=== PATIENT | male | born 1945 | race Caucasian/White ===

== ENCOUNTER 2019-09-15 19:54 | Inpatient (IN) ==
[2019-09-15] MEDS ORDERED: IOPAMIDOL 100 ML BOTTLE IV ONE (19:55)
[2019-09-15] MEDS ORDERED: ONDANSETRON 4 MG/2 ML VIAL IV ONE (20:19)
[2019-09-15] MEDS ORDERED: HYDROmorphone 2 MG/ML VIAL IV PRN (20:19)
[2019-09-15] MEDS ORDERED: 0.9 % SODIUM CHLORIDE 1,000 ML IV ONE (20:19)
[2019-09-15 20:36] LABS: POC Blood Urea Nitrogen 17 mg/dl (8-23); POC CO2 27 mmol/L (22-30); POC Calcium, Ionized 1.17 mmol/L (1.16-1.32); POC Chloride 103 mmol/L (96-108); POC Creatinine 0.9 mg/dl (0.7-1.2); POC Glucose, Random 122 mg/dL (70-105); POC Potassium 3.9 mmol/L (3.3-5.1); POC Sodium 140 mmol/L (133-145)
--- NOTE | 2019-09-15 20:39 | Emergency Department Note ---
Abdominal Pain HPI - General Chief Complaint: Abdominal Pain Stated Complaint: abdominal pain, bowel obstruction Time Seen by Provider: 09/15/19 19:57 Source: patient Mode of arrival: ambulatory Limitations: no limitations - History of Present Illness HPI Narrative: Reason for visit: Patient reports 9 out of 10 abdominal pain he describes as a sharp pressure. Ports the pain is a band across his upper 2 quadrants. Reports this pain began at 2:00 this afternoon and increases with activity. He reports extensive abdominal history involves partial colectomy and a history of colostomy. Reports a history of cholecystectomy having his appendix removed as well. He states that he has a history of bowel obstructions and that this current presentation and pain is much like previous experiences. He has chronic loose stools due to his history. He informed me that he has had 3 bowel movements today that were watery and smaller than usual. He denies passing flatulence since this pain began this afternoon. He denies specific chest pain or significant weakness. Denies palpations or shortness of breath. Patient reports that he ate a small amount of chicken for dinner today and had a propel to drink. Was at 1730 this evening. - Related Data Home Medications Medication Instructions Recorded Confirmed prednisolone acetate 1 % eye 1 drp OS DAILY 07/25/15 09/15/19 drops,suspension Brimonidine Ophth Drops [Alphagan 1 gtt OS BID 11/14/15 09/15/19 P Ophth Drops] brinzolamide 1 % eye 2 drp OS BID ml 12/24/17 09/15/19 drops,suspension Cetirizine HCl/Pseudoephedrine 1 tab PO ACB 09/15/19 09/15/19 [All Day Allergy-D Tablet] Clobetasol Propionate [Temovate] 1 applic TOPICAL DAILY 09/15/19 09/15/19 Omeprazole [Prilosec] 20 mg PO ACB 09/15/19 09/15/19 Tamsulosin HCl [Flomax] 0.4 mg PO QHS 09/15/19 09/15/19 metFORMIN HCL [Fortamet] 500 mg PO QHS 09/15/19 09/15/19 Previous Rx's Medication Instructions Recorded desonide 0.05 % topical ointment 1 applic TOPICAL QDAY #60 g 07/09/17 escitalopram oxalate 20 mg tablet 20 mg PO QDAY #90 tab 03/03/19 fluticasone propionate 50 1 spray INTRANASAL QDAY #9.9 g 04/08/19 mcg/actuation nasal spray,suspension Meclizine [Antivert] 25 mg PO TIDP PRN #20 tab 08/23/19 Allergies Allergy/AdvReac Type Severity Reaction Status Date / Time [id number]-Mfe Reductase AdvReac Intermediate Myalgia Verified 07/14/19 14:18 Inhibitor meperidine [From Demerol] AdvReac Mild Hypotension Verified 09/16/19 07:03 morphine AdvReac Mild Hallucinati Verified 09/16/19 07:03 ons Review of Systems Constitutional: Denies: fever, chills, weakness Eyes: Denies: vision change ENT ED: Denies: ear pain, throat pain, congestion Cardiovascular: Denies: chest pain, palpitations Respiratory: Denies: shortness of breath, cough, wheezes Gastrointestinal: Reports: abdominal pain, nausea, diarrhea (Reports watery smaller than usual stools see HPI.), constipation. Denies: vomiting Genitourinary: Denies: dysuria, frequency Musculoskeletal: Denies: back pain, joint swelling, joint pain Integumentary: Denies: rash, lesions Neurological: Denies: headache, weakness, numbness Endocrine: Denies: fatigue Hematological/Lymphatic: Denies: easy bleeding, easy bruising, lymphadenopathy Allergic/Immunologic: Denies: urticaria Abdominal Pain PMH - Past Medical History Medical history: Reports: DM, hypertension, other. Denies: chronic anticoagulation, chronic narcotics, CVA, myocardial infarction Psychiatric history: Reports: no psych history - Social History Smoking status: Former smoker Drug use: Reports: none Physical Exam Limitations: no limitations General appearance: alert Head: atraumatic, normocephalic, normal inspection Eye: Present: normal appearance, PERRL. Absent: scleral icterus ENT: Present: normal exam, normal oropharynx, mucous membranes moist. Absent: nasal congestion Neck: Present: normal inspection, full ROM, trachea midline. Absent: tenderness, lymphadenopathy Respiratory: Present: normal lung sounds bilaterally. Absent: respiratory distress Cardiovascular: Present: regular rate, normal rhythm Abdominal: Present: distention, tenderness, guarding, hyperactive bowel sounds, hypoactive bowel sounds, mass (Noticed the mass left upper quadrant, patient reports this is unusual), scar (Old well-healed scars and prior procedures. See HPI.). Absent: rigidity, normal bowel sounds (Noticed hyperactive bowel tones upper 2 quadrants. Hypoactive lower 2 quadrants.), organomegaly, Faye's sign, Rovsing's sign, tenderness at [place]'s Point Abdominal tenderness: Present: RUQ, LUQ (Ports pressure in both upper quadrants. Tolerates light palpation.). Absent: karthik umbilical Extremities: Present: normal inspection, full ROM. Absent: tenderness Back: Present: normal inspection, full ROM. Absent: tenderness, CVA tenderness (R), CVA tenderness (L) Neurological: Present: alert, oriented X3, CN II-XII intact, normal gait Psychiatric: Present: normal affect, normal mood (Patient is pleasant good historian.) Skin: Present: warm, dry, intact, normal color. Absent: diaphoretic Course Course Narrative: Current plan is to the patient's abdominal pain and nausea. Patient's history presentation will order a CT abdomen with contrast to search for bowel obstruction or other abdominal disease that may be causing presentation. After reviewing CT results I discussed this with Dr. galan. He directed me to call the surgeon for possible admit. I talked to Dr. Melgoza. He has agreed to admit this patient tonight. Discussed this with Dr. galan and turned over care to him. Vital Signs Temperature 96.7 F L 09/15/19 19:57 Pulse Rate 62 09/15/19 19:57 Respiratory Rate 16 09/15/19 19:57 Blood Pressure 155/94 09/15/19 19:57 Pulse Oximetry (%) 97 09/15/19 19:57 Temperature 98.0 F 09/17/19 13:30 Pulse Rate 58 L 09/17/19 13:30 Respiratory Rate 16 09/17/19 13:30 Blood Pressure 138/81 09/17/19 13:30 Pulse Oximetry (%) 98 09/17/19 13:30 Abdominal Pain - Differential Diagnosis Differential Diagnosis: Likely: abdominal pain, constipation, diverticulitis, gastroenteritis, pancreatitis, small bowel obstruction - Lab Data Result diagrams: 09/15/19 20:26 09/15/19 20:26 Lab Results 09/15/19 09/15/19 09/15/19 Range/Units 20:09 20:26 20:26 WBC 7.7 (4.50-11.00) K/mcL RBC 5.17 (4.63-6.08) M/mcL Hgb 17.2 (13.7-17.5) g/dL Hct 47.6 (40.1-51.0) % POC Hct 50.0 (41.0-55.0) % MCV 92.1 (80.0-100.0) fL MCH 33.3 (26.0-34.0) pg MCHC 36.1 H (31.0-36.0) g/dL RDW 12.3 (11.5-14.5) % Plt Count 204 (140-440) K/mcL MPV 9.2 (7.4-10.4) fL Gran % 67.6 (38.0-78.0) % Lymph % (Auto) 22.1 (15.5-49.0) % [place] % (Auto) 7.4 (1.0-12.0) % Eos % (Auto) 2.5 (0.0-7.0) % Baso % (Auto) 0.4 (0.0-2.0) % Gran # 5.20 (1.80-8.00) K/mcL Lymph # (Auto) 1.70 (1.50-4.80) K/mcL [place] # (Auto) 0.57 (0.10-0.90) K/mcL Eos # (Auto) 0.19 (0.00-0.70) K/mcL Baso # (Auto) 0.03 (0.00-0.30) K/mcL POC Sodium 140 (133-145) mmol/L Sodium 139 (133-145) mmol/L POC Potassium 3.9 (3.3-5.1) mmol/L Potassium 3.9 (3.3-5.1) mmol/L POC Chloride 103 (96-108) mmol/L Chloride 100 (96-108) mmol/L Carbon Dioxide 25 (22-30) mmol/L POC Total CO2 27 (22-30) mmol/L Anion Gap 14.0 (8-16) POC BUN 17 (8-23) mg/dl BUN 16 (8-23) mg/dl Creatinine 0.9 (0.7-1.2) mg/dl POC Creatinine 0.9 (0.7-1.2) mg/dl GFR Calculation 84 Glucose 123 H (70-105) mg/dL POC Glucose 122 H (70-105) mg/dL Calcium 9.7 (8.6-10.4) mg/dl POC WB Ioniz Calcium 1.17 (1.16-1.32) mmol/L Total Bilirubin 1.0 (0.0-1.0) mg/dL AST 21 (0-37) U/l ALT 28 (0-40) U/l Alkaline Phosphatase 92 (39-117) U/L Total Protein 7.3 (5.9-8.4) gm/dL Albumin 4.4 (3.2-5.2) gm/dL Globulin 2.9 (2.2-3.7) gm/dL Albumin/Globulin Ratio 1.5 (1.0-2.3) Lipase 31 (7-60) U/L Urine Color Yellow Urine Appearance Clear Urine pH 7.0 (5.0-9.0) Ur Specific [place] 1.015 (1.000-1.035) Urine Protein Neg (NEG) mg/dL Urine Glucose (UA) Negative (NEG) mg/dL Urine Ketones Neg (NEG) mg/dL Urine Occult Blood Neg (<0.03) mg/dL Urine Nitrate Neg (NEG) Urine Bilirubin Neg (NEG) mg/dL Urine Urobilinogen Neg (NEG) mg/dL Ur Leukocyte Esterase Neg (NEG) /uL Urine RBC 0 (0-1) /hpf Urine WBC 2 (0-4) /hpf Ur Squamous Epith Cells 0 (0-4) /hpf Urine Bacteria 0 (0) /hpf Ur Culture Indicated? No Disposition Pt seen by PAYROLL AND BENEFITS ANALYST/PA only: No Clinical Impression: Small bowel obstruction Disposition: Xfer As Inpt ([facility]) Condition: Good
[2019-09-15 21:00] LABS: Basophils # (Auto) 0.03 K/mcL (0.00-0.30); Basophils % (Auto) 0.4 % (0.0-2.0); Eosinophils # (Auto) 0.19 K/mcL (0.00-0.70); Eosinophils % (Auto) 2.5 % (0.0-7.0); Granulocytes % (Auto) 67.6 % (38.0-78.0); Hematocrit 47.6 % (40.1-51.0); Hemoglobin 17.2 g/dL (13.7-17.5); Lymphocytes % (Auto) 22.1 % (15.5-49.0); Mean Cell Volume 92.1 fL (80.0-100.0); Mean Corpuscular HGB Conc 36.1 g/dL (31.0-36.0); Mean Platelet Volume 9.2 fL (7.4-10.4); Monocytes # (Auto) 0.57 K/mcL (0.10-0.90); Monocytes % (Auto) 7.4 % (1.0-12.0); Platelet Count 204 K/mcL (140-440); RBC 5.17 M/mcL (4.63-6.08); Red Cell Distribution Width 12.3 % (11.5-14.5); WBC 7.7 K/mcL (4.50-11.00)
[2019-09-15 21:10] LABS: Appearance,Urine CLEAR; Bacteria,Urine 0 /hpf (0); Bilirubin,Urine NEG (NEG); Color,Urine YELLOW; Culture Indicated,Urine NO; Glucose,Urine (UA) NEGATIVE (NEG); Ketones,Urine NEG (NEG); Leukocyte Esterase,Urine NEG /uL (NEG); Nitrate,Urine NEG (NEG); Protein,Urine NEG (NEG); Specific Gravity,Urine 1.015 (1.000-1.035); Urine Blood NEG mg/dL (<0.03); Urine RBC 0 /hpf (0-1); Urine Squamous Epithelial Cell 0 /hpf (0-4); Urine WBC 2 /hpf (0-4); Urobilinogen,Urine NEG (NEG)
[2019-09-15 21:16] LABS: ALT/SGPT 28 U/l (0-40); AST/SGOT 21 U/l (0-37); Albumin 4.4 gm/dL (3.2-5.2); Albumin/Globulin Ratio 1.5 (1.0-2.3); Alkaline Phosphatase 92 U/L (39-117); Blood Urea Nitrogen 16 mg/dl (8-23); Calcium 9.7 mg/dl (8.6-10.4); Carbon Dioxide 25 mmol/L (22-30); Chloride 100 mmol/L (96-108); Globulin 2.9 gm/dL (2.2-3.7); Glomerular Filtration Rate 84; Glucose 123 mg/dL (70-105)
[2019-09-16] MEDS ORDERED: HYDROmorphone 2 MG/ML VIAL IV PRN (00:20)
[2019-09-16] MEDS ORDERED: DEXTROSE 31 GM ORAL.SUSP PO PRN (00:21)
[2019-09-16] MEDS ORDERED: ONDANSETRON 4 MG/2 ML VIAL IV PRN (00:21)
[2019-09-16] MEDS ORDERED: DEXTROSE 50% 50 ML VIAL IV PRN (00:21)
[2019-09-16] MEDS: 0.9 % SODIUM CHLORIDE 1,000 ML IV SCH ×4 (00:33→18:55)
[2019-09-16] MEDS: INSULIN LISPRO 1 UNIT/0.01 ML UNIT SQ SCH ×4 (06:35→21:56)
--- NOTE | 2019-09-16 07:05 | Cat Scan Report ---
CLINICAL INFORMATION: Abdominal pain. History of small bowel obstruction and prior bowel resection COMPARISON: Abdomen and pelvic CT 07/03/[address] 08/19/2013 TECHNIQUE: Following enteric contrast, 80 cc of Isovue-370 were injected intravenously, and 60 seconds later, 0.625 mm helical slices were obtained from the mid heart through the subtrochanteric regions. Following reconstruction, 2.5 mm sagittal, coronal and axial reformatted images were processed and reviewed at bone, lung and soft tissue windows. Five minutes later, 0.625 mm helical slices were obtained from the mid heart through the kidneys and viewed at soft tissue windows.The exam was performed using radiation dose optimization techniques including, but not limited to, automated exposure control, adjustment of the mA and/or kV according to patient size and use of iterative reconstruction technique. FINDINGS: The lung bases show minimal scattered scarring and/or atelectasis with a few bullae. There are no effusions. 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 This is unchanged. Calcific plaque is scattered throughout visualized coronary arteries. Abdominal images show minimal fatty change in the liver which is stable - no focal hepatic lesion. The gallbladder is surgically absent. Common bile duct is mildly dilated, 8 mm, compatible with post cholecystectomy state. No change. 3-4 small calcifications within the pancreatic body seen as before. The pancreas is, otherwise, normal. A 14 mm simple cyst and adjacent scarring in the anterior cortex mid right kidney is again seen. No significant renal abnormality. Both adrenal glands and spleen are normal. The aorta is normal diameter with moderate scattered fibrofatty calcific plaque. There is a mild (50% stenosis) of the left renal artery origin. The remaining aortic branches contain scattered atherosclerotic plaque, but no stenoses. Pelvic images show the prostate, seminal vesicles and urinary bladder to be normal. There is no adenopathy. Subtotal colectomy changes noted: The ascending, transverse and descending colon are absent. The small bowel appears to be anastomosed to the proximal sigmoid colon (please correlate with surgical anatomy). The stomach, duodenum and jejunum are moderately dilated to a transition point in the anterior right false pelvis (axial image 116, coronal image 29 and sagittal image 71). There appears to be adhesions or stricture at the transition point. The small bowel distal to the transition is markedly decompressed although there is moderate amount of stool present within the rectosigmoid residual colon. There is no free air or free fluid. Bone windows show degenerative changes in lumbar spine, but no focal osseous lesions IMPRESSION: 1. Partial small bowel obstruction of the distal jejunum due to adhesions or stricture in the anterior right false pelvis. No evidence of free air suggests perforation or free fluid to suggest third spacing. 2. Partial small bowel resection and subtotal colectomy noted. There is likely an anastomosis between the distal small bowel and proximal sigmoid colon - please correlate with known postsurgical anatomy. 3. Apical thinning with left cardiac ventricle with subendocardial fat suggesting remote subendocardial infarct please correlate with clinical history. Atherosclerotic plaque scattered within the visualized coronary arteries. 4. 50% stenosis left renal artery origin. Scattered atherosclerotic plaque in the abdominal aorta Interpreted and Authenticated by: Steve Elias 09/16/19
[2019-09-16] MEDS ORDERED: INSULIN LISPRO 1 UNIT/0.01 ML UNIT SQ SCH (07:30)
--- NOTE | 2019-09-16 08:30 | General Surg History&Physical ---
History of Present Illness Patient information: Note initiated : 09/16/19 at 8:28 am Service Date, if different from initiated Date: [] Patient: Steve Cavazos 74 y/o M admitted on 09/15/19 for Constipation. Chief Complaint: Abdominal pain HPI: Mr. Cavazos is a 74 year old M With history of 4 separate hospitalizations for small bowel obstruction who yesterday mid-day developed crampy abdominal pain leading him to come to the emergency room. He underwent a CT scan in the emergency room that showed evidence of partial small bowel obstruction and dilated stomach. He was admitted overnight with IV fluids, bowel rest, and symptomatic medication as needed. Overnight he states that his pain has resolved and his belly feels normal, less distended. He denies nausea or vomiting during the past 24 hours. He denies bowel movement in the last 24 hours but admits to passing quite a bit of flatus this morning. His surgical history includes partial colectomy and colostomy for diverticular disease followed by colostomy closure and at another time hernia repair at the colostomy site. Review of Systems - Gastrointestinal abdominal pain, bloating, cramping, nausea, no vomiting Past History Past medical history: All Active Problems (Last Reviewed 07/14/19 @ 13:51 by Steve Pendleton DO) Acute vestibular neuronitis (Acute) Small bowel obstruction (Acute) Myalgia due to HMG CoA reductase inhibitor (Acute) Tension headache (Chronic) Abdominal pain (Acute) Small bowel obstruction, partial (Acute) Allergic rhinitis (Acute) DM type 2 (diabetes mellitus, type 2) (Chronic) Dysmetabolic syndrome X (Chronic) Obstructive sleep apnea (Chronic) Hyperlipidemia (Chronic) Patellofemoral syndrome (Chronic) Diverticula, colon (Chronic) penitentiary (current) use of oral hypoglycemic drugs (Chronic) penitentiary (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) Metabolic Syndrome X (Chronic) Neck pain on left side (Chronic) Greater trochanteric bursitis (Chronic) Environmental allergies (Chronic) Right knee pain (Chronic) History of continuous positive airway pressure (CPAP) dependence (Chronic) Osteoarthrosis multiple sites, 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) Glaucoma (Chronic) Enlarged prostate (Chronic) Elevated LFTs (Chronic) Dizziness (Acute) Depression (Chronic) Degenerative disc disease (Chronic) Bradycardia (Chronic) Allergy (Chronic) Past Surgical History (Last Reviewed 07/14/19 @ 13:51 by Steve Pendleton DO) Colostomy status (Resolved) History of cataract surgery (Resolved) History of cholecystectomy (Resolved) History of colectomy (Resolved) History of colonoscopy (Resolved) History of colostomy (Resolved) History of esophagogastroduodenoscopy (EGD) (Resolved) History of eye surgery (Resolved) History of hernia surgery (Resolved) History of surgery (Resolved) History of surgery (Resolved) History of tonsillectomy (Resolved) History of vasectomy (Resolved) History of surgery (Inactive) Family History (Last Reviewed 07/14/19 @ 13:51 by Steve Pendleton DO) Grandfather Malignant neoplasm of urinary bladder Father of unknown cause Mother of unknown cause Unknown Acute myocardial infarction Medications and Allergies Home Medications Medication Instructions Recorded Confirmed Type prednisolone acetate 1 % eye 1 drp OS DAILY 07/25/15 09/15/19 History drops,suspension Brimonidine Ophth Drops [Alphagan 1 gtt OS BID 11/14/15 09/15/19 History P Ophth Drops] blood-glucose meter See Dose Instructions .ROUTE 11/24/15 07/14/19 Rx .MEDSUPPLY #200 each blood glucose strip-disp meter See Dose Instructions .ROUTE 12/06/15 07/14/19 Rx .MEDSUPPLY #100 each lancets See Dose Instructions .ROUTE 12/06/15 07/14/19 Rx .MEDSUPPLY #100 each desonide 0.05 % topical ointment 1 applic TOPICAL QDAY #60 g 07/09/17 09/15/19 R x brinzolamide 1 % eye 2 drp OS BID ml 12/24/17 09/15/19 History drops,suspension escitalopram oxalate 20 mg tablet 20 mg PO QDAY #90 tab 03/03/19 09/15/19 Rx fluticasone propionate 50 1 spray INTRANASAL QDAY #9.9 g 04/08/19 09/15/19 Rx mcg/actuation nasal spray,suspension RX: Meclizine [Antivert] 25 mg PO TIDP PRN #20 tab 08/23/19 09/15/19 Rx RX: Cetirizine HCl/Pseudoephedrine 1 tab PO ACB 09/15/19 09/15/19 History [All Day Allergy-D Tablet] RX: Clobetasol Propionate 1 applic TOPICAL DAILY 09/15/19 09/15/19 History [Temovate] RX: Omeprazole [Prilosec] 20 mg PO ACB 09/15/19 09/15/19 History RX: Tamsulosin HCl [Flomax] 0.4 mg PO QHS 09/15/19 09/15/19 History RX: metFORMIN HCL [Fortamet] 500 mg PO QHS 09/15/19 09/15/19 History Allergies Allergy/AdvReac Type Severity Reaction Status Date / Time [id number]-Mgr Reductase AdvReac Intermediate Myalgia Verified 07/14/19 14:18 Inhibitor meperidine [From Demerol] AdvReac Mild Hypotension Verified 09/16/19 07:03 morphine AdvReac Mild Hallucinati Verified 09/16/19 07:03 ons Exam Temp Pulse Resp BP Pulse Ox 97.4 F 58 L 16 107/66 95 09/16/19 03:20 09/16/19 07:04 09/16/19 07:04 09/16/19 03:20 09/16/19 07:04 - General physical appearance well developed, well nourished, no distress - Eyes PERRL - Respiratory normal respiratory effort - Abdomen Abdomen: Present: soft, non tender, surgical scars. Absent: masses, guarding, rigid, rebound - Integumentary Present: no rash - Neurologic Present: normal coordination, normal sensation - Psychiatric Present: oriented to time, oriented to person, oriented to place, speech is normal, memory intact Results - Results Labs: Laboratory Results - last 72 hr 09/15/19 09/15/19 09/15/19 20:09 20:26 20:26 WBC 7.7 RBC 5.17 Hgb 17.2 Hct 47.6 POC Hct 50.0 MCV 92.1 MCH 33.3 MCHC 36.1 H RDW 12.3 Plt Count 204 MPV 9.2 Gran % 67.6 Lymph % (Auto) 22.1 [place] % (Auto) 7.4 Eos % (Auto) 2.5 Baso % (Auto) 0.4 Gran # 5.20 Lymph # (Auto) 1.70 [place] # (Auto) 0.57 Eos # (Auto) 0.19 Baso # (Auto) 0.03 POC Sodium 140 Sodium 139 POC Potassium 3.9 Potassium 3.9 POC Chloride 103 Chloride 100 Carbon Dioxide 25 POC Total CO2 27 Anion Gap 14.0 POC BUN 17 BUN 16 Creatinine 0.9 POC Creatinine 0.9 GFR Calculation 84 Glucose 123 H POC Glucose 122 H Calcium 9.7 POC WB Ioniz Calcium 1.17 Total Bilirubin 1.0 AST 21 ALT 28 Alkaline Phosphatase 92 Total Protein 7.3 Albumin 4.4 Globulin 2.9 Albumin/Globulin Ratio 1.5 Lipase 31 Urine Color Yellow Urine Appearance Clear Urine pH 7.0 Ur Specific [place] 1.015 Urine Protein Neg Urine Glucose (UA) Negative Urine Ketones Neg Urine Occult Blood Neg Urine Nitrate Neg Urine Bilirubin Neg Urine Urobilinogen Neg Ur Leukocyte Esterase Neg Urine RBC 0 Urine WBC 2 Ur Squamous Epith Cells 0 Urine Bacteria 0 Ur Culture Indicated? No CT scan - abdomen: report reviewed, image reviewed Assessment and Plan (1) Small bowel obstruction, partial Overnight his abdominal distention and crampy pain has resolved. He reports passing a large amount of flatus. We discussed a trial of clear liquids versus a Gastrografin challenge study. We agreed on the former. I wrote for clear liquid diet and MiraLAX 17 g twice daily. His IV fluids were decreased to 50 cc/h. We'll observe today with the above and if he progresses well without recurrent symptoms we will then advance diet as tolerated accordingly. I anticipate that he will need to stay over 1 more night to be reassured that his partial obstruction has adequately resolved. Status: Acute
[2019-09-16] MEDS ORDERED: POLYETHYLENE GLYCOL 3350 17 GM PACKET PO SCH (09:00)
--- NOTE | 2019-09-16 11:22 | Brief Operative Note ---
Date of procedure: 09/16/19 Pre-op diagnosis: appendicitis Post-op diagnosis: same Procedure: Laparoscopic appendectomy Grafts/Implants: No Anesthesia: GETA, local Complications: none Surgeon: Huang Melgoza Brush Clearing Laborer: PCP No Specimens Removed/Pathology: other (appendix) Condition: stable Disposition: PACU
--- NOTE | 2019-09-16 16:26 | General Surgery Progress Note ---
Subjective Patient reports: feels better Narrative: Note initiated : 09/16/19 at 4:24 pm Service Date, if different from initiated Date: [] Patient: Steve Cavazos 74 y/o M admitted on 09/15/19 for Constipation. Chief Complaint: [pSBO] Denies pain. Pertinent ROS: Multiple BMs Objective Temp Pulse Resp BP Pulse Ox 97.4 F 59 L 16 129/75 98 09/16/19 12:00 09/16/19 12:00 09/16/19 12:00 09/16/19 12:00 09/16/19 14:00 - Additional Data Intake & Output - Last 24 hours: Intake & Output 09/14/19 09/15/19 09/16/19 09/17/19 05:59 05:59 05:59 05:59 Intake Total 1000 2240 Output Total 2200 Balance 1000 40 Weight 187 lb 6.4 oz - Abdomen non tender - Labs 09/15/19 20:26 09/15/19 20:26 Diabetes panel 09/15/19 Range/Units 20:26 Sodium 139 (133-145) mmol/L Potassium 3.9 (3.3-5.1) mmol/L Chloride 100 (96-108) mmol/L Carbon Dioxide 25 (22-30) mmol/L BUN 16 (8-23) mg/dl Creatinine 0.9 (0.7-1.2) mg/dl Glucose 123 H (70-105) mg/dL Calcium 9.7 (8.6-10.4) mg/dl AST 21 (0-37) U/l ALT 28 (0-40) U/l Alkaline Phosphatase 92 (39-117) U/L Total Protein 7.3 (5.9-8.4) gm/dL Albumin 4.4 (3.2-5.2) gm/dL Calcium panel 09/15/19 Range/Units 20:26 Calcium 9.7 (8.6-10.4) mg/dl Albumin 4.4 (3.2-5.2) gm/dL Pituitary panel 09/15/19 Range/Units 20:26 Sodium 139 (133-145) mmol/L Potassium 3.9 (3.3-5.1) mmol/L Chloride 100 (96-108) mmol/L Carbon Dioxide 25 (22-30) mmol/L BUN 16 (8-23) mg/dl Creatinine 0.9 (0.7-1.2) mg/dl Glucose 123 H (70-105) mg/dL Calcium 9.7 (8.6-10.4) mg/dl Adrenal panel 09/15/19 Range/Units 20:26 Sodium 139 (133-145) mmol/L Potassium 3.9 (3.3-5.1) mmol/L Chloride 100 (96-108) mmol/L Carbon Dioxide 25 (22-30) mmol/L BUN 16 (8-23) mg/dl Creatinine 0.9 (0.7-1.2) mg/dl Glucose 123 H (70-105) mg/dL Calcium 9.7 (8.6-10.4) mg/dl Total Bilirubin 1.0 (0.0-1.0) mg/dL AST 21 (0-37) U/l ALT 28 (0-40) U/l Alkaline Phosphatase 92 (39-117) U/L Total Protein 7.3 (5.9-8.4) gm/dL Albumin 4.4 (3.2-5.2) gm/dL Assessment and Plan (1) Small bowel obstruction, partial Status: Acute Assessment and plan: Doing well with clears. Advance to fulls, decrease IVF, stop miralax If doing well will advance to soft diet in am and dc home Current Visit: Yes - Time Spent With Patient Total time spent is greater than 50% in coordination of care (as documented) at patient's floor/unit and/or counseling patient:
[2019-09-17] MEDS: 0.9 % SODIUM CHLORIDE 1,000 ML IV SCH (06:45)
[2019-09-17] MEDS: INSULIN LISPRO 1 UNIT/0.01 ML UNIT SQ SCH ×2 (06:45→11:49)
--- NOTE | 2019-09-17 08:01 | Discharge Summary ---
Providers - Providers Patient information: Note initiated : 09/17/19 at 7:59 am Service Date, if different from initiated Date: [] Patient: Steve Cavazos 74 y/o M admitted on 09/15/19 for Constipation. Chief Complaint: pain due to partial small bowel obstruction Date of admission: 09/15/19 Discharge date: 09/17/19 Attending physician: Huang Melgoza Hospitalization Hospital Course: Mister Elizondo was admitted to [facility] on 09/15/19 through the emergency room with a diagnosis of partial small bowel obstruction. He had multiple admissions in the past 15 years for the same complaint. He was placed on bowel rest and IV fluids. Overnight he had evidence of return of bowel function and was started on clear liquid diet. He denied pain continuously, tolerated clear liquid diet, and was advanced to full liquid diet. Once again overnight at the next hospital day he tolerated full liquid diet and was advanced to soft diet. On hospital day #3 that is September 17, 2019 he was discharged to home in stable and good condition with instructions to follow-up as an outpatient. See hospital records for further details Discharge diagnosis: partial small bowel obstruction Reason for admission: partial small bowel obstruction Procedures: None Pertinent studies/significant findings: CT scan in the emergency room at the time of admission showed evidence of partial small bowel obstruction Complications: None Exam Temp Pulse Resp BP Pulse Ox 97.6 F 55 L 14 112/68 95 09/17/19 04:42 09/17/19 06:48 09/17/19 06:48 09/17/19 04:42 09/17/19 06:48 - General physical appearance no distress - Cardiovascular Cardiovascular exam IM: Present: normal rate and rhythm - Respiratory normal respiratory effort - Abdomen Abdomen: Present: soft, non tender. Absent: distended - Neurologic Present: normal coordination - Musculoskeletal Present: normal gait, normal posture - Psychiatric Present: oriented to time, oriented to person, oriented to place, speech is normal, memory intact Discharge Plan - Patient/Caregiver Discharge Instructions Activity: other (as tolerated) Diet: Regular Diet (advised to remain on a soft diet for a day or 2 before advancing to regular diet. Advised to consider possibly avoiding foods that may aggravate symptoms such as raw [place] fruits or vegetables and possibly raw walnuts. Advised to stick to clear liquids when symptoms began to develop) - Follow up Plan Follow up with: Steve Pendleton DO [Primary Care Provider] - Disposition: Home, Self-Care Care Plan Goals: Follow-up as needed Prognosis: Good Rehab Potential: Good I certify that the patient requires SNF services.: No Overall status at discharge: patient is back to baseline Pending Studies Resuscitation Status Do Not Resuscitate Diet Full Liquid Diet Start SatSep 16 1608 Diagnostic Test (Pha) (Accu-Chek) 1 each FS ACHS [facility] Last Admin: 09/17/19 06:45 Dose: 1 each Documented by: Admin: 09/16/19 21:56 Dose: 1 each Documented by: JANINE Sodium Chloride (Sodium Chloride 0.9%) 1,000 mls @ 75 mls/hr IV .[id number] [facility] Last Admin: 09/17/19 06:45 Dose: Not Given Documented by: Admin: 09/16/19 18:55 Dose: 75 mls/hr Documented by: Admin: 09/16/19 09:35 Dose: Not Given Documented by: ERICA Insulin Human Lispro (Humalog) 0 unit SQ [facility]; Protocol Last Admin: 09/17/19 06:45 Dose: Not Given Documented by: Admin: 09/16/19 21:56 Dose: Not Given Documented by: JANINE Shift Summary 09/17/19 03:12 Shift Summary by Rosalba Egan Pt slept all night. Stands at bedside to void. Has had no pain meds tonight. Tolerating full diet w/o nausea. Had several BM yesterday, loose, but normal for pt. Plan is to d/c home today. Initialized on 09/17/19 03:12 - END OF NOTE
--- NOTE | 2019-10-05 10:52 | Emergency Department Note ---
Abdominal Pain HPI - General Chief Complaint: Abdominal Pain Stated Complaint: abdominal pain, bowel obstruction Time Seen by Provider: 09/15/19 19:57 Source: patient Mode of arrival: ambulatory Limitations: no limitations - History of Present Illness HPI Narrative: I consulted with the midlevel regarding this patient. - Related Data Home Medications Medication Instructions Recorded Confirmed prednisolone acetate 1 % eye 1 drp OS DAILY 07/25/15 10/05/19 drops,suspension Brimonidine Ophth Drops [Alphagan 1 gtt OS BID 11/14/15 10/05/19 P Ophth Drops] brinzolamide 1 % eye 2 drp OS BID ml 12/24/17 10/05/19 drops,suspension Cetirizine HCl/Pseudoephedrine 1 tab PO ACB 09/15/19 10/05/19 [All Day Allergy-D Tablet] Clobetasol Propionate [Temovate] 1 applic TOPICAL DAILY 09/15/19 10/05/19 Omeprazole [Prilosec] 20 mg PO ACB 09/15/19 10/05/19 Previous Rx's Medication Instructions Recorded desonide 0.05 % topical ointment 1 applic TOPICAL QDAY #60 g 07/09/17 fluticasone propionate 50 1 spray INTRANASAL QDAY #9.9 g 04/08/19 mcg/actuation nasal spray,suspension Meclizine [Antivert] 25 mg PO TIDP PRN #20 tab 08/23/19 metformin 500 mg tablet,extended 500 mg PO QHS #90 tab 09/23/19 release 24hr tamsulosin 0.4 mg capsule 0.4 mg PO QHS #90 cap 09/23/19 escitalopram oxalate 20 mg tablet 20 mg PO QDAY #90 tab 09/28/19 Allergies Allergy/AdvReac Type Severity Reaction Status Date / Time Nvslvwy-[id number]-[id number] Reductase AdvReac Intermediate Myalgia Verified 10/05/19 10:47 Inhibitor meperidine [From Demerol] AdvReac Mild Hypotension Verified 10/05/19 10:47 morphine AdvReac Mild Hallucinati Verified 10/05/19 10:47 ons Review of Systems Constitutional: Denies: fever, chills, weakness Eyes: Denies: vision change ENT ED: Denies: ear pain, throat pain, congestion Cardiovascular: Denies: chest pain, palpitations Respiratory: Denies: shortness of breath, cough, wheezes Gastrointestinal: Reports: abdominal pain, nausea, diarrhea (Reports watery smaller than usual stools see HPI.), constipation. Denies: vomiting Genitourinary: Denies: dysuria, frequency Musculoskeletal: Denies: back pain, joint swelling, joint pain Integumentary: Denies: rash, lesions Neurological: Denies: headache, weakness, numbness Endocrine: Denies: fatigue Hematological/Lymphatic: Denies: easy bleeding, easy bruising, lymphadenopathy Allergic/Immunologic: Denies: urticaria Abdominal Pain PMH - Past Medical History Medical history: Reports: DM, hypertension, other. Denies: chronic anticoagulation, chronic narcotics, CVA, myocardial infarction Psychiatric history: Reports: no psych history - Social History Smoking status: Never smoker Drug use: Reports: none Physical Exam Limitations: no limitations General appearance: alert Course Vital Signs Temperature 96.7 F L 09/15/19 19:57 Pulse Rate 62 09/15/19 19:57 Respiratory Rate 16 09/15/19 19:57 Blood Pressure 155/94 09/15/19 19:57 Pulse Oximetry (%) 97 09/15/19 19:57 Temperature 98.0 F 09/17/19 13:30 Pulse Rate 58 L 09/17/19 13:30 Respiratory Rate 16 09/17/19 13:30 Blood Pressure 138/81 09/17/19 13:30 Pulse Oximetry (%) 98 09/17/19 13:30 Abdominal Pain - MDM Narrative Medical decision making narrative: I agree with the need for surgical consult and the patient called the surgeon who consulted on the patient and felt he could be discharged with follow-up with his primary doctor. - Lab Data Lab results reviewed: Yes I reviewed the patient's lab results. Result diagrams: 09/15/19 20:26 09/15/19 20:26 Lab Results 09/15/19 09/15/19 09/15/19 Range/Units 20:09 20:26 20:26 WBC 7.7 (4.50-11.00) K/mcL RBC 5.17 (4.63-6.08) M/mcL Hgb 17.2 (13.7-17.5) g/dL Hct 47.6 (40.1-51.0) % POC Hct 50.0 (41.0-55.0) % MCV 92.1 (80.0-100.0) fL MCH 33.3 (26.0-34.0) pg MCHC 36.1 H (31.0-36.0) g/dL RDW 12.3 (11.5-14.5) % Plt Count 204 (140-440) K/mcL MPV 9.2 (7.4-10.4) fL Gran % 67.6 (38.0-78.0) % Lymph % (Auto) 22.1 (15.5-49.0) % [place] % (Auto) 7.4 (1.0-12.0) % Eos % (Auto) 2.5 (0.0-7.0) % Baso % (Auto) 0.4 (0.0-2.0) % Gran # 5.20 (1.80-8.00) K/mcL Lymph # (Auto) 1.70 (1.50-4.80) K/mcL [place] # (Auto) 0.57 (0.10-0.90) K/mcL Eos # (Auto) 0.19 (0.00-0.70) K/mcL Baso # (Auto) 0.03 (0.00-0.30) K/mcL POC Sodium 140 (133-145) mmol/L Sodium 139 (133-145) mmol/L POC Potassium 3.9 (3.3-5.1) mmol/L Potassium 3.9 (3.3-5.1) mmol/L POC Chloride 103 (96-108) mmol/L Chloride 100 (96-108) mmol/L Carbon Dioxide 25 (22-30) mmol/L POC Total CO2 27 (22-30) mmol/L Anion Gap 14.0 (8-16) POC BUN 17 (8-23) mg/dl BUN 16 (8-23) mg/dl Creatinine 0.9 (0.7-1.2) mg/dl POC Creatinine 0.9 (0.7-1.2) mg/dl GFR Calculation 84 Glucose 123 H (70-105) mg/dL POC Glucose 122 H (70-105) mg/dL Calcium 9.7 (8.6-10.4) mg/dl POC WB Ioniz Calcium 1.17 (1.16-1.32) mmol/L Total Bilirubin 1.0 (0.0-1.0) mg/dL AST 21 (0-37) U/l ALT 28 (0-40) U/l Alkaline Phosphatase 92 (39-117) U/L Total Protein 7.3 (5.9-8.4) gm/dL Albumin 4.4 (3.2-5.2) gm/dL Globulin 2.9 (2.2-3.7) gm/dL Albumin/Globulin Ratio 1.5 (1.0-2.3) Lipase 31 (7-60) U/L Urine Color Yellow Urine Appearance Clear Urine pH 7.0 (5.0-9.0) Ur Specific [place] 1.015 (1.000-1.035) Urine Protein Neg (NEG) mg/dL Urine Glucose (UA) Negative (NEG) mg/dL Urine Ketones Neg (NEG) mg/dL Urine Occult Blood Neg (<0.03) mg/dL Urine Nitrate Neg (NEG) Urine Bilirubin Neg (NEG) mg/dL Urine Urobilinogen Neg (NEG) mg/dL Ur Leukocyte Esterase Neg (NEG) /uL Urine RBC 0 (0-1) /hpf Urine WBC 2 (0-4) /hpf Ur Squamous Epith Cells 0 (0-4) /hpf Urine Bacteria 0 (0) /hpf Ur Culture Indicated? No - Radiology Data Radiology results reviewed: Yes I reviewed the patient's radiology results. Disposition Pt seen by OVEN TECHNICIAN/PA only: No Clinical Impression: Small bowel obstruction Disposition: Home, Self-Care Condition: Good
== END 2019-09-17 15:55 | disposition home or self-care (01) ==
LOC: ED 19:54 → MEDSUR 23:30
PROVIDERS: ADMIT Surgery; ATTEND Surgery

== ENCOUNTER 2020-01-09 03:01 | Inpatient (IN) ==
[2020-01-09] MEDS ORDERED: IOPAMIDOL 100 ML BOTTLE IV ONE (03:02)
[2020-01-09] MEDS ORDERED: LACTATED RINGERS 1,000 ML IV ONE (03:23)
[2020-01-09] MEDS ORDERED: ONDANSETRON 4 MG/2 ML VIAL IV ONE (03:23)
[2020-01-09] MEDS: HYDROmorphone* 2 MG/ML VIAL IV SCH ×2 (03:51→08:30)
[2020-01-09 03:57] LABS: POC Blood Urea Nitrogen 20 mg/dl (8-23); POC CO2 24 mmol/L (22-30); POC Calcium, Ionized 1.23 mmol/L (1.16-1.32); POC Chloride 103 mmol/L (96-108); POC Creatinine 0.8 mg/dl (0.7-1.2); POC Glucose, Random 186 mg/dL (70-105); POC Potassium 3.6 mmol/L (3.3-5.1); POC Sodium 140 mmol/L (133-145)
[2020-01-09 04:20] LABS: Basophils # (Auto) 0.03 K/mcL (0.00-0.30); Basophils % (Auto) 0.4 % (0.0-2.0); Eosinophils # (Auto) 0.12 K/mcL (0.00-0.70); Eosinophils % (Auto) 1.6 % (0.0-7.0); Hematocrit 49.1 % (40.1-51.0); Hemoglobin 17.4 g/dL (13.7-17.5); Lymphocytes % (Auto) 20.2 % (15.5-49.0); Mean Corpuscular HGB Conc 35.4 g/dL (31.0-36.0); Monocytes # (Auto) 0.43 K/mcL (0.10-0.90); Monocytes % (Auto) 5.8 % (1.0-12.0); Platelet Count 185 K/mcL (140-440); RBC 5.28 M/mcL (4.63-6.08); Red Cell Distribution Width 12.2 % (11.5-14.5); WBC 7.4 K/mcL (4.50-11.00)
[2020-01-09 04:48] LABS: ALT/SGPT 23 U/l (0-40); AST/SGOT 21 U/l (0-37); Albumin 4.2 gm/dL (3.2-5.2); Albumin/Globulin Ratio 1.4 (1.0-2.3); Alkaline Phosphatase 88 U/L (39-117); Bilirubin,Total 1.4 mg/dL (0.0-1.0); Blood Urea Nitrogen 19 mg/dl (8-23); Calcium 9.3 mg/dl (8.6-10.4); Carbon Dioxide 25 mmol/L (22-30); Chloride 101 mmol/L (96-108); Globulin 2.9 gm/dL (2.2-3.7); Glomerular Filtration Rate 89; Glucose 185 mg/dL (70-105)
[2020-01-09] MEDS ORDERED: PROMETHAZINE 25 MG/ML VIAL IM PRN (05:25)
--- NOTE | 2020-01-09 06:07 | XRay Report ---
INDICATION: NG tube placement TECHNIQUE: Supine abdomen. COMPARISON: Abdominal and pelvic CT scan dated 01/09/2020 FINDINGS:Esophagogastric tube with its tip in the stomach. Abdomen is relatively gasless. Dilated small bowel is not appreciated. There is contrast material within the renal collecting systems. IMPRESSION: Esophagogastric tube in the stomach Interpreted and Authenticated by: Steve Watkins 01/09/20
--- NOTE | 2020-01-09 06:07 | Cat Scan Report ---
INDICATION: abd pain. History of previous surgery. History of small bowel obstruction COMPARISON: Previous CT scan dated 09/15/2019 TECHNIQUE: Axial images were obtained through the abdomen and pelvis. Sagittally and coronally reformatted images. 80 mL Isovue 370 injected intravenously. Oral contrast material was not administered FINDINGS: Lung bases:Negative. No pulmonary parenchymal nodule. No pleural fluid or pericardial fluid. There is marked left ventricular apical wall thinning. No well-defined apical aneurysm Liver:Negative. No focal intrahepatic mass. No focal abnormality. Liver contour is smooth. No evidence for cirrhosis Gallbladder, billary:Previous cholecystectomy. No dilated bile ducts Spleen:No splenomegaly. Normal enhancement of splenic and portal veins. Pancreas:No pancreatic mass. No peripancreatic abnormality Adrenal glands:Negative Kidneys, ureters, bladder:No solid renal mass. There is a benign right renal cyst. No hydronephrosis. No obstructing calculi. There is no hydroureter. No ureteral stone No bladder calculi or detectable mass Gastrointestinal:Previous subtotal colectomy and enterocolonic anastomosis in the pelvis. There is an anterior abdominal wall surgical patch to the right of the umbilicus. Stomach is distended and fluid-filled. Jejunum and portions of the ileum are approximately 3.5 cm in cross-sectional diameter. There is abnormal perienteric soft tissue density deep to the surgical patch and just to the right of the umbilicus. There is a transition point consistent with mechanical small bowel obstruction due to adhesions. No evidence for volvulus or closed loop obstruction. There is minimal mesenteric fluid. No bowel wall thickening or nonenhancing mural segments. Also distended and fluid filled. Jejunum is dilated to Vascular:Calcified abdominal aorta. Celiac trunk and superior mesenteric artery are normal. There is normal enhancement of the inferior mesenteric artery. There is calcification at the origin of the renal arteries without evidence for stenosis. No abdominal aortic aneurysm. No portal venous gas Lymphatic:No retroperitoneal or mesenteric adenopathy Mesentery, peritoneum: No free intraperitoneal fluid. No mesenteric or retroperitoneal mass. No pneumoperitoneum. Reproductive:Prostate is mildly prominent. Musculoskeletal:No lumbar compression fractures. No lytic or sclerotic lesions. Sacrum and pelvis are negative. Hips are negative. Examination was initially interpreted by [facility] IMPRESSION: 1. Previous subtotal colectomy and enterocolonic anastomosis 2. Recurrent mechanical small bowel obstruction 3. Transition point is just deep to a surgical patch in the anterior abdominal wall. Appearance is consistent with small bowel obstruction due to adhesions. No evidence for closed loop obstruction The exam was performed using radiation dose optimization techniques including, but not limited to, automated exposure control, adjustment of the mA and/or kV according to patient size and use of iterative reconstruction technique. Interpreted and Authenticated by: Steve Watkins 01/09/20
--- NOTE | 2020-01-09 07:27 | Emergency Department Note ---
Abdominal Pain HPI - General Chief Complaint: Abdominal Pain Stated Complaint: abdominal pain Time Seen by Provider: 01/09/20 03:19 Source: patient Mode of arrival: ambulatory Limitations: no limitations - History of Present Illness HPI Narrative: This patient started having some abdominal pain with nausea this morning. He has a long history of recurrent small bowel obstruction and is required 4 surgeries for this in the past. No diarrhea constipation not passing much stool or gas. Abdominal pain is somewhat crampy. Diffuse in nature. - Related Data Home Medications Medication Instructions Recorded Confirmed prednisolone acetate 1 % eye 1 drp OS DAILY 07/25/15 01/09/20 drops,suspension Brimonidine Ophth Drops [Alphagan 1 gtt OS BID 11/14/15 01/09/20 P Ophth Drops] brinzolamide 1 % eye 2 drp OS BID ml 12/24/17 01/09/20 drops,suspension Cetirizine HCl/Pseudoephedrine 1 tab PO ACB 09/15/19 01/09/20 [All Day Allergy-D Tablet] Clobetasol Propionate [Temovate] 1 applic TOPICAL DAILY 09/15/19 01/09/20 Previous Rx's Medication Instructions Recorded desonide 0.05 % topical ointment 1 applic TOPICAL QDAY #60 g 07/09/17 Meclizine [Antivert] 25 mg PO TIDP PRN #20 tab 08/23/19 metformin 500 mg tablet,extended 500 mg PO QHS #90 tab 09/23/19 release 24hr tamsulosin 0.4 mg capsule 0.4 mg PO QHS #90 cap 09/23/19 escitalopram oxalate 20 mg tablet 20 mg PO QDAY #90 tab 09/28/19 fluticasone propionate 50 1 spray INTRANASAL QDAY #9.9 g 10/16/19 mcg/actuation nasal spray,suspension omeprazole 20 mg capsule,delayed 20 mg PO QDAY #90 cap 11/25/19 release fluoride (sodium) 1.1 % dental 1 applic DENTAL BID #113 g 12/08/19 paste buspirone 7.5 mg tablet 7.5 mg PO BID #180 tab 01/04/20 Allergies Allergy/AdvReac Type Severity Reaction Status Date / Time Ezrwffe-Dov-Htj Reductase AdvReac Intermediate Myalgia Verified 12/08/19 08:23 Inhibitor meperidine [From Demerol] AdvReac Mild Hypotension Verified 12/08/19 08:23 morphine AdvReac Mild Hallucinati Verified 12/08/19 08:23 ons Review of Systems All systems ED: reviewed and negative except as stated. 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) Metabolic Syndrome X (Chronic) Neck pain on left side (Chronic) Greater trochanteric bursitis (Chronic) Environmental allergies (Chronic) Right knee pain (Chronic) History of continuous positive airway pressure (CPAP) dependence (Chronic) History of tobacco use (Resolved) Psoriasis (Resolved) Osteoarthrosis multiple sites, 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) Glaucoma (Chronic) Enlarged prostate (Chronic) Elevated LFTs (Chronic) Dizziness (Acute) Diverticulitis of colon (Resolved) Depression (Chronic) Degenerative disc disease (Chronic) Bradycardia (Chronic) Allergy (Chronic) Abdominal pain (Resolved) Abdominal pain (Resolved) Acquired absence of other specified parts of digestive tract (Resolved) Bowel obstruction (Resolved) Dizziness (Resolved) Dysfunction of eustachian tube (Resolved) Episode of confusion (Resolved) Episode of dizziness (Resolved) Incisional hernia (Resolved) Intestinal adhesions [bands] with obstruction (postprocedural) (postinfection) (Resolved) Nasal lesion (Resolved) Obstipation (Resolved) Olecranon bursitis (Resolved) Prostatitis (Resolved) Pruritus (Resolved) Small bowel obstruction due to adhesions (Resolved) Tennis elbow (Resolved) Thoracic back pain (Resolved) Past Surgical History (Last Reviewed 10/28/19 @ 08:18 by Steve Pendleton DO) Colostomy status (Resolved) History of cataract surgery (Resolved) History of cholecystectomy (Resolved) History of colectomy (Resolved) History of colonoscopy (Resolved) History of colostomy (Resolved) History of esophagogastroduodenoscopy (EGD) (Resolved) History of eye surgery (Resolved) History of hernia surgery (Resolved) History of surgery (Resolved) History of surgery (Resolved) History of tonsillectomy (Resolved) History of vasectomy (Resolved) History of surgery (Inactive) Family History (Last Reviewed 10/28/19 @ 08:18 by Steve Pendleton DO) Grandfather Malignant neoplasm of urinary bladder Father of unknown cause Mother of unknown cause Unknown Acute myocardial infarction Medical history: Reports: DM, hypertension, other. Denies: chronic anticoagulation, chronic narcotics, CVA, myocardial infarction Psychiatric history: Reports: no psych history - Social History Smoking status: Never smoker Drug use: Reports: none Physical Exam Limitations: no limitations General appearance: alert Head: atraumatic Eye: Present: normal appearance ENT: Present: normal exam Neck: Present: normal inspection Chest: Present: normal inspection Respiratory: Present: normal lung sounds bilaterally Cardiovascular: Present: regular rate, normal rhythm, normal heart sounds Abdominal: Present: soft, distention, tenderness, hyperactive bowel sounds. Absent: guarding, rebound, rigidity Abdominal tenderness: Present: diffuse, moderate Neurological: Present: alert Psychiatric: Present: normal affect Skin: Present: warm, dry Course Vital Signs Temperature 97.0 F 01/09/20 03:02 Pulse Rate 58 L 01/09/20 03:02 Respiratory Rate 17 01/09/20 03:02 Blood Pressure 156/82 01/09/20 03:02 Pulse Oximetry (%) 98 01/09/20 03:02 Temperature 97.0 F 01/09/20 03:02 Pulse Rate 54 L 01/09/20 06:01 Respiratory Rate 17 01/09/20 03:02 Blood Pressure 128/88 01/09/20 06:01 Pulse Oximetry (%) 95 01/09/20 06:01 Abdominal Pain - MDM Narrative Medical decision making narrative: Patient CT scan was consistent with a partial small bowel obstruction. I discussed this case with Dr. Echeverria the surgeon and he will be admitted to the hospital. - Lab Data Lab results reviewed: Yes I reviewed the patient's lab results. Result diagrams: 01/09/20 03:24 01/09/20 03:26 Lab Results 01/09/20 01/09/20 Range/Units 03:24 03:26 WBC 7.4 (4.50-11.00) K/mcL RBC 5.28 (4.63-6.08) M/mcL Hgb 17.4 (13.7-17.5) g/dL Hct 49.1 (40.1-51.0) % POC Hct 48.0 (41.0-55.0) % MCV 93.0 (80.0-100.0) fL MCH 33.0 (26.0-34.0) pg MCHC 35.4 (31.0-36.0) g/dL RDW 12.2 (11.5-14.5) % Plt Count 185 (140-440) K/mcL MPV 10.0 (7.4-10.4) fL Gran % 72.0 (38.0-78.0) % Lymph % (Auto) 20.2 (15.5-49.0) % [place] % (Auto) 5.8 (1.0-12.0) % Eos % (Auto) 1.6 (0.0-7.0) % Baso % (Auto) 0.4 (0.0-2.0) % Gran # 5.33 (1.80-8.00) K/mcL Lymph # (Auto) 1.50 (1.50-4.80) K/mcL [place] # (Auto) 0.43 (0.10-0.90) K/mcL Eos # (Auto) 0.12 (0.00-0.70) K/mcL Baso # (Auto) 0.03 (0.00-0.30) K/mcL POC Sodium 140 (133-145) mmol/L Sodium 140 (133-145) mmol/L POC Potassium 3.6 (3.3-5.1) mmol/L Potassium 3.7 (3.3-5.1) mmol/L POC Chloride 103 (96-108) mmol/L Chloride 101 (96-108) mmol/L Carbon Dioxide 25 (22-30) mmol/L POC Total CO2 24 (22-30) mmol/L Anion Gap 14.0 (8-16) POC BUN 20 (8-23) mg/dl BUN 19 (8-23) mg/dl Creatinine 0.8 (0.7-1.2) mg/dl POC Creatinine 0.8 (0.7-1.2) mg/dl GFR Calculation 89 Glucose 185 H (70-105) mg/dL POC Glucose 186 H (70-105) mg/dL Calcium 9.3 (8.6-10.4) mg/dl POC WB Ioniz Calcium 1.23 (1.16-1.32) mmol/L Total Bilirubin 1.4 H (0.0-1.0) mg/dL AST 21 (0-37) U/l ALT 23 (0-40) U/l Alkaline Phosphatase 88 (39-117) U/L Total Protein 7.1 (5.9-8.4) gm/dL Albumin 4.2 (3.2-5.2) gm/dL Globulin 2.9 (2.2-3.7) gm/dL Albumin/Globulin Ratio 1.4 (1.0-2.3) - Radiology Data Radiology results reviewed: Yes I reviewed the patient's radiology results. Disposition Pt seen by ERP PM/PA only: No Clinical Impression: Small bowel obstruction, partial Disposition: Xfer As Inpt ([facility]) Condition: Good Referrals: Steve Pendleton DO [Primary Care Provider] - Time of Disposition: 07:26
[2020-01-09] MEDS ORDERED: BENZOCAINE 1 SPRAY BOTTLE TOPICAL ONE (08:27)
[2020-01-09] MEDS ORDERED: PROMETHAZINE 25 MG/ML VIAL IV PRN (09:11)
[2020-01-09] MEDS: BENZOCAINE 1 SPRAY BOTTLE TOPICAL SCH ×4 (10:02→21:15)
[2020-01-09] MEDS: METOCLOPRAMIDE 10 MG/2 ML VIAL IV SCH ×3 (15:19→23:47)
--- NOTE | 2020-01-09 15:44 | General Surg History&Physical ---
History of Present Illness Patient information: Note initiated : 01/09/20 at 3:43 pm Service Date, if different from initiated Date: [] Patient: Steve Cavazos 74 y/o M admitted on 01/09/20 for abdominal pain. Chief Complaint: [] HPI: Mr. Cavazos is a 74 year old M admitted with partial small bowel obstruction. The patient had onset of acute abdominal pain with nausea on the morning of admission. The pain was crampy in nature. He has gone prolonged period of time without flatus or bowel movements and had abdominal distention. He has a history of prior partial small bowel obstructions. He was last admitted here on 15 [address] of the abdomen suggests mid ileal obstruction. He is admitted and will be treated nonoperatively. Review of Systems All systems PM: reviewed and no additional remarkable complaints except as stated (negative except as noted below, and in HPI) - Constitutional headache(s) (muscle contraction headaches) - Musculoskeletal back pain, joint swelling, neck pain - Neurological dizziness, other (prior history of TIAs) Past History Past medical history: Diabetes mellitus type 2. Degenerative disc disease. Hypertension. Chronic obstructive sleep apnea. History of incisional hernia. Depression with anxiety Past surgical history: Cholecystectomy. Sigmoid colectomy with colostomy. Colostomy takedown Past family history: Bladder cancer. Coronary artery disease Past social history: Former smoker. Drinks occasional alcohol Denies drug use Medications and Allergies Home Medications Medication Instructions Recorded Confirmed Type prednisolone acetate 1 % eye 1 drp OS DAILY 07/25/15 01/09/20 History drops,suspension Brimonidine Ophth Drops [Alphagan 1 gtt OS BID 11/14/15 01/09/20 History P Ophth Drops] desonide 0.05 % topical ointment 1 applic TOPICAL QDAY #60 g 07/09/17 01/09/20 Rx brinzolamide 1 % eye 2 drp OS BID ml 12/24/17 01/09/20 History drops,suspension Meclizine [Antivert] 25 mg PO TIDP PRN #20 tab 08/23/19 01/09/20 Rx Cetirizine HCl/Pseudoephedrine 1 tab PO ACB 09/15/19 01/09/20 History [All Day Allergy-D Tablet] Clobetasol Propionate [Temovate] 1 applic TOPICAL DAILY 09/15/19 01/09/20 History metformin 500 mg tablet,extended 500 mg PO QHS #90 tab 09/23/19 01/09/20 Rx release 24hr tamsulosin 0.4 mg capsule 0.4 mg PO QHS #90 cap 09/23/19 01/09/20 Rx escitalopram oxalate 20 mg tablet 20 mg PO QDAY #90 tab 09/28/19 01/09/20 Rx fluticasone propionate 50 1 spray INTRANASAL QDAY #9.9 g 10/16/19 01/09/20 Rx mcg/actuation nasal spray,suspension omeprazole 20 mg capsule,delayed 20 mg PO QDAY #90 cap 11/25/19 01/09/20 Rx release fluoride (sodium) 1.1 % dental 1 applic DENTAL BID #113 g 12/08/19 01/09/20 Rx paste buspirone 7.5 mg tablet 7.5 mg PO BID #180 tab 01/04/20 01/09/20 Rx Allergies Allergy/AdvReac Type Severity Reaction Status Date / Time Dusdaad-[id number] Reductase AdvReac Intermediate Myalgia Verified 12/08/19 08:23 Inhibitor meperidine [From Demerol] AdvReac Mild Hypotension Verified 12/08/19 08:23 morphine AdvReac Mild Hallucinati Verified 12/08/19 08:23 ons Exam Temp Pulse Resp BP Pulse Ox 99.1 F H 62 20 112/66 96 01/09/20 12:00 01/09/20 06:31 01/09/20 12:00 01/09/20 12:00 01/09/20 12:00 - General physical appearance well developed, well nourished, no distress - Eyes PERRL, normal ocular movement - ENT normal pinna, normal nares, normal mucosa, no hearing loss, no congestion - Head Head exam IM: Present: atraumatic, normal inspection, normocephalic - Neck no masses, no bruits, trachea midline, no lymphadenopathy, no venous distension - Cardiovascular Cardiovascular exam IM: Present: normal rate and rhythm - Respiratory normal expansion, normal respiratory effort, clear to auscultation - Abdomen Abdomen: Present: soft, non tender, bowel sounds Hernia: Present: none - Genitourinary Present: normal penis with no external lesions - Integumentary Present: no rash, no growths, no abnormal pigmentation - Neurologic Present: normal coordination, normal sensation - Musculoskeletal Present: normal gait, normal posture - Psychiatric Present: oriented to time, oriented to person, oriented to place, speech is normal, memory intact Assessment and Plan (1) Small bowel obstruction Nasogastric suction. IV hydration. Started on metoclopramide every 6 hours Follow-up abdominal x-rays in the morning. We'll probably do small bowel follow-through in the morning Status: Acute (2) Generalized anxiety disorder with panic attacks We'll use supplemental benzodiazepines as needed Status: Chronic Comment: Much improved with buspirone 7.5 mg twice daily. Continue. Continue Lexapro 20 mg daily Consider Abilify versus psychiatry referral if he obsessive/compulsive symptoms recur. (3) DM type 2 (diabetes mellitus, type 2) We will supplement with sliding scale insulin if needed Status: Chronic Comment: Very well controlled on metformin ER 500 mg daily. Continues to check his blood sugar 3-4 times per week. Follows a diabetic diet. DFE performed today and no abnormalities. Recently had diabetic eye exam, will get records. Qualifiers: Diabetes mellitus director long term care insulin use: without fdc use Diabetes mellitus complication status: without complication Qualified Code(s): E11.9 - Type 2 diabetes mellitus without complications (4) Obstructive sleep apnea Status: Chronic
[2020-01-09] MEDS: HYDROmorphone* 2 MG/ML VIAL IV PRN ×3 (15:53→23:47)
[2020-01-09] MEDS: 0.9 % SODIUM CHLORIDE 1,000 ML IV SCH (21:52)
[2020-01-10] MEDS: BENZOCAINE 1 SPRAY BOTTLE TOPICAL SCH ×7 (01:30→23:45)
[2020-01-10] MEDS: HYDROmorphone* 2 MG/ML VIAL IV PRN ×2 (03:55→07:29)
[2020-01-10] MEDS: METOCLOPRAMIDE 10 MG/2 ML VIAL IV SCH ×4 (05:54→23:44)
[2020-01-10] MEDS: 0.9 % SODIUM CHLORIDE 1,000 ML IV SCH ×4 (05:57→21:39)
[2020-01-10 06:26] LABS: Basophils # (Auto) 0.02 K/mcL (0.00-0.30); Basophils % (Auto) 0.2 % (0.0-2.0); Eosinophils # (Auto) 0.08 K/mcL (0.00-0.70); Hematocrit 43.5 % (40.1-51.0); Hemoglobin 15.2 g/dL (13.7-17.5); Lymphocytes # (Auto) 1.37 K/mcL (1.50-4.80); Mean Corpuscular HGB Conc 34.9 g/dL (31.0-36.0); Mean Platelet Volume 9.3 fL (7.4-10.4); Monocytes # (Auto) 0.55 K/mcL (0.10-0.90); Monocytes % (Auto) 6.8 % (1.0-12.0); Platelet Count 172 K/mcL (140-440); RBC 4.63 M/mcL (4.63-6.08); Red Cell Distribution Width 12.4 % (11.5-14.5); WBC 8.1 K/mcL (4.50-11.00)
[2020-01-10] MEDS: HYDROmorphone* 2 MG/ML VIAL IV SCH (06:50)
[2020-01-10 06:54] LABS: ALT/SGPT 18 U/l (0-40); AST/SGOT 16 U/l (0-37); Albumin 3.8 gm/dL (3.2-5.2); Albumin/Globulin Ratio 1.5 (1.0-2.3); Alkaline Phosphatase 77 U/L (39-117); Bilirubin,Direct 0.3 mg/dL (0.0-0.3); Bilirubin,Total 1.8 mg/dL (0.0-1.0); Blood Urea Nitrogen 15 mg/dl (8-23); Calcium 8.6 mg/dl (8.6-10.4); Carbon Dioxide 26 mmol/L (22-30); Chloride 106 mmol/L (96-108); Globulin 2.5 gm/dL (2.2-3.7); Glomerular Filtration Rate 94; Glucose 114 mg/dL (70-105); Lactate Dehydrogenase 159 U/L (94-250); Phosphorous 2.6 mg/dL (2.7-4.5); Triglycerides 94 mg/dl (<150); Uric Acid 4.8 mg/dL (2.5-8.0)
--- NOTE | 2020-01-10 13:30 | General Surgery Progress Note ---
Subjective Patient reports: feels better, pain is less, flatus, bowel movement, afebrile Narrative: Note initiated : 01/10/20 at 1:28 pm Service Date, if different from initiated Date: [] Patient: Steve Cavazos 74 y/o M admitted on 01/09/20 for abdominal pain. Chief Complaint: [Patient feels much better. Is passing flatus and has had bowel movement 3. He is undergoing small bowel follow-through. His abdominal discomfort is significantly improved. She has much less abdominal distention. White blood count 8.1, hemoglobin 15.2, hematocrit 43.5] Objective Temp Pulse Resp BP Pulse Ox 99.0 F 65 12 156/90 96 01/10/20 11:08 01/10/20 08:00 01/10/20 11:08 01/10/20 11:08 01/10/20 11:08 - Additional Data Intake & Output - Last 24 hours: Intake & Output 01/08/20 01/09/20 01/10/20 01/11/20 05:59 05:59 05:59 05:59 Intake Total 2000 360 Output Total 2650 1000 Balance -650 -640 Weight 175 lb 180 lb 8 oz - General physical appearance well developed, well nourished, no distress - Eyes PERRL, normal ocular movement - ENT normal pinna, normal nares, normal mucosa, no hearing loss, no congestion - Neck no masses, no bruits, trachea midline, no lymphadenopathy, no venous distension - Respiratory normal expansion, normal respiratory effort, clear to auscultation - Cardiovascular Cardiovascular exam: Present: normal rate and rhythm, RRR, +S1, +S2. Absent: JVD, tachycardia - Abdomen tender (minimal midabdominal tenderness), bowel sounds (present), surgical scars (none), masses (none) - Integumentary no rash, no growths, no abnormal pigmentation - Neurologic normal coordination, normal sensation - Musculoskeletal normal gait, normal posture - Psychiatric oriented to time, oriented to person, oriented to place, speech is normal, memory intact - Labs 01/11/20 05:40 01/11/20 05:40 Diabetes panel 01/10/20 Range/Units 05:58 Sodium 142 (133-145) mmol/L Potassium 3.6 (3.3-5.1) mmol/L Chloride 106 (96-108) mmol/L Carbon Dioxide 26 (22-30) mmol/L BUN 15 (8-23) mg/dl Creatinine 0.7 (0.7-1.2) mg/dl Glucose 114 H (70-105) mg/dL Calcium 8.6 (8.6-10.4) mg/dl AST 16 (0-37) U/l ALT 18 (0-40) U/l Alkaline Phosphatase 77 (39-117) U/L Total Protein 6.3 (5.9-8.4) gm/dL Albumin 3.8 (3.2-5.2) gm/dL Triglycerides 94 (<150) mg/dl Calcium panel 01/10/20 Range/Units 05:58 Calcium 8.6 (8.6-10.4) mg/dl Phosphorus 2.6 L (2.7-4.5) mg/dL Albumin 3.8 (3.2-5.2) gm/dL Pituitary panel 01/10/20 Range/Units 05:58 Sodium 142 (133-145) mmol/L Potassium 3.6 (3.3-5.1) mmol/L Chloride 106 (96-108) mmol/L Carbon Dioxide 26 (22-30) mmol/L BUN 15 (8-23) mg/dl Creatinine 0.7 (0.7-1.2) mg/dl Glucose 114 H (70-105) mg/dL Calcium 8.6 (8.6-10.4) mg/dl Adrenal panel 01/10/20 Range/Units 05:58 Sodium 142 (133-145) mmol/L Potassium 3.6 (3.3-5.1) mmol/L Chloride 106 (96-108) mmol/L Carbon Dioxide 26 (22-30) mmol/L BUN 15 (8-23) mg/dl Creatinine 0.7 (0.7-1.2) mg/dl Glucose 114 H (70-105) mg/dL Calcium 8.6 (8.6-10.4) mg/dl Total Bilirubin 1.8 H (0.0-1.0) mg/dL AST 16 (0-37) U/l ALT 18 (0-40) U/l Alkaline Phosphatase 77 (39-117) U/L Total Protein 6.3 (5.9-8.4) gm/dL Albumin 3.8 (3.2-5.2) gm/dL Assessment and Plan (1) Small bowel obstruction, partial Status: Acute Assessment and plan: Discontinue nasogastric tube. Follow-up abdominal x-rays in the morning Current Visit: Yes (2) DM type 2 (diabetes mellitus, type 2) Problem details: Very well controlled on metformin ER 500 mg daily. Continues to check his blood sugar 3-4 times per week. Follows a diabetic diet. DFE performed today and no abnormalities. Recently had diabetic eye exam, will get records. Status: Chronic Current Visit: No (3) Obstructive sleep apnea Status: Chronic Assessment and plan: Oxygenation has been stable Current Visit: No - Time Spent With Patient Total time spent is greater than 50% in coordination of care (as documented) at patient's floor/unit and/or counseling patient:
[2020-01-10] MEDS ORDERED: DIATRIZOATE MEGLU/DIATRIZO SOD 30 ML BOTTLE PO ONE (13:44)
--- NOTE | 2020-01-10 13:54 | XRay Report ---
INDICATION: Follow-up with small bowel obstruction TECHNIQUE: Small bowel study performed with 225 mL oral [facility] COMPARISON: CT scan dated 01/09/2020 FINDINGS: Contrast passes through the small bowel and into the rectum by 2 hours postingestion. Small bowel is not dilated at this time. Appearance is consistent with resolution of mechanical obstruction as demonstrated on previous CT scan. IMPRESSION: 1. Normal-appearing small bowel 2. No present evidence for mechanical small bowel obstruction Interpreted and Authenticated by: Steve Watkins 01/10/20
[2020-01-11] MEDS: 0.9 % SODIUM CHLORIDE 1,000 ML IV SCH ×3 (01:58→12:20)
[2020-01-11] MEDS: BENZOCAINE 1 SPRAY BOTTLE TOPICAL SCH ×3 (03:33→12:21)
[2020-01-11] MEDS: METOCLOPRAMIDE 10 MG/2 ML VIAL IV SCH ×2 (05:40→11:57)
[2020-01-11 06:22] LABS: Basophils # (Auto) 0.01 K/mcL (0.00-0.30); Basophils % (Auto) 0.1 % (0.0-2.0); Eosinophils % (Auto) 1.5 % (0.0-7.0); Granulocytes % (Auto) 70.4 % (38.0-78.0); Hemoglobin 14.6 g/dL (13.7-17.5); Lymphocytes # (Auto) 1.25 K/mcL (1.50-4.80); Lymphocytes % (Auto) 18.5 % (15.5-49.0); Mean Cell Volume 94.3 fL (80.0-100.0); Mean Corpuscular HGB Conc 35.6 g/dL (31.0-36.0); Mean Platelet Volume 9.2 fL (7.4-10.4); Monocytes # (Auto) 0.64 K/mcL (0.10-0.90); Monocytes % (Auto) 9.5 % (1.0-12.0); Platelet Count 160 K/mcL (140-440); RBC 4.35 M/mcL (4.63-6.08); Red Cell Distribution Width 12.5 % (11.5-14.5); WBC 6.8 K/mcL (4.50-11.00)
[2020-01-11 06:41] LABS: ALT/SGPT 16 U/l (0-40); AST/SGOT 14 U/l (0-37); Albumin 3.6 gm/dL (3.2-5.2); Albumin/Globulin Ratio 1.4 (1.0-2.3); Alkaline Phosphatase 75 U/L (39-117); Bilirubin,Direct 0.3 mg/dL (0.0-0.3); Blood Urea Nitrogen 12 mg/dl (8-23); Calcium 8.3 mg/dl (8.6-10.4); Carbon Dioxide 23 mmol/L (22-30); Chloride 106 mmol/L (96-108); Globulin 2.5 gm/dL (2.2-3.7); Glomerular Filtration Rate 94; Glucose 100 mg/dL (70-105); Lactate Dehydrogenase 141 U/L (94-250); Triglycerides 77 mg/dl (<150); Uric Acid 4.1 mg/dL (2.5-8.0)
[2020-01-11 06:42] LABS: Phosphorous 2.3 mg/dL (2.7-4.5)
[2020-01-11] MEDS ORDERED: BRIMONIDINE OS SCH (09:00)
[2020-01-11] MEDS ORDERED: prednisoLONE 1% OPHTH DROPS 1ML BOTTLE OS SCH (09:00)
[2020-01-11] MEDS ORDERED: BRINZOLAMIDE EYE OS SCH (09:00)
--- NOTE | 2020-01-11 15:21 | Discharge Summary ---
Providers - Providers Patient information: Note initiated : 01/11/20 at 3:19 pm Service Date, if different from initiated Date: [] Patient: Steve Cavazos 74 y/o M admitted on 01/09/20 for abdominal pain. 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 He had acute onset of abdominal pain with nausea without flatus or bowel movement on the morning of admission. It progressed and he was seen in the emergency room. X-rays suggested dilated small bowel. CT suggested mechanical small bowel obstruction. He was started on nasogastric suction and monitored. Small bowel follow-through was done which showed no evidence of obstruction. He had multiple bowel movements. Nasogastric tube was discontinued and he was given full liquid diet without difficulty. He is clinically stable and is ready for discharge. Discharge diagnosis: partial small bowel obstruction Secondary discharge diagnosis: Diabetes mellitus type 2. Degenerative disc disease. Hypertension. Chronic obstructive sleep apnea. Depression with anxiety Reason for admission: abdominal pain with distention and nausea Procedures: None Pertinent studies/significant findings: CT of abdomen and pelvis with IV contrast. Small bowel follow-through Complications: None Exam Temp Pulse Resp BP Pulse Ox 97.3 F 62 18 132/76 97 01/11/20 12:00 01/11/20 12:00 01/11/20 12:00 01/11/20 12:00 01/11/20 12:00 - General physical appearance well developed, well nourished, no distress - Eyes PERRL, normal ocular movement - ENT normal pinna, normal nares, normal mucosa, no hearing loss, no congestion - Head Head exam IM: Present: atraumatic, normocephalic - Neck no masses, no bruits, trachea midline, no lymphadenopathy, no venous distension - Cardiovascular Cardiovascular exam IM: Present: normal rate and rhythm - Respiratory normal expansion, normal respiratory effort, clear to percussion, clear to auscultation - Abdomen Abdomen: Present: soft, non tender, bowel sounds Hernia: Present: none - Genitourinary Present: normal penis with no external lesions - Integumentary Present: no rash, no growths, no abnormal pigmentation - Neurologic Present: normal coordination, normal sensation - Musculoskeletal Present: normal gait, normal posture - Psychiatric Present: oriented to time, oriented to person, oriented to place, speech is normal, memory intact Discharge Plan - Patient/Caregiver Discharge Instructions Activity: increase activity as tolerated Diet: Low Fiber, Consistent Carbohydrate - Follow up Plan Follow up with: Steve Pendleton DO [Primary Care Provider] - Disposition: Home, Self-Care Prognosis: Good Rehab Potential: Good I certify that the patient requires SNF services.: No Overall status at discharge: patient is back to baseline Pending Studies Resuscitation Status Full Code Diet Full Liquid Diet Start Sun Jan 09 1707 Benzocaine (Cetacaine) 1 spray TOPICAL Q4H COUNT INCLUDES THE [facility] Last Admin: 01/11/20 12:21 Dose: Not Given Documented by: Admin: 01/11/20 08:38 Dose: Not Given Documented by: Admin: 01/11/20 03:33 Dose: Not Given Documented by: Admin: 01/10/20 23:45 Dose: Not Given Documented by: Admin: 01/10/20 20:59 Dose: Not Given Documented by: Admin: 01/10/20 15:47 Dose: Not Given Documented by: Admin: 01/10/20 15:22 Dose: Not Given Documented by: Admin: 01/10/20 08:07 Dose: Not Given Documented by: Admin: 01/10/20 05:57 Dose: 1 spray Documented by: Admin: 01/10/20 01:30 Dose: 1 spray Documented by: Admin: 01/09/20 21:15 Dose: 1 spray Documented by: Admin: 01/09/20 17:52 Dose: 1 spray Documented by: Admin: 01/09/20 15:20 Dose: 1 spray Documented by: Admin: 01/09/20 10:02 Dose: 1 spray Documented by: PATI Hydromorphone HCl (Dilaudid) 0.5 mg IV Q2HP PRN; Protocol PRN Reason: Per Pain Protocol Last Admin: 01/10/20 07:29 Dose: 0.5 mg Documented by: Admin: 01/10/20 03:55 Dose: 0.5 mg Documented by: Admin: 01/09/20 23:47 Dose: 0.5 mg Documented by: Admin: 01/09/20 21:26 Dose: 0.5 mg Documented by: Admin: 01/09/20 15:53 Dose: 0.5 mg Documented by: PATI Sodium Chloride (Sodium Chloride 0.9%) 1,000 mls @ 125 mls/hr IV .Q8H COUNT INCLUDES THE [facility] Last Admin: 01/11/20 12:20 Dose: 125 mls/hr Documented by: Infusion: 01/11/20 12:11 Dose: 0 mls/hr Documented by: Admin: 01/11/20 05:40 Dose: Not Given Documented by: Admin: 01/11/20 01:58 Dose: 125 mls/hr Documented by: Infusion: 01/11/20 01:58 Dose: 125 mls/hr Documented by: Admin: 01/10/20 21:39 Dose: Not Given Documented by: Admin: 01/10/20 18:03 Dose: 125 mls/hr Documented by: Admin: 01/10/20 15:22 Dose: Not Given Documented by: Infusion: 01/10/20 13:57 Dose: 0 mls/hr Documented by: Admin: 01/10/20 05:57 Dose: 125 mls/hr Documented by: Infusion: 01/10/20 05:52 Dose: 125 mls/hr Documented by: Admin: 01/09/20 21:52 Dose: 125 mls/hr Documented by: AMMON Metoclopramide HCl (Reglan) 10 mg IV Q6 COUNT INCLUDES THE [facility] Last Admin: 01/11/20 11:57 Dose: Not Given Documented by: Admin: 01/11/20 05:40 Dose: Not Given Documented by: Admin: 01/10/20 23:44 Dose: 10 mg Documented by: Admin: 01/10/20 18:03 Dose: 10 mg Documented by: Admin: 01/10/20 17:28 Dose: Not Given Documented by: Admin: 01/10/20 05:54 Dose: 10 mg Documented by: Admin: 01/09/20 23:47 Dose: 10 mg Documented by: Admin: 01/09/20 17:52 Dose: 10 mg Documented by: Admin: 01/09/20 15:19 Dose: 10 mg Documented by: PATI Brimonidine Ophth Drops [Alphagan P] Ophth Drops 1 dose OS BID COUNT INCLUDES THE [facility] Last Admin: 01/11/20 11:56 Dose: 1 dose Documented by: [email or web address] Brinzolamide [Azopt] (Eye Drops) 2 dose OS BID COUNT INCLUDES THE [facility] Last Admin: 01/11/20 11:55 Dose: 2 dose Documented by: [email or web address] Prednisolone Acetate (Pred Forte Ophth Drops) 1 gtt OS DAILY COUNT INCLUDES THE [facility] Last Admin: 01/11/20 11:55 Dose: 1 gtt Documented by: [email or web address] Shift Summary 01/11/20 02:33 Shift Summary by Miranda Lewis Addendum entered by Miranda Lewis R.N. 01/11/20 03:49: Patient up at [facility]. Original Note: AOX4. NGT discontinued yesterday and started on a full liquid diet which he is tolerating well. Denies any pain/nausea/vomitting. Patient having several soft BMs. Patient refusing the cetacaine since NGT removed stating he no longer needs it. Active bowel sounds. IV left forearm with NS @ 125. Patient receiving scheduled Reglan. Initialized on 01/11/20 02:33 - END OF NOTE
[2020-01-11] MEDS ORDERED: busPIRone 5 MG TABLET PO SCH (21:00)
[2020-01-12] MEDS ORDERED: ESCITALOPRAM 20 MG TABLET PO SCH (09:00)
== END 2020-01-11 16:35 | disposition home or self-care (01) | DRG 390 ==
LOC: ED 03:01 → MEDSUR 07:51
PROVIDERS: ADMIT Family Medicine Adult Medicine; ATTEND Family Medicine Adult Medicine

== ENCOUNTER 2020-06-10 20:34 | Inpatient (IN) ==
[2020-06-10] MEDS ORDERED: IOPAMIDOL 100 ML BOTTLE IV ONE (20:35)
[2020-06-10] MEDS ORDERED: 0.9 % SODIUM CHLORIDE 1,000 ML IV ONE (20:56)
--- NOTE | 2020-06-10 21:07 | Emergency Department Note ---
Abdominal Pain HPI General Chief Complaint: Abdominal Pain Stated Complaint: abd pain & nausea Time Seen by Provider: 06/10/20 20:38 Source: patient Mode of arrival: ambulatory Limitations: no limitations History of Present Illness HPI Narrative: Narrative: This pleasant 75-year-old gentleman comes in because of increasing rather severe abdominal pain. Onset about an hour prior to coming here may be around 7 or 730. He had eaten dinner some around 615 or 6:30 PM and he could feel the stomach tensing up. He has not had any flatus. He has had a little bit of nausea. No vomiting. There is been no change in diet. He and his try to eat fairly healthy with lots of fruits and veggies. He did have a couple bowel movements today without difficulties or pain and it is common for him to have 2-3 bowel movements per day. He reports that he only has 25% of intestines due to diverticulitis and small bowel obstructions etc. His surgery for diverticulitis and partial colectomy was over 15 years ago here at this hospital. There is no specific or known trigger for his multiple episodes of small bowel obstructions. The last time was 3 to 4 months ago and he was actually admitted overnight at that time. He has been admitted a couple of times over the years and been in the emergency room without being admitted and additional maybe 3 times. No associated fevers chills or sweats. Pain in the abdomen is all the way across. There is no vomiting. No diarrhea currently but has occasionally off and on or semi-formed stools. No constipation or hematochezia. Related Data Home Medications Medication Instructions Recorded Confirmed prednisolone acetate 1 % eye 1 drp OS DAILY 07/25/15 06/11/20 drops,suspension brimonidine 1 gtt OS BID 11/14/15 06/11/20 brinzolamide 1 % eye 2 drp OS BID ml 12/24/17 06/11/20 drops,suspension cetirizine-pseudoephedrine 1 tab PO ACB 09/15/19 06/11/20 clobetasol 1 applic TOPICAL DAILY 09/15/19 06/11/20 polyethylene glycol 3350 17 17 g PO QDAY PRN 01/20/20 06/11/20 gram/dose oral powder Previous Rx's Medication Instructions Recorded desonide 0.05 % topical ointment 1 applic TOPICAL QDAY #60 g 07/09/17 meclizine 25 mg PO TIDP PRN #20 tab 08/23/19 metformin 500 mg tablet,extended 500 mg PO QHS #90 tab 09/23/19 release 24hr tamsulosin 0.4 mg capsule 0.4 mg PO QHS #90 cap 09/23/19 escitalopram oxalate 20 mg tablet 20 mg PO QDAY #90 tab 09/28/19 fluticasone propionate 50 1 spray INTRANASAL QDAY #9.9 g 10/16/19 mcg/actuation nasal spray,suspension fluoride (sodium) 1.1 % dental 1 applic DENTAL BID #113 g 12/08/19 paste buspirone 7.5 mg tablet 7.5 mg PO BID #180 tab 01/04/20 omeprazole 20 mg capsule,delayed 20 mg PO QDAY #90 cap 02/25/20 release Allergies Allergy/AdvReac Type Severity Reaction Status Date / Time [id number] Reductase AdvReac Intermediate Myalgia Verified 04/27/20 10:02 Inhibitor meperidine [From Demerol] AdvReac Mild Hypotension Verified 04/27/20 10:02 morphine AdvReac Mild Hallucinati Verified 04/27/20 10:02 ons Review of Systems ROS ROS Narrative: Narrative: Some phlegm from postnasal drainage that is chronic. Some joint arthritis and shoulder discomforts. Has had multiple headaches for several months now. It is pressure-like. It has worsened of some late. He now has it most days. Tylenol has not been helpful. He has avoided NSAIDs due to his stomach issues. Has some chronic anxiety and depression for which he takes Lexapro. 12 system Review of Systems negative except as mentioned above. Was dropped off here by his who is familiar with his multiple episodes in the past. [facility] Narrative Patient History Narrative: Narrative: DENIES: Renal disease, [place], CVA, TIA. Medical/Surgical/Family History All Active Problems (Updated 06/11/20 @ 09:54 by Sujit March DO) Small bowel obstruction due to adhesions (Acute) Tendinopathy of right rotator cuff (Chronic) Acute vestibular neuronitis (Acute) Small bowel obstruction (Acute) Small bowel obstruction, partial (Acute) Small bowel obstruction, partial (Chronic) Generalized anxiety disorder with panic attacks (Chronic) Sinusitis, acute (Acute) Myalgia due to HMG CoA reductase inhibitor (Acute) Tension headache (Chronic) Abdominal pain (Acute) Small bowel obstruction, partial (Acute) Allergic rhinitis (Acute) DM type 2 (diabetes mellitus, type 2) (Chronic) Dysmetabolic syndrome X (Chronic) Obstructive sleep apnea (Chronic) Hyperlipidemia (Chronic) Patellofemoral syndrome (Chronic) Diverticula, colon (Chronic) senior living (current) use of oral hypoglycemic drugs (Chronic) senior living (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) Metabolic Syndrome X (Chronic) Neck pain on left side (Chronic) Greater trochanteric bursitis (Chronic) Environmental allergies (Chronic) Right knee pain (Chronic) History of continuous positive airway pressure (CPAP) dependence (Chronic) Osteoarthrosis multiple sites, 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) Glaucoma (Chronic) Enlarged prostate (Chronic) Elevated LFTs (Chronic) Dizziness (Acute) Depression (Chronic) Degenerative disc disease (Chronic) Bradycardia (Chronic) Allergy (Chronic) Medical History Abdominal pain (Resolved) Abdominal pain (Resolved) Acquired absence of other specified parts of digestive tract (Resolved) Allergy (Chronic) Bowel obstruction (Resolved) 08/19/2013; Small bowel Bradycardia (Chronic) H/O Degenerative disc disease (Chronic) Depression (Chronic) Continue Lexapro 20 mg daily. We will augment treatment for anxiety symptoms with BuSpar, as above. Diverticula, colon (Chronic) Diverticulitis of colon (Resolved) Dizziness (Acute) EKG today CBC, CMP, TSH 48-hour Holter monitor We will likely get him back in with Dr. Damian as soon as we can, but will wait on the Holter monitor first. Dizziness (Resolved) DM type 2 (diabetes mellitus, type 2) (Chronic) Well controlled on metformin ER 500 mg daily. Follows a diabetic diet. Diabetic eye exam overdue, but scheduled for May. Dysfunction of eustachian tube (Resolved) left greater than right Dysmetabolic syndrome X (Chronic) Metabolic Syndrome (dysmetabolic synd x) Elevated LFTs (Chronic) Mild. Remote. Hepatitis panel done 07/21/12 was normal Enlarged prostate (Chronic) Environmental allergies (Chronic) Episode of confusion (Resolved) 2 self-limiting episodes past 2 weeks Episode of dizziness (Resolved) No episodes of dizziness since he saw Dr. Damian Generalized anxiety disorder with panic attacks (Chronic) Much improved with buspirone 7.5 mg twice daily. Continue. Continue Lexapro 20 mg daily Consider Abilify versus psychiatry referral if he obsessive/compulsive symptoms recur. 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 Started pravastatin for a few weeks recently, but stopped about 5 days ago due to myalgia. Stay off pravastatin, and likely should not try another statin ever again. Check CPK and renal panel. Nasal lesion (Resolved) Left sided nasal lesion, skin. 05/11/2014 Neck pain on left side (Chronic) Likely muscular in origin Stretching and range of motion exercises recommended. Obstipation (Resolved) Obstructive sleep apnea (Chronic) Olecranon bursitis (Resolved) Osteoarthrosis multiple sites, 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) bilateral hips. Neck Patellofemoral syndrome (Chronic) Personal history of nicotine dependence (Resolved) Stop smoking over 40 years ago. Prostatitis (Resolved) Pruritus (Resolved) recurring Psoriasis (Resolved) Right knee pain (Chronic) suspect patellofemoral syndrome. Small bowel obstruction due to adhesions (Resolved) resolved at present. Small bowel obstruction, partial (Chronic) Patient has frequent partial SBO's Recent abdominal pain and bloating but benign exam today. Still having bowel movements. Advised patient to continue MiraLAX daily to help prevent frequent recurrence Go to ER if abdominal pain becomes severe or no longer having bowel movements Tennis elbow (Resolved) Tension headache (Chronic) Much improved. Thoracic back pain (Resolved) Right posterior lower thoracic pain; 03/26/2014 TIA (transient ischemic attack) (Resolved) Remote Surgical History Colostomy status (Resolved) History of cataract surgery (Resolved) Left. Right 05/30 History of cholecystectomy (Resolved) 09/05/12 History of colectomy (Resolved) 01/25/2013; Sigmoid colectomy for diverticular disease with subsequent colostomy and takedown History of colonoscopy (Resolved) 09/21/2013 normal post sigmoid colectomy surgery History of colostomy (Resolved) 04/02/2003 History of esophagogastroduodenoscopy (EGD) (Resolved) 03/13/16-EGJ inflammmation History of eye surgery (Resolved) Laser trabeuloplasty. 07/28/12 History of hernia surgery (Resolved) 2009; abdominal hernia repair History of surgery (Resolved) 06/16/04. Dilation of Anastomosis. Multiple History of surgery (Resolved) 06/14/03 - Stoma revision History of surgery (Inactive) 02/22/04 colostomy takedown and reanastomosis. History of tonsillectomy (Resolved) 1954 History of vasectomy (Resolved) Family History Grandfather Malignant neoplasm of urinary bladder Paternal Father , at 94 of unknown cause Mother , in late 80s of unknown cause Unknown Acute myocardial infarction FH+ for early CAD Social History Smoking Status: Former smoker (Remotely) Alcohol Intake Frequency: holiday/special occasion only Substance Use: does not use Exam Narrative Narrative: Narrative: General Limitations: no limitations General appearance: Present alert, in no apparent distress and nontoxic Head Head: Present atraumatic and normocephalic Eye Eye: Present normal appearance, PERRL and EOMI ENT ENT: Present normal oropharynx and mucous membranes dry Neck Neck: Present trachea midline; Absent lymphadenopathy and thyromegaly Chest Chest: Present symmetric chest wall rise Respiratory Respiratory: Present normal lung sounds bilaterally; Absent respiratory distress, rales/crackles, wheezes, stridor, accessory muscle use and prolonged expiratory phase Cardiovascular Cardiovascular: Present regular rate and normal rhythm; Absent systolic murmur and diastolic murmur Adbominal Abdominal: Present soft, distention, tenderness (Moderate to severe and in multiple quadrants and areas.), rebound and other (Moderately tympanitic in the lower half.); Absent guarding, rigidity, organomegaly and mass Extremities Extremities: Absent pedal edema, pretibial edema, calf tenderness and cyanosis Back Back: Absent CVA tenderness (R), CVA tenderness (L) and spinous process tenderness Neurological Neurological: Present alert and oriented X3 Psychiatric Psychiatric: Present normal affect, polite and pleasant; Absent depressed, agitated, anxious and poor eye contact Skin Skin: Present warm (WNL) and dry; Absent cyanosis and pallor Course Vital Signs Vital signs: Vital Signs Temperature 96.8 F L 06/10/20 20:35 Pulse Rate 53 L 06/10/20 20:35 Respiratory Rate 19 06/10/20 20:35 Blood Pressure 159/83 06/10/20 20:35 Pulse Oximetry (%) 99 06/10/20 20:35 Temperature 98.4 F 06/11/20 07:16 Pulse Rate 63 06/11/20 07:16 Respiratory Rate 14 06/11/20 07:16 Blood Pressure 126/77 06/11/20 07:16 Pulse Oximetry (%) 95 06/11/20 07:16 MDM MDM Narrative Medical decision making narrative: Narrative: 71-year-old pleasant gentleman with a history of small bowel obstructions times multiple in the past presenting with sudden onset increasing bloating, pain and similar to previous pains. Will do labs and CT to get to the answer quickly as to his particular cause and with other risk factors and concerns. CT demonstrates small bowel obstruction in the jejunum with a transition point. Labs as below without a white count. Will speak with general surgeon 10:59 PM - spoke with Dr. Orellana, who agrees that patient needs to be admitted. He is in favor of a nasogastric tube to low intermittent suction which I did order as well as transition orders for pain, nausea, fluids at 75/h of normal saline etc. Lab Data Result diagrams: 06/10/20 20:44 06/10/20 20:44 Labs: Lab Results 06/10/20 06/10/20 06/10/20 Range/Units 20:44 20:44 21:05 WBC 6.5 (4.50-11.00) K/mcL RBC 5.02 (4.63-6.08) M/mcL Hgb 16.6 (13.7-17.5) g/dL Hct 47.1 (40.1-51.0) % MCV 93.8 (80.0-100.0) fL MCH 33.1 (26.0-34.0) pg MCHC 35.2 (31.0-36.0) g/dL RDW 12.0 (11.5-14.5) % Plt Count 204 (140-440) K/mcL MPV 9.7 (7.4-10.4) fL Gran % 55.0 (38.0-78.0) % Lymph % (Auto) 32.6 (15.5-49.0) % [place] % (Auto) 8.5 (1.0-12.0) % Eos % (Auto) 3.4 (0.0-7.0) % Baso % (Auto) 0.5 (0.0-2.0) % Gran # 3.56 (1.80-8.00) K/mcL Lymph # (Auto) 2.11 (1.50-4.80) K/mcL [place] # (Auto) 0.55 (0.10-0.90) K/mcL Eos # (Auto) 0.22 (0.00-0.70) K/mcL Baso # (Auto) 0.03 (0.00-0.30) K/mcL VBG Lactic Acid (0.5-2.0) mmol/L Sodium 139 (133-145) mmol/L Potassium 3.8 (3.3-5.1) mmol/L Chloride 100 (96-108) mmol/L Carbon Dioxide 28 (22-30) mmol/L Anion Gap 11.0 (8-16) BUN 19 (8-23) mg/dl Creatinine 0.9 (0.7-1.2) mg/dl POC Creatinine 0.8 (0.7-1.2) mg/dl GFR Calculation 84 Glucose 131 H (70-105) mg/dL Calcium 10.0 (8.6-10.4) mg/dl Total Bilirubin 0.7 (0.0-1.0) mg/dL AST 22 (0-37) U/l ALT 24 (0-40) U/l Alkaline Phosphatase 89 (39-117) U/L Total Protein 7.3 (5.9-8.4) gm/dL Albumin 4.3 (3.2-5.2) gm/dL Globulin 3.0 (2.2-3.7) gm/dL Albumin/Globulin Ratio 1.4 (1.0-2.3) Lipase 25 (7-60) U/L 06/10/20 Range/Units 21:05 WBC (4.50-11.00) K/mcL RBC (4.63-6.08) M/mcL Hgb (13.7-17.5) g/dL Hct (40.1-51.0) % MCV (80.0-100.0) fL MCH (26.0-34.0) pg MCHC (31.0-36.0) g/dL RDW (11.5-14.5) % Plt Count (140-440) K/mcL MPV (7.4-10.4) fL Gran % (38.0-78.0) % Lymph % (Auto) (15.5-49.0) % [place] % (Auto) (1.0-12.0) % Eos % (Auto) (0.0-7.0) % Baso % (Auto) (0.0-2.0) % Gran # (1.80-8.00) K/mcL Lymph # (Auto) (1.50-4.80) K/mcL [place] # (Auto) (0.10-0.90) K/mcL Eos # (Auto) (0.00-0.70) K/mcL Baso # (Auto) (0.00-0.30) K/mcL VBG Lactic Acid 1.2 (0.5-2.0) mmol/L Sodium (133-145) mmol/L Potassium (3.3-5.1) mmol/L Chloride (96-108) mmol/L Carbon Dioxide (22-30) mmol/L Anion Gap (8-16) BUN (8-23) mg/dl Creatinine (0.7-1.2) mg/dl POC Creatinine (0.7-1.2) mg/dl GFR Calculation Glucose (70-105) mg/dL Calcium (8.6-10.4) mg/dl Total Bilirubin (0.0-1.0) mg/dL AST (0-37) U/l ALT (0-40) U/l Alkaline Phosphatase (39-117) U/L Total Protein (5.9-8.4) gm/dL Albumin (3.2-5.2) gm/dL Globulin (2.2-3.7) gm/dL Albumin/Globulin Ratio (1.0-2.3) Lipase (7-60) U/L Discharge Plan Patient/Caregiver Discharge Instructions Pt seen by PILE OPERATOR/PA only: No Clinical Impression: Small bowel obstruction due to adhesions Patient Disposition: Xfer As Inpt ([facility]) Discharge Date/Time: 06/10/20 23:56
[2020-06-10 21:16] LABS: POC Creatinine 0.8 mg/dl (0.7-1.2)
[2020-06-10 21:40] LABS: Basophils # (Auto) 0.03 K/mcL (0.00-0.30); Basophils % (Auto) 0.5 % (0.0-2.0); Eosinophils # (Auto) 0.22 K/mcL (0.00-0.70); Eosinophils % (Auto) 3.4 % (0.0-7.0); Hematocrit 47.1 % (40.1-51.0); Hemoglobin 16.6 g/dL (13.7-17.5); Lymphocytes # (Auto) 2.11 K/mcL (1.50-4.80); Lymphocytes % (Auto) 32.6 % (15.5-49.0); Mean Cell Volume 93.8 fL (80.0-100.0); Mean Corpuscular HGB Conc 35.2 g/dL (31.0-36.0); Mean Platelet Volume 9.7 fL (7.4-10.4); Monocytes # (Auto) 0.55 K/mcL (0.10-0.90); Monocytes % (Auto) 8.5 % (1.0-12.0); Platelet Count 204 K/mcL (140-440); RBC 5.02 M/mcL (4.63-6.08); WBC 6.5 K/mcL (4.50-11.00)
[2020-06-10] MEDS ORDERED: ONDANSETRON 4 MG/2 ML VIAL IV ONE (21:54)
[2020-06-10 21:59] LABS: ALT/SGPT 24 U/l (0-40); AST/SGOT 22 U/l (0-37); Albumin 4.3 gm/dL (3.2-5.2); Albumin/Globulin Ratio 1.4 (1.0-2.3); Alkaline Phosphatase 89 U/L (39-117); Bilirubin,Total 0.7 mg/dL (0.0-1.0); Blood Urea Nitrogen 19 mg/dl (8-23); Carbon Dioxide 28 mmol/L (22-30); Chloride 100 mmol/L (96-108); Glomerular Filtration Rate 84; Glucose 131 mg/dL (70-105)
[2020-06-10] MEDS: HYDROmorphone 0.5 MG/0.5 ML SYRINGE IV PRN ×2 (22:06→23:32)
[2020-06-10] MEDS ORDERED: HYDROmorphone 0.5 MG/0.5 ML SYRINGE IV PRN (23:19)
[2020-06-10] MEDS ORDERED: ONDANSETRON 4 MG/2 ML VIAL IV PRN (23:19)
[2020-06-10] MEDS ORDERED: NALOXONE HCL 0.4 MG/ML VIAL IV PRN (23:19)
[2020-06-11] MEDS: 0.9 % SODIUM CHLORIDE 1,000 ML IV SCH ×2 (00:14→13:00)
--- NOTE | 2020-06-11 04:17 | XRay Report ---
CLINICAL INFORMATION: NG placement COMPARISON: None. FINDINGS: NG tube overlies the gastric body. Stool gas pattern is normal.No free air, soft tissue mass or organomegaly. Moderate contrast from recent abdomen CT is present in the urinary bladder. It is unremarkable. IMPRESSION: NG tube overlies the gastric body. No acute disease Interpreted and Authenticated by: Steve Elias 06/11/20
--- NOTE | 2020-06-11 05:09 | Cat Scan Report ---
CLINICAL INFORMATION: Diffuse abdominal pain. COMPARISON: 01/09/2020 TECHNIQUE: Following enteric contrast, 80 cc of Isovue-370 were injected intravenously, and 60 seconds later, 0.625 mm helical slices were obtained from the mid heart through the subtrochanteric regions. Following reconstruction, 2.5 mm sagittal, coronal and axial reformatted images were processed and reviewed at bone, lung and soft tissue windows. Five minutes later, 0.625 mm helical slices were obtained from the mid heart through the kidneys and viewed at soft tissue windows.The exam was performed using radiation dose optimization techniques including, but not limited to, automated exposure control, adjustment of the mA and/or kV according to patient size and use of iterative reconstruction technique. FINDINGS: Lung bases show no abnormality - no effusion. 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 Abdominal images show minimal fatty change within the liver with a 6 mm simple cyst in the subdiaphragmatic left hepatic lobe. Gallbladder is surgically absent. Common bile duct is mildly dilated 8 mm due to post cholecystectomy state. The pancreas, both adrenal glands are normal in size, configuration without focal lesion. Scattered scarring in the right kidney and small renal cysts seen as before. No new renal abnormality. The abdominal aorta is normal diameter with moderate fibrofatty calcific plaque. Aortic branches contain plaque, but no evidence of stenosis. There is no free air, free fluid or adenopathy Pelvic images show prostate, seminal vesicles and urinary bladder to be normal. The small bowel has been partially resected and there are also subtotal colectomy changes: The ascending, transverse and descending colon been resected. The small bowel is anastomosed to the proximal sigmoid colon in the false pelvic region. There are multiple loops of moderately dilated small bowel in the left mid abdomen with a transition point in the anterior left mid abdominal cavity near the peritoneal surface on axial image 91, sagittal image 119 and coronal image 23. There appear to be adhesions or stricture in this region. The distal small bowel is markedly decompressed. Findings are compatible with high-grade partial small bowel obstruction. There is a normal amount of stool within the rectosigmoid region.. Bone windows show no osseous abnormality. IMPRESSION: 1. Partial small bowel resection and subtotal colectomy. Specifically, the ascending, transverse and descending colon have been resected and the small bowel is anastomosed to the proximal sigmoid colon. 2. High-grade partial small bowel obstruction in the mid jejunum due to adhesion or stricture. 3. 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 4. Right renal scarring as previously seen Interpreted and Authenticated by: Steve Elias 06/11/20
[2020-06-11] MEDS ORDERED: SODIUM CHLORIDE 0.9% IV ONE (08:20)
[2020-06-11] MEDS ORDERED: [UNRECOGNIZED DRUG - OTHER] IV ONE (08:20)
[2020-06-11] MEDS ORDERED: MECLIZINE 25 MG TABLET PO PRN (08:44)
[2020-06-11] MEDS ORDERED: OMEPRAZOLE 20 MG CAPSULE PO SCH (09:00)
[2020-06-11] MEDS ORDERED: ESCITALOPRAM 20 MG TABLET PO SCH (09:00)
[2020-06-11] MEDS ORDERED: prednisoLONE 1% OPHTH DROPS 1ML BOTTLE OS SCH (09:00)
[2020-06-11] MEDS ORDERED: FLUTICASONE PROPIONATE SPRAY.NAS NS SCH (09:00)
[2020-06-11] MEDS ORDERED: POTASSIUM CHLORIDE 20 MEQ/15 ML ML PT ONE (09:03)
--- NOTE | 2020-06-11 09:03 | General Surg History&Physical ---
HPI History of Present Illness Patient information: Note initiated : 06/11/20 at 8:39 am Service Date, if different from initiated Date: [] Patient: Steve Cavazos 75 y/o M admitted on 06/10/20 for abd pain & nausea. Chief Complaint: SBO 75 yo man with hx of prior Enriquez and subsequent reversal for diverticular disease some 15yrs ago now presented to ED yesterday evening with abdominal distention, nausea, obstipation and abdominal pain along the mid L side. He has had at least 5 total adhesive SBO over the years since his surgery and feels his symptoms are the same as prior - all resolved spontaneously. Pain does not radiate. It is crampy in nature, worsened with palpation and improved with the hydromorphone he received. Pt reported eating moderately cooked broccoli a few hrs prior to onset of symptoms. In the ED pt was found to have a nml WBC and a CT demonstrating dilated proximal small bowel loops with a transition point to the left of the umbilicus. There is no mesenteric edema, free fluid, bowel wall thickening, fecalization of SB contents is seen. NGT was placed. Pt was admitted in December 2019 for SBO - review of this CT scan shows transition point in a different area to the R of midline. Pt now feels significant improved this morning. He has had a small bowel moveme nt and is passing flatus. Distention improving History of present illness: Mr. Cavazos is a 75 year old M Constitutional Constitutional: Absent fever(s) Cardiovascular Cardiovascular: Absent chest pain at rest, edema and leg edema Respiratory Respiratory: Absent cough Gastrointestinal Gastrointestinal: Present abdominal pain Musculoskeletal Musculoskeletal: Absent joint swelling Integumentary Integumentary: Absent photosensitivity Neurological Neurological: Present headache(s) Psychiatric Psychiatric: Absent anxiety and hallucinations Endocrine Endocrine: Absent heat intolerance Hematologic/Lymphatic Hematologic/Lymphatic: Absent easy bleeding Allergic/Immunologic Allergic/Immunologic: Present seasonal rhinorrhea PFSH PFSH All Active Problems (Updated 06/11/20 @ 09:03 by Gab Orellana MD) Small bowel obstruction due to adhesions (Acute) Tendinopathy of right rotator cuff (Chronic) Acute vestibular neuronitis (Acute) Small bowel obstruction (Acute) Small bowel obstruction, partial (Acute) Small bowel obstruction, partial (Chronic) Generalized anxiety disorder with panic attacks (Chronic) Sinusitis, acute (Acute) Myalgia due to HMG CoA reductase inhibitor (Acute) Tension headache (Chronic) Abdominal pain (Acute) Small bowel obstruction, partial (Acute) Allergic rhinitis (Acute) DM type 2 (diabetes mellitus, type 2) (Chronic) Dysmetabolic syndrome X (Chronic) Obstructive sleep apnea (Chronic) Hyperlipidemia (Chronic) Patellofemoral syndrome (Chronic) Diverticula, colon (Chronic) correction (current) use of oral hypoglycemic drugs (Chronic) correction (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) Metabolic Syndrome X (Chronic) Neck pain on left side (Chronic) Greater trochanteric bursitis (Chronic) Environmental allergies (Chronic) Right knee pain (Chronic) History of continuous positive airway pressure (CPAP) dependence (Chronic) Osteoarthrosis multiple sites, 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) Glaucoma (Chronic) Enlarged prostate (Chronic) Elevated LFTs (Chronic) Dizziness (Acute) Depression (Chronic) Degenerative disc disease (Chronic) Bradycardia (Chronic) Allergy (Chronic) Medical History Abdominal pain (Resolved) Abdominal pain (Resolved) Acquired absence of other specified parts of digestive tract (Resolved) Allergy (Chronic) Bowel obstruction (Resolved) 08/19/2013; Small bowel Bradycardia (Chronic) H/O Degenerative disc disease (Chronic) Depression (Chronic) Continue Lexapro 20 mg daily. We will augment treatment for anxiety symptoms with BuSpar, as above. Diverticula, colon (Chronic) Diverticulitis of colon (Resolved) Dizziness (Acute) EKG today CBC, CMP, TSH 48-hour Holter monitor We will likely get him back in with Dr. Damian as soon as we can, but will wait on the Holter monitor first. Dizziness (Resolved) DM type 2 (diabetes mellitus, type 2) (Chronic) Well controlled on metformin ER 500 mg daily. Follows a diabetic diet. Diabetic eye exam overdue, but scheduled for May. Dysfunction of eustachian tube (Resolved) left greater than right Dysmetabolic syndrome X (Chronic) Metabolic Syndrome (dysmetabolic synd x) Elevated LFTs (Chronic) Mild. Remote. Hepatitis panel done 07/21/12 was normal Enlarged prostate (Chronic) Environmental allergies (Chronic) Episode of confusion (Resolved) 2 self-limiting episodes past 2 weeks Episode of dizziness (Resolved) No episodes of dizziness since he saw Dr. Damian Generalized anxiety disorder with panic attacks (Chronic) Much improved with buspirone 7.5 mg twice daily. Continue. Continue Lexapro 20 mg daily Consider Abilify versus psychiatry referral if he obsessive/compulsive symptoms recur. Glaucoma (Chronic) Greater trochanteric bursitis (Chronic) History of continuous positive airway pressure (CPAP) dependence (Chronic) uses a CPAP pillow History of tobacco use (Resolved) remote Hyperlipidemia (Chronic) Incisional hernia (Resolved) Incisional hernia no obstruction or gangrene; epigastric incisional hernia Intestinal adhesions [bands] with obstruction (postprocedural) (postinfection) (Resolved) correction (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) correction (current) use of oral hypoglycemic drugs (Chronic) Metformin Metabolic Syndrome X (Chronic) Myalgia due to HMG CoA reductase inhibitor (Acute) History of intolerance to Lipitor and Crestor. Started pravastatin for a few weeks recently, but stopped about 5 days ago due to myalgia. Stay off pravastatin, and likely should not try another statin ever again. Check CPK and renal panel. Nasal lesion (Resolved) Left sided nasal lesion, skin. 05/11/2014 Neck pain on left side (Chronic) Likely muscular in origin Stretching and range of motion exercises recommended. Obstipation (Resolved) Obstructive sleep apnea (Chronic) Olecranon bursitis (Resolved) Osteoarthrosis multiple sites, 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) bilateral hips. Neck Patellofemoral syndrome (Chronic) Personal history of nicotine dependence (Resolved) Stop smoking over 40 years ago. Prostatitis (Resolved) Pruritus (Resolved) recurring Psoriasis (Resolved) Right knee pain (Chronic) suspect patellofemoral syndrome. Small bowel obstruction due to adhesions (Resolved) resolved at present. Small bowel obstruction, partial (Chronic) Patient has frequent partial SBO's Recent abdominal pain and bloating but benign exam today. Still having bowel movements. Advised patient to continue MiraLAX daily to help prevent frequent recurrence Go to ER if abdominal pain becomes severe or no longer having bowel movements Tennis elbow (Resolved) Tension headache (Chronic) Much improved. Thoracic back pain (Resolved) Right posterior lower thoracic pain; 03/26/2014 TIA (transient ischemic attack) (Resolved) Remote Surgical History Colostomy status (Resolved) History of cataract surgery (Resolved) Left. Right 05/30 History of cholecystectomy (Resolved) 09/05/12 History of colectomy (Resolved) 01/25/2013; Sigmoid colectomy for diverticular disease with subsequent colostomy and takedown History of colonoscopy (Resolved) 09/21/2013 normal post sigmoid colectomy surgery History of colostomy (Resolved) 04/02/2003 History of esophagogastroduodenoscopy (EGD) (Resolved) 03/13/16-EGJ inflammmation History of eye surgery (Resolved) Laser trabeuloplasty. 07/28/12 History of hernia surgery (Resolved) 2009; abdominal hernia repair History of surgery (Resolved) 06/16/04. Dilation of Anastomosis. Multiple History of surgery (Resolved) 06/14/03 - Stoma revision History of surgery (Inactive) 02/22/04 colostomy takedown and reanastomosis. 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 smoking status: Former smoker quit date: 02/14/77 alcohol intake frequency: holiday/special occasion only substance use type: does not use MEDS/ALLERGIES Home Medications and Allergies Home Medications Medication Instructions Recorded Confirmed Type prednisolone acetate 1 % eye 1 drp OS DAILY 07/25/15 06/11/20 History drops,suspension brimonidine 1 gtt OS BID 11/14/15 06/11/20 History desonide 0.05 % topical ointment 1 applic TOPICAL QDAY #60 g 07/09/17 06/11/20 Rx brinzolamide 1 % eye 2 drp OS BID ml 12/24/17 06/11/20 History drops,suspension meclizine 25 mg PO TIDP PRN #20 tab 08/23/19 06/11/20 Rx cetirizine-pseudoephedrine 1 tab PO ACB 09/15/19 06/11/20 History clobetasol 1 applic TOPICAL DAILY 09/15/19 06/11/20 History metformin 500 mg tablet,extended 500 mg PO QHS #90 tab 09/23/19 06/11/20 Rx release 24hr tamsulosin 0.4 mg capsule 0.4 mg PO QHS #90 cap 09/23/19 06/11/20 Rx escitalopram oxalate 20 mg tablet 20 mg PO QDAY #90 tab 09/28/19 06/11/20 Rx fluticasone propionate 50 1 spray INTRANASAL QDAY #9.9 g 10/16/19 06/11/20 Rx mcg/actuation nasal spray,suspension fluoride (sodium) 1.1 % dental 1 applic DENTAL BID #113 g 12/08/19 06/11/20 Rx paste buspirone 7.5 mg tablet 7.5 mg PO BID #180 tab 01/04/20 06/11/20 Rx polyethylene glycol 3350 17 17 g PO QDAY PRN 01/20/20 06/11/20 History gram/dose oral powder omeprazole 20 mg capsule,delayed 20 mg PO QDAY #90 cap 02/25/20 06/11/20 Rx release Allergies Allergy/AdvReac Type Severity Reaction Status Date / Time [id number] Reductase AdvReac Intermediate Myalgia Verified 04/27/20 10:02 Inhibitor meperidine [From Demerol] AdvReac Mild Hypotension Verified 04/27/20 10:02 morphine AdvReac Mild Hallucinati Verified 04/27/20 10:02 ons Physical Examination Vital Signs Vital signs: Temp Pulse Resp BP Pulse Ox 36.9 C 63 14 126/77 95 06/11/20 07:16 06/11/20 07:16 06/11/20 07:16 06/11/20 07:16 06/11/20 07:16 General physical appearance General physical exam: other (well appearing NAD, good historian ) Eyes Eye exam: normal ocular movement; negative loss of movement ENT ENT exam: normal pinna and normal nares; negative nasal discharge Head Head exam IM: Present atraumatic, normal inspection and normocephalic Neck Neck exam: no lymphadenopathy Cardiovascular Cardiovascular: RRR no MGR, Respiratory Respiratory exam: normal expansion, normal respiratory effort and clear to auscultation Abdomen Abdomen: Present soft (large midline laperotomy incisional scar and ostomy scar on RLQ. Moderately distended, + tympanitic, BS pressent, soft, minimally tender in mid L abdomen. no peritoneal signs. ) Integumentary Integumentary: Present no rash Neurologic Neurologic: Present normal coordination and normal sensation; Absent disoriented Musculoskeletal Musculoskeletal: Present normal posture Psychiatric Psychiatric: Present oriented to time, oriented to person, oriented to place, speech is normal and memory intact Results Labs Result diagrams: 06/10/20 20:44 06/10/20 20:44 Labs: Abnormal lab results 06/10/20 Range/Units 20:44 Glucose 131 H (70-105) mg/dL Diabetes panel 06/10/20 Range/Units 20:44 Sodium 139 (133-145) mmol/L Potassium 3.8 (3.3-5.1) mmol/L Chloride 100 (96-108) mmol/L Carbon Dioxide 28 (22-30) mmol/L BUN 19 (8-23) mg/dl Creatinine 0.9 (0.7-1.2) mg/dl Glucose 131 H (70-105) mg/dL Calcium 10.0 (8.6-10.4) mg/dl AST 22 (0-37) U/l ALT 24 (0-40) U/l Alkaline Phosphatase 89 (39-117) U/L Total Protein 7.3 (5.9-8.4) gm/dL Albumin 4.3 (3.2-5.2) gm/dL Calcium panel 06/10/20 Range/Units 20:44 Calcium 10.0 (8.6-10.4) mg/dl Albumin 4.3 (3.2-5.2) gm/dL Pituitary panel 06/10/20 Range/Units 20:44 Sodium 139 (133-145) mmol/L Potassium 3.8 (3.3-5.1) mmol/L Chloride 100 (96-108) mmol/L Carbon Dioxide 28 (22-30) mmol/L BUN 19 (8-23) mg/dl Creatinine 0.9 (0.7-1.2) mg/dl Glucose 131 H (70-105) mg/dL Calcium 10.0 (8.6-10.4) mg/dl Adrenal panel 06/10/20 Range/Units 20:44 Sodium 139 (133-145) mmol/L Potassium 3.8 (3.3-5.1) mmol/L Chloride 100 (96-108) mmol/L Carbon Dioxide 28 (22-30) mmol/L BUN 19 (8-23) mg/dl Creatinine 0.9 (0.7-1.2) mg/dl Glucose 131 H (70-105) mg/dL Calcium 10.0 (8.6-10.4) mg/dl Total Bilirubin 0.7 (0.0-1.0) mg/dL AST 22 (0-37) U/l ALT 24 (0-40) U/l Alkaline Phosphatase 89 (39-117) U/L Total Protein 7.3 (5.9-8.4) gm/dL Albumin 4.3 (3.2-5.2) gm/dL All other labs normal. A/P Assessment and plan (1) Small bowel obstruction due to adhesions: Status: Acute Comment: 75 yo man s/p Enriquez's sigmoid resection and subsequent reversal for diverticulitis - he now presents with an adhesive SBO. Since arrival his pain, distention, and nausea is much improved and he has recently started passing flatus. He may have obstructed from his meal of broccoli. Review of prior images from SBO 5 months ago - shows transition point at different spot in abdomen. As resolving and not recurrent single spot of obstruction. No plans for surgery. He is having significant head pain c/w migraine Plan: Remove NGT Start clears Hm meds started IV valproic acid for cephalgia FEN: LR 75, E will replete KJerrell Proph: [facility] Time Spent With Patient Time: Total time spent is greater than 50% in coordination of care (as documented) at patient's floor/unit and/or counseling patient:
[2020-06-11] MEDS ORDERED: DEXTROSE 50% 50 ML VIAL IV PRN (09:05)
[2020-06-11] MEDS ORDERED: DEXTROSE 31 GM ORAL.SUSP PO PRN (09:05)
[2020-06-11] MEDS: BRINZOLAMIDE EYE OU SCH ×2 (09:22→20:27)
[2020-06-11] MEDS: busPIRone 5 MG TABLET PO SCH ×2 (09:30→20:26)
[2020-06-11] MEDS: INSULIN LISPRO 1 UNIT/0.01 ML UNIT SQ SCH ×3 (11:49→20:27)
--- NOTE | 2020-06-11 19:51 | General Surgery Progress Note ---
SUBJECTIVE Subjective Patient information: Note initiated : 06/11/20 at 7:48 pm Service Date, if different from initiated Date: [] Patient: Steve Cavazos 75 y/o M admitted on 06/10/20 for abd pain & nausea. Chief Complaint: [] UPDATE: PT admitted overnight for SBO - he had return of bowel function with multiple stools and flatus during day. Eating a full liquid diet w/o issue. Abd now quite soft. No tenderness. Pt desires discharge, lives near by Discharged home - Pt has had several SBOs and understands need to slowly advance his diet Constitutional Vitals: Vital Signs Temp Pulse Resp BP Pulse Ox 36.9 C 60 16 115/68 97 06/11/20 16:00 06/11/20 16:45 06/11/20 18:25 06/11/20 16:00 06/11/20 18:25 Period Temp Pulse Resp BP Sys/Stewart Pulse Ox Last 24 Hr 36.0 C-36.9 C 50-63 14-19 112-162/55-120 95-100 Intake and Output 06/11/20 06/11/20 06/11/20 05:59 13:59 21:59 Intake Total 1000 105 720 Output Total 956 896 7227 Balance 550 -295 -930 Weight 85.774 kg 85.774 kg Patient Weight 06/12/20 05:59 Weight 85.774 kg Intake & Output: Intake & Output 06/11/20 06/11/20 06/11/20 05:59 13:59 21:59 Intake Total 1000 105 720 Output Total 197 938 0023 Balance 550 -295 -930 Weight 85.774 kg 85.774 kg Intake: IV 1000 55 Sodium Chloride 0.9% 1,000 ml @ 1000 Wide Open IV BOLUS ONE Rx#: [id number] Depacon 500 mg In Sodium 55 Chloride 0.9% 50 ml @ 50 mls/hr IV ONCE ONE Rx#:[id number] Oral 0 720 Tube Feeding 0 50 Output: Gastric Drainage 50 Left Nare NG/OG 50 Void Amount 693 [id number] Other: Meal Dinner Percent of Meal Consumed 100% Feeding Ability Independent Urine Appearance Clear Clear Urine Color Bright Yellow Dark Yellow Bright Yellow Urine Odor Normal Normal Normal Stool Size Small Moderate Moderate Stool Color Brown Brown Brown Stool Consistency Soft Watery Soft Formed Loose Formed # Bowel Movements 1 3 A/P Time Spent With Patient Time: Total time spent is greater than 50% in coordination of care (as documented) at patient's floor/unit and/or counseling patient:
[2020-06-11] MEDS ORDERED: TAMSULOSIN 0.4 MG CAPSULE PO SCH (21:00)
[2020-06-12] MEDS ORDERED: ENOXAPARIN 40 MG/0.4 ML SYRINGE SQ SCH (09:00)
== END 2020-06-11 20:34 | disposition home or self-care (01) | DRG 390 ==
LOC: ED 20:34 → MEDSUR 23:54
PROVIDERS: ADMIT Surgery; ATTEND Surgery

== ENCOUNTER 2022-03-21 20:29 | Inpatient (IN) ==
[2022-03-21] MEDS ORDERED: IOPAMIDOL 100 ML BOTTLE IV ONE (20:30)
[2022-03-21] MEDS ORDERED: 0.9 % SODIUM CHLORIDE 1,000 ML IV ONE (20:34)
[2022-03-21] MEDS ORDERED: morphine 2 MG/ML VIAL IV ONE (20:48)
[2022-03-21] MEDS ORDERED: ONDANSETRON 4 MG/2 ML VIAL IV ONE (20:48)
--- NOTE | 2022-03-21 20:56 | Emergency Department Note ---
Abdominal Pain HPI General Chief Complaint: Abdominal Pain Stated Complaint: abdominal pain Time Seen by Provider: 03/21/22 20:34 Source: patient Mode of arrival: ambulatory Limitations: no limitations History of Present Illness HPI Narrative: Narrative: Patient presents ED with complaints of abdominal pain that started about 5 hours ago. He rates the pain 9/10. He states his ache and hurts all over. He report s a history of bowel resection as well as colon resection. States from time to time he does get obstructed. He states that he normally has 2-3 bowel movements a day and is only have 1 bowel movement today which was in the morning. He states he ate dinner tonight about 530. He reports some nausea. Patient denies fever, chills, vomiting, diarrhea, constipation, melena, hematochezia, dysuria, hematuria, urinary frequency, cardiac chest pain, shortness of breath. He denies any other alleviating or aggravating factors. Related Data Home Medications Medication Instructions Recorded Confirmed prednisolone acetate 1 % eye 1 drp OS DAILY 07/25/15 01/02/22 drops,suspension brimonidine 0.15 % eye drops 1 gtt OS BID 11/14/15 01/02/22 brinzolamide 1 % eye 2 drp OS BID ml 12/24/17 01/02/22 drops,suspension (Azopt) polyethylene glycol 3350 17 17 g PO QDAY PRN 01/20/20 01/02/22 gram/dose oral powder (Miralax) atorvastatin 10 mg tablet 10 mg PO QDAY tab 04/17/21 01/02/22 cetirizine 10 mg tablet 10 mg PO QDAY PRN 04/17/21 01/02/22 fluticasone propionate 50 1 spray INTRANASAL QDAY PRN g 12/27/21 01/02/22 mcg/actuation nasal spray,suspension (Flonase Allergy Relief) hydrocortisone 2.5 % topical 1 applic TOPICAL BID 12/28/21 01/02/22 ointment metronidazole 0.75 % topical cream 1 applic TOPICAL QDAY 12/28/21 01/02/22 Previous Rx's Medication Instructions Recorded fluoride (sodium) 1.1 % dental 1 applic DENTAL BID #113 g 12/08/19 paste (Clinpro 5000) ukvwlqeops-wyliatfqodalx-jwugmcfx 1 cap PO QDAY PRN #30 cap 09/15/20 50 mg-300 mg-40 mg capsule (Fioricet) naproxen 500 mg tablet 500 mg PO Q12H PRN #30 tab 07/06/21 tizanidine 4 mg tablet 4 mg PO BID PRN #60 tab 07/06/21 buspirone 7.5 mg tablet 7.5 mg PO BID #180 tab 09/20/21 escitalopram oxalate 20 mg tablet 20 mg PO QDAY #90 tab 10/10/21 metformin 500 mg tablet,extended 1,000 mg PO BID #360 tab 10/10/21 release 24hr tramadol 50 mg tablet 50 mg PO Q6H PRN #12 tab 01/02/22 omeprazole 20 mg capsule,delayed 20 mg PO QDAY #90 cap 03/06/22 release Allergies Allergy/AdvReac Type Severity Reaction Status Date / Time Asbhonl-XLU-XqT Reductase AdvReac Intermediate Myalgia Verified 01/02/22 11:11 Inhibitor [Grdbqte-Qcm-Xfv Reductase Inhibitor] meperidine [From Demerol] AdvReac Mild Hypotension Verified 01/02/22 11:11 morphine AdvReac Mild Hallucinati Verified 01/02/22 11:11 ons Review of Systems ROS ROS Narrative: Narrative: All systems ED: reviewed and negative except as stated. [facility] Narrative Patient History Narrative: Narrative: Medical/Surgical/Family History All Active Problems (Updated 03/21/22 @ 22:40 by Aaron Wang DO) SBO (small bowel obstruction) (Acute) Nausea (Acute) Shoulder pain, right (Acute) Ingrown toenail of both feet (Acute) Intestinal adhesions (Acute) Lower abdominal pain (Acute) Left flank pain (Acute) BPH NOS w ur obs/LUTS (Acute) Orthostatic hypotension (Acute) Aortic stenosis, mild (Acute) Pre-syncope (Acute) Medicare annual wellness visit, subsequent (Acute) Acute neck pain (Acute) Sleep difficulties (Acute) Chronic headaches (Acute) Tendinopathy of right rotator cuff (Chronic) Acute vestibular neuronitis (Acute) Generalized anxiety disorder with panic attacks (Chronic) Sinusitis, acute (Acute) Myalgia due to HMG CoA reductase inhibitor (Acute) Tension headache (Chronic) Abdominal pain (Acute) Allergic rhinitis (Acute) DM type 2 (diabetes mellitus, type 2) (Chronic) Dysmetabolic syndrome X (Chronic) Obstructive sleep apnea (Chronic) Hyperlipidemia (Chronic) Patellofemoral syndrome (Chronic) Diverticula, colon (Chronic) half-way (current) use of oral hypoglycemic drugs (Chronic) 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) Metabolic Syndrome X (Chronic) Neck pain on left side (Chronic) Greater trochanteric bursitis (Chronic) Environmental allergies (Chronic) Right knee pain (Chronic) History of continuous positive airway pressure (CPAP) dependence (Chronic) Osteoarthrosis multiple sites, 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) Glaucoma (Chronic) Enlarged prostate (Chronic) Elevated LFTs (Chronic) Dizziness (Acute) Depression (Chronic) Degenerative disc disease (Chronic) Bradycardia (Chronic) Allergy (Chronic) Medical History Abdominal pain Abdominal pain Acquired absence of other specified parts of digestive tract Allergy Bowel obstruction 08/19/2013; Small bowel Bradycardia H/O Degenerative disc disease Depression Continue Lexapro 20 mg daily. We will augment treatment for anxiety symptoms with BuSpar, as above. Diverticula, colon Diverticulitis of colon Dizziness Cardiac work-up including Holter monitor last year was negative. He does not feel dizzy today, rather feels like he is going to get dizzy. Difficult to describe. Denies vertigo. He will let us know if the symptoms worsen, and he will follow up with cardiology in the next couple of weeks. Dizziness DM type 2 (diabetes mellitus, type 2) Dysfunction of eustachian tube left greater than right Dysmetabolic syndrome X Metabolic Syndrome (dysmetabolic synd x) Elevated LFTs Mild. Remote. Hepatitis panel done 07/21/12 was normal Enlarged prostate Environmental allergies Episode of confusion 2 self-limiting episodes past 2 weeks Episode of dizziness No episodes of dizziness since he saw Dr. Damian Generalized anxiety disorder with panic attacks Much improved with buspirone 7.5 mg twice daily. Continue. Continue Lexapro 20 mg daily Consider Abilify versus psychiatry referral if he obsessive/compulsive symptoms recur. 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 Started pravastatin for a few weeks recently, but stopped about 5 days ago due to myalgia. Stay off pravastatin, and likely should not try another statin ever again. Check CPK and renal panel. Nasal lesion Left sided nasal lesion, skin. 05/11/2014 Neck pain on left side Likely muscular in origin Stretching and range of motion exercises recommended. Obstipation Obstructive sleep apnea No longer using CPAP for the last few years due to losing weight and noticing that he no longer snores. His Apple Watch is telling him that his sleep quality is poor with multiple wake ups. He wakes up feeling very tired. He agrees he may need treatment for KEI again. Olecranon bursitis Osteoarthrosis multiple sites, not specified as generalized bilateral hips. Neck Patellofemoral syndrome Personal history of nicotine dependence Stop smoking over 40 years ago. Prostatitis Pruritus recurring Psoriasis Right knee pain suspect patellofemoral syndrome. Shoulder pain, right Small bowel obstruction due to adhesions resolved at present. Tennis elbow Tension headache Multiple days per week MR brain negative Massage therapy not as helpful Trial of Fioricet for bad days as needed Thoracic back pain Right posterior lower thoracic pain; 03/26/2014 TIA (transient ischemic attack) Remote Surgical History Colostomy status History of cataract surgery Left. Right 05/30 History of cholecystectomy 09/05/12 History of colectomy 01/25/2013; Sigmoid colectomy for diverticular disease with subsequent colostomy and takedown History of colonoscopy 09/21/2013 normal post sigmoid colectomy surgery History of colostomy 04/02/2003 History of esophagogastroduodenoscopy (EGD) 03/13/16-EGJ inflammmation History of eye surgery Laser trabeuloplasty. 07/28/12 History of hernia surgery 2009; abdominal hernia repair History of surgery 06/16/04. Dilation of Anastomosis. Multiple History of surgery 06/14/03 - Stoma revision History of surgery 02/22/04 colostomy takedown and reanastomosis. History of tonsillectomy 1954 History of vasectomy Family History Grandfather Malignant neoplasm of urinary bladder Paternal Father , at 94 of unknown cause Mother , in late 80s of unknown cause Unknown Acute myocardial infarction FH+ for early CAD Social History Smoking Status: Former smoker Alcohol Intake Frequency: holiday/special occasion only Substance Use: does not use Exam Narrative Narrative: Narrative: General Limitations: no limitations General appearance: Present alert Respiratory Respiratory: Present normal lung sounds bilaterally; Absent respiratory distress Cardiovascular Cardiovascular: Present regular rate and normal rhythm Adbominal Abdominal: Present soft, tenderness (Right lower quadrant left lower quadrant) and hypoactive bowel sounds; Absent guarding Back Back: Absent CVA tenderness (R) or CVA tenderness (L) Neurological Neurological: Present oriented X3 and normal gait Psychiatric Psychiatric: Present normal affect and normal mood Skin Skin: Present warm (WNL), intact and normal color Course Course Course Narrative: Patient was evaluated for abdominal pain. Labs were obtained and were unremarkable. Patient was afebrile hemodynamically stable. Patient was given some IV fluids, Zofran fentanyl for his discomfort. CT abdomen pelvis obtained with image reviewed myself reveals small bowel obstruction. Case was discussed with on-call surgeon, Dr. Castillo who recommends the patient be admitted to the hospital, made n.p.o., NG tube placed. We will also go ahead and order patient some as needed pain meds as well as some antiemetics. Plan was discussed with patient and he is in agreement with plan. Reevaluation(s) Reevaluation #1: Patient remains hemodynamically stable. No new complaints at this time. Pain is well controlled. Time: 21:31 Consultations Consultation #1: Case discussed with on-call surgeon, Dr. Castillo, who recommends that patient be admitted to the hospital, made n.p.o. Time: 22:31 Vital Signs Vital signs: Vital Signs Temperature 96.8 F L 03/21/22 20:30 Pulse Rate 70 03/21/22 20:30 Respiratory Rate 17 03/21/22 20:30 Blood Pressure 159/101 03/21/22 20:30 Pulse Oximetry (%) 97 03/21/22 20:30 Temperature 96.8 F L 03/21/22 20:30 Pulse Rate 61 03/21/22 23:01 Respiratory Rate 17 03/21/22 20:30 Blood Pressure 146/83 07/06/22 23:01 Pulse Oximetry (%) 97 03/21/22 23:01 [facility] MDM Narrative Medical decision making narrative: Narrative: Differential Diagnosis Differential Diagnosis: Small bowel obstruction, diverticulitis, gastroenteritis Medical Records Medical records reviewed: Yes I reviewed the patient's medical records. Lab Data Lab results reviewed: Yes I reviewed the patient's lab results. Result diagrams: 03/21/22 20:40 03/21/22 20:40 Labs: Lab Results 03/21/22 03/21/22 03/21/22 Range/Units 20:40 20:40 21:15 WBC 8.5 (4.5-11.0) K/mcL RBC 4.78 (4.63-6.08) M/mcL Hgb 16.0 (13.7-17.5) g/dL Hct 44.8 (40.1-51.0) % POC Hct 42.0 (41-55) MCV 93.7 (80.0-100.0) fL MCH 33.5 (26.0-34.0) pg MCHC 35.7 (31.0-36.0) g/dL RDW 12.0 (11.5-14.5) % Plt Count 188 (140-440) K/mcL MPV 9.7 (7.4-10.4) fL Immature Gran % (Auto) 0.4 (0.0-0.5) % Neut % (Auto) 65.6 (38.0-78.0) % Lymph % (Auto) 24.6 (15.5-49.0) % [place] % (Auto) 7.2 (1.0-12.0) % Eos % (Auto) 1.8 (0.0-7.0) % Baso % (Auto) 0.4 (0.0-2.0) % Lymph # (Auto) 2.10 (1.50-4.80) K/mcL [place] # (Auto) 0.61 (0.10-0.90) K/mcL Eos # (Auto) 0.15 (0.00-0.70) K/mcL Baso # (Auto) 0.03 (0.00-0.30) K/mcL Immature Gran # 0.03 (0.00-0.05) K/mcl Absolute Neutrophils 5.63 (1.80-8.00) K/mcL POC Sodium 141 (133-145) Sodium 136 (133-145) mmol/L POC Potassium 3.5 (3.3-5.1) Potassium 3.9 (3.3-5.1) mmol/L POC Chloride 103 (96-108) Chloride 101 (96-108) mmol/L Carbon Dioxide 26 (22-30) mmol/L POC Total CO2 23.0 (22-30) Anion Gap 9.0 (8.0-16.0) POC BUN 18 (6-20) BUN 14 (8-23) mg/dL Creatinine 0.8 (0.7-1.2) mg/dL POC Creatinine 0.7 (0.6-1.2) GFR Calculation 87 Glucose 177 H (70-105) mg/dL POC Glucose 168 H (70-105) Calcium 9.4 (8.6-10.4) mg/dL POC WB Ioniz Calcium 1.27 (1.16-1.32) Total Bilirubin 1.3 H (0.1-1.0) mg/dL AST 16 (<40) U/L ALT 27 (<40) U/L Alkaline Phosphatase 72 (39-117) U/L Total Protein 6.7 (5.9-8.4) gm/dL Albumin 4.2 (3.2-5.2) gm/dL Globulin 2.5 (2.2-3.7) gm/dL Albumin/Globulin Ratio 1.7 (1.0-2.3) Radiology Data Radiology results reviewed: Yes I reviewed the patient's radiology results. Core Measures AMI Core Measures Followed: Yes Discharge Plan Patient/Caregiver Discharge Instructions Pt seen by CAKE [facility]INGER/PA only: No Clinical Impression: SBO (small bowel obstruction), Nausea Patient Disposition: Xfer As Inpt ([facility]) Condition: Good Follow up with: Steve Pendleton DO [Primary Care Provider] - Prescriptions: No Action naproxen 500 mg tablet 500 mg PO Q12H PRN (Reason: pain) Qty: 30 0RF Rx Instructions: administer with food or milk tizanidine 4 mg tablet 4 mg PO BID PRN (Reason: muscle spasticity) Qty: 60 0RF buspirone 7.5 mg tablet 7.5 mg PO BID Qty: 180 1RF escitalopram oxalate 20 mg tablet 20 mg PO QDAY Qty: 90 3RF metformin 500 mg tablet extended release 24hr 1,000 mg PO BID Qty: 360 3RF omeprazole 20 mg capsule,delayed release(DR/EC) 20 mg PO QDAY Qty: 90 3RF prednisolone acetate 1 % drops,suspension 1 drp OS DAILY 0RF Rx Instructions: 1 drp OPHTHALMIC OS QDay brinzolamide [Azopt] 1 % drops,suspension 2 drp OS BID 0RF Label Comments: Each eye Clinpro 5000 1.1 % paste 1 applic DENTAL BID Qty: 113 0RF polyethylene glycol 3350 [Miralax] 17 gram/dose powder 17 g PO QDAY PRN (Reason: Constipation) 0RF grosqinebv-hjzynxtltszew-xfic [Fioricet] 50-300-40 mg capsule 1 cap PO QDAY PRN (Reason: headache) Qty: 30 0RF Rx Instructions: do not take after 3 pm, contains caffeine atorvastatin 10 mg tablet 10 mg PO QDAY 0RF Label Comments: TAKE 1 TABLET BY MOUTH ONCE DAILY cetirizine 10 mg tablet 10 mg PO QDAY PRN0RF fluticasone propionate [Flonase Allergy Relief] 50 mcg/actuation spray,ye spension 1 spray INTRANASAL QDAY PRN0RF Rx Instructions: administer into each nostril metronidazole 0.75 % cream 1 applic topical QDAY 0RF hydrocortisone 2.5 % ointment 1 applic topical BID 0RF tramadol 50 mg tablet 50 mg PO Q6H PRN (Reason: pain) Qty: 12 0RF brimonidine 1 GTT bottle 1 gtt OS BID 0RF
[2022-03-21] MEDS ORDERED: fentaNYL 100 MCG/2 ML VIAL IV ONE (21:19)
[2022-03-21 21:22] LABS: POC Calcium, Ionized 1.27 (1.16-1.32); POC Creatinine 0.7 (0.6-1.2); POC Potassium 3.5 (3.3-5.1)
[2022-03-21 21:23] LABS: Basophils # (Auto) 0.03 K/mcL (0.00-0.30); Basophils % (Auto) 0.4 % (0.0-2.0); Eosinophils # (Auto) 0.15 K/mcL (0.00-0.70); Eosinophils % (Auto) 1.8 % (0.0-7.0); Hematocrit 44.8 % (40.1-51.0); Lymphocytes % (Auto) 24.6 % (15.5-49.0); Mean Cell Volume 93.7 fL (80.0-100.0); Mean Corpuscular HGB Conc 35.7 g/dL (31.0-36.0); Mean Platelet Volume 9.7 fL (7.4-10.4); Monocytes # (Auto) 0.61 K/mcL (0.10-0.90); Monocytes % (Auto) 7.2 % (1.0-12.0); Neutrophils % (Auto) 65.6 % (38.0-78.0); Platelet Count 188 K/mcL (140-440); RBC 4.78 M/mcL (4.63-6.08); WBC 8.5 K/mcL (4.5-11.0)
[2022-03-21 21:39] LABS: ALT/SGPT 27 U/L (<40); AST/SGOT 16 U/L (<40); Albumin 4.2 gm/dL (3.2-5.2); Albumin/Globulin Ratio 1.7 (1.0-2.3); Alkaline Phosphatase 72 U/L (39-117); Bilirubin,Total 1.3 mg/dL (0.1-1.0); Blood Urea Nitrogen 14 mg/dL (8-23); Calcium 9.4 mg/dL (8.6-10.4); Carbon Dioxide 26 mmol/L (22-30); Chloride 101 mmol/L (96-108); Globulin 2.5 gm/dL (2.2-3.7); Glomerular Filtration Rate 87; Glucose 177 mg/dL (70-105)
[2022-03-21] MEDS ORDERED: ONDANSETRON 4 MG/2 ML VIAL IV PRN (22:36)
[2022-03-21] MEDS: 0.9 % SODIUM CHLORIDE 1,000 ML IV SCH (23:18)
[2022-03-22] MEDS: fentaNYL 100 MCG/2 ML VIAL IV PRN ×3 (00:13→09:28)
--- NOTE | 2022-03-22 05:55 | Cat Scan Report ---
INDICATION: abd pain COMPARISON: Previous examinations dated 07/20/2021, 06/10/2020 TECHNIQUE: Axial images were obtained through the abdomen and pelvis. Sagittally and coronally reformatted images. 80 mL Isovue 370 injected intravenously. Oral contrast material was not administered FINDINGS: Examination was initially interpreted by [facility] Lung bases:Negative. No pulmonary parenchymal nodule. No pleural fluid or pericardial fluid. There is cardiomegaly. No pleural or pericardial fluid. Liver:Low density liver consistent with hepatic steatosis. There is no focal mass. Liver contour is smooth. Gallbladder, bilary:Previous cholecystectomy. Common bile that measures 8 mm. No intrahepatic bile duct dilatation Spleen:Mild splenomegaly, unchanged. Spleen measures 14.3 cm maximally. Normal enhancement of the splenic and portal veins Pancreas:No pancreatic mass. No peripancreatic abnormality Adrenal glands:Negative Kidneys,ureters,bladder:No solid renal mass. No hydronephrosis. No obstructing or nonobstructing calculi. There is a benign right renal cyst, unchanged No hydroureter. No ureteral calculus. No bladder stone. No detectable bladder mass. Gastrointestinal:Previous subtotal colectomy. Anastomotic suture line within the pelvis. There is an enteral colonic anastomosis in the right lower quadrant. Dilated jejunum. Maximum cross-sectional diameter measures 4.3 cm. Jejunum is predominantly fluid-filled although there is a small bowel feces sign. Transition point is not well-defined but appears to be in the mid abdomen, perhaps slightly to the left of midline. There is no closed-loop obstruction. There is normal bowel enhancement without evidence for ischemia. Appearance is consistent with mechanical small bowel obstruction secondary to adhesions Moderately distended and fluid-filled stomach Appendix: The appendix is not visualized Vascular:There is calcification of the abdominal aorta. No abdominal aortic aneurysm. Celiac trunk and superior mesenteric artery are normal. Inferior mesenteric artery is not well-visualized. Lymphatic:No retroperitoneal or mesenteric adenopathy Mesentery, peritoneum: Mild mesenteric edema at the site of obstruction. There is no free fluid. No intra-abdominal abscess. No pneumoperitoneum. Reproductive:Mildly enlarged prostate Musculoskeletal:No lumbar compression fractures. Sacrum and pelvis are negative. No hip fracture. No abdominal wall or inguinal hernia IMPRESSION: 1. History of previous subtotal colectomy 2. Mechanical small bowel obstruction with dilated jejunum and small bowel feces sign. Transition point is in the mid abdomen. No closed-loop obstruction or evidence for bowel ischemia 3. Mild splenomegaly, unchanged 4. Low density liver consistent with hepatic steatosis 5. Previous cholecystectomy The exam was performed using radiation dose optimization techniques including, but not limited to, automated exposure control, adjustment of the mA and/or kV according to patient size and use of iterative reconstruction technique. Interpreted and Authenticated by: Steve Watkins 03/22/22
--- NOTE | 2022-03-22 05:56 | XRay Report ---
INDICATION: ng tube TECHNIQUE: Supine abdomen. COMPARISON: CT scan dated 03/21/2022 FINDINGS:Interval placement of an esophagogastric tube in the proximal to mid stomach. There is contrast material within the renal collecting systems and bladder from prior CT scan. IMPRESSION: Esophagogastric tube in the stomach Interpreted and Authenticated by: Steve Watkins 03/22/22
[2022-03-22] MEDS: 0.9 % SODIUM CHLORIDE 1,000 ML IV SCH ×2 (09:28→18:45)
[2022-03-22] MEDS ORDERED: DIATRIZOATE MEGLU/DIATRIZO SOD 120 ML BOTTLE PO ONE (12:39)
--- NOTE | 2022-03-22 12:48 | XRay Report ---
INDICATION: pSBO TECHNIQUE: Routine small bowel study with water-soluble contrast material. Contrast material was injected through the esophagogastric tube. COMPARISON: Previous CT scan dated 03/21/20202009 FINDINGS: No significant small bowel dilatation demonstrated on present examination. There is contrast material with in the rectum by 3 hours, 15 minutes postingestion. Appearance is consistent with resolution of mechanical small bowel obstruction. IMPRESSION: Water-soluble contrast material within the rectum by 3 hours and 15 minutes post Interpreted and Authenticated by: Steve Watkins 03/22/22
--- NOTE | 2022-03-22 14:16 | General Surg History&Physical ---
HPI History of Present Illness Patient information: Note initiated : 03/22/22 at 2:11 pm Service Date, if different from initiated Date: [] Patient: tSeve Cavazos 76 y/o M admitted on 03/21/22 for abdominal pain. Chief Complaint: [] Chief complaint: nausea and emisis History of present illness: Mr. Cavazos is a 76 year old M with a history of colectomy for diverticulitis who presents with 1 day history of nausea, emesis and abdominal distention. Patient has had several episodes of SBO since his colectomy and he feels these are his normal symptoms. No fever, no chills. Review of Systems Review of systems: reviewed, negative other than HPI PFSH PFSH All Active Problems SBO (small bowel obstruction) (Acute) Nausea (Acute) Shoulder pain, right (Acute) Ingrown toenail of both feet (Acute) Intestinal adhesions (Acute) Lower abdominal pain (Acute) Left flank pain (Acute) BPH NOS w ur obs/LUTS (Acute) Orthostatic hypotension (Acute) Aortic stenosis, mild (Acute) Pre-syncope (Acute) Medicare annual wellness visit, subsequent (Acute) Acute neck pain (Acute) Sleep difficulties (Acute) Chronic headaches (Acute) Tendinopathy of right rotator cuff (Chronic) Acute vestibular neuronitis (Acute) Generalized anxiety disorder with panic attacks (Chronic) Sinusitis, acute (Acute) Myalgia due to HMG CoA reductase inhibitor (Acute) Tension headache (Chronic) Abdominal pain (Acute) Allergic rhinitis (Acute) DM type 2 (diabetes mellitus, type 2) (Chronic) Dysmetabolic syndrome X (Chronic) Obstructive sleep apnea (Chronic) Hyperlipidemia (Chronic) Patellofemoral syndrome (Chronic) Diverticula, colon (Chronic) 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) prison (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) Metabolic Syndrome X (Chronic) Neck pain on left side (Chronic) Greater trochanteric bursitis (Chronic) Environmental allergies (Chronic) Right knee pain (Chronic) History of continuous positive airway pressure (CPAP) dependence (Chronic) Osteoarthrosis multiple sites, 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) Glaucoma (Chronic) Enlarged prostate (Chronic) Elevated LFTs (Chronic) Dizziness (Acute) Depression (Chronic) Degenerative disc disease (Chronic) Bradycardia (Chronic) Allergy (Chronic) Medical History Abdominal pain Abdominal pain Acquired absence of other specified parts of digestive tract Allergy Bowel obstruction 08/19/2013; Small bowel Bradycardia H/O Degenerative disc disease Depression Continue Lexapro 20 mg daily. We will augment treatment for anxiety symptoms with BuSpar, as above. Diverticula, colon Diverticulitis of colon Dizziness Cardiac work-up including Holter monitor last year was negative. He does not feel dizzy today, rather feels like he is going to get dizzy. Difficult to describe. Denies vertigo. He will let us know if the symptoms worsen, and he will follow up with cardiology in the next couple of weeks. Dizziness DM type 2 (diabetes mellitus, type 2) Dysfunction of eustachian tube left greater than right Dysmetabolic syndrome X Metabolic Syndrome (dysmetabolic synd x) Elevated LFTs Mild. Remote. Hepatitis panel done 07/21/12 was normal Enlarged prostate Environmental allergies Episode of confusion 2 self-limiting episodes past 2 weeks Episode of dizziness No episodes of dizziness since he saw Dr. Damian Generalized anxiety disorder with panic attacks Much improved with buspirone 7.5 mg twice daily. Continue. Continue Lexapro 20 mg daily Consider Abilify versus psychiatry referral if he obsessive/compulsive symptoms recur. 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 Started pravastatin for a few weeks recently, but stopped about 5 days ago due to myalgia. Stay off pravastatin, and likely should not try another statin ever again. Check CPK and renal panel. Nasal lesion Left sided nasal lesion, skin. 05/11/2014 Neck pain on left side Likely muscular in origin Stretching and range of motion exercises recommended. Obstipation Obstructive sleep apnea No longer using CPAP for the last few years due to losing weight and noticing that he no longer snores. His Apple Watch is telling him that his sleep quality is poor with multiple wake ups. He wakes up feeling very tired. He agrees he may need treatment for KEI again. Olecranon bursitis Osteoarthrosis multiple sites, not specified as generalized bilateral hips. Neck Patellofemoral syndrome Personal history of nicotine dependence Stop smoking over 40 years ago. Prostatitis Pruritus recurring Psoriasis Right knee pain suspect patellofemoral syndrome. Shoulder pain, right Small bowel obstruction due to adhesions resolved at present. Tennis elbow Tension headache Multiple days per week MR brain negative Massage therapy not as helpful Trial of Fioricet for bad days as needed Thoracic back pain Right posterior lower thoracic pain; 03/26/2014 TIA (transient ischemic attack) Remote Surgical History Colostomy status History of cataract surgery Left. Right 05/30 History of cholecystectomy 09/05/12 History of colectomy 01/25/2013; Sigmoid colectomy for diverticular disease with subsequent colo stomy and takedown History of colonoscopy 09/21/2013 normal post sigmoid colectomy surgery History of colostomy 04/02/2003 History of esophagogastroduodenoscopy (EGD) 03/13/16-EGJ inflammmation History of eye surgery Laser trabeuloplasty. 07/28/12 History of hernia surgery 2009; abdominal hernia repair History of surgery 06/16/04. Dilation of Anastomosis. Multiple History of surgery 06/14/03 - Stoma revision History of surgery 02/22/04 colostomy takedown and reanastomosis. 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 smoking status: Former smoker quit date: 02/14/77 alcohol intake frequency: holiday/special occasion only substance use type: does not use MEDS/ALLERGIES Home Medications and Allergies Home Medications Medication Instructions Recorded Confirmed Type prednisolone acetate 1 % eye 1 drp OS DAILY 07/25/15 01/02/22 History drops,suspension brimonidine 0.15 % eye drops 1 gtt OS BID 11/14/15 01/02/22 History brinzolamide 1 % eye 2 drp OS BID ml 12/24/17 01/02/22 History drops,suspension (Azopt) fluoride (sodium) 1.1 % dental 1 applic DENTAL BID #113 g 12/08/19 01/02/22 Rx paste (Clinpro 5000) polyethylene glycol 3350 17 17 g PO QDAY PRN 01/20/20 01/02/22 History gram/dose oral powder (Miralax) ddmhzgxqyp-dkxxjogkmzwss-pzrxsmrl 1 cap PO QDAY PRN #30 cap 09/15/20 01/02/22 Rx 50 mg-300 mg-40 mg capsule (Fioricet) atorvastatin 10 mg tablet 10 mg PO QDAY tab 04/17/21 01/02/22 History cetirizine 10 mg tablet 10 mg PO QDAY PRN 04/17/21 01/02/22 History naproxen 500 mg tablet 500 mg PO Q12H PRN #30 tab 07/06/21 01/02/22 Rx tizanidine 4 mg tablet 4 mg PO BID PRN #60 tab 07/06/21 01/02/22 Rx buspirone 7.5 mg tablet 7.5 mg PO BID #180 tab 09/20/21 01/02/22 Rx escitalopram oxalate 20 mg tablet 20 mg PO QDAY #90 tab 10/10/21 01/02/22 Rx metformin 500 mg tablet,extended 1,000 mg PO BID #360 tab 10/10/21 01/02/22 Rx release 24hr fluticasone propionate 50 1 spray INTRANASAL QDAY PRN g 12/27/21 01/02/22 History mcg/actuation nasal spray,suspension (Flonase Allergy Relief) hydrocortisone 2.5 % topical 1 applic TOPICAL BID 12/28/21 01/02/22 History ointment metronidazole 0.75 % topical cream 1 applic TOPICAL QDAY 12/28/21 01/02/22 History tramadol 50 mg tablet 50 mg PO Q6H PRN #12 tab 01/02/22 01/02/22 Rx omeprazole 20 mg capsule,delayed 20 mg PO QDAY #90 cap 03/06/22 Rx release Allergies Allergy/AdvReac Type Severity Reaction Status Date / Time [id number] Reductase AdvReac Intermediate Myalgia Verified 01/02/22 11:11 Inhibitor [Ufvjzjy-Nem-Fua Reductase Inhibitor] meperidine [From Demerol] AdvReac Mild Hypotension Verified 01/02/22 11:11 morphine AdvReac Mild Hallucinati Verified 01/02/22 11:11 ons Physical Examination Vital Signs Vital signs: Temp Pulse Resp BP Pulse Ox 98.3 F 63 16 119/73 92 03/22/22 12:00 03/22/22 12:00 03/22/22 12:00 03/22/22 12:00 03/22/22 12:00 General physical appearance General physical exam: well developed, well nourished and no distress Eyes Eye exam: PERRL and normal ocular movement ENT ENT exam: normal pinna, normal nares, normal mucosa, no hearing loss and no congestion Head Head exam IM: Present atraumatic and normocephalic Neck Neck exam: no masses, no bruits, trachea midline, no lymphadenopathy and no venous distension Cardiovascular Cardiovascular exam IM: Present normal rate and rhythm Respiratory Respiratory exam: normal expansion, normal respiratory effort, clear to percussion and clear to auscultation Abdomen Abdomen: Present soft, non tender, bowel sounds and distended; Absent guarding, rigid or rebound Hernia: Present none Genitourinary Genitourinary (Male): Present normal penis with no external lesions Rectum Rectum: Present normal sphincter tone, no hemorrhoids, no tenderness, no masses and no bleeding Integumentary Integumentary: Present no rash, no growths and no abnormal pigmentation Neurologic Neurologic: Present normal coordination and normal sensation Musculoskeletal Musculoskeletal: Present normal gait and normal posture Psychiatric Psychiatric: Present oriented to time, oriented to person, oriented to place, speech is normal and memory intact Results Labs Result diagrams: 03/21/22 20:40 03/21/22 20:40 Labs: Abnormal lab results 03/21/22 03/21/22 Range/Units 20:40 21:15 Glucose 177 H (70-105) mg/dL POC Glucose 168 H (70-105) Total Bilirubin 1.3 H (0.1-1.0) mg/dL Diabetes panel 03/21/22 Range/Units 20:40 Sodium 136 (133-145) mmol/L Potassium 3.9 (3.3-5.1) mmol/L Chloride 101 (96-108) mmol/L Carbon Dioxide 26 (22-30) mmol/L BUN 14 (8-23) mg/dL Creatinine 0.8 (0.7-1.2) mg/dL Glucose 177 H (70-105) mg/dL Calcium 9.4 (8.6-10.4) mg/dL AST 16 (<40) U/L ALT 27 (<40) U/L Alkaline Phosphatase 72 (39-117) U/L Total Protein 6.7 (5.9-8.4) gm/dL Albumin 4.2 (3.2-5.2) gm/dL Calcium panel 03/21/22 Range/Units 20:40 Calcium 9.4 (8.6-10.4) mg/dL Albumin 4.2 (3.2-5.2) gm/dL Pituitary panel 03/21/22 Range/Units 20:40 Sodium 136 (133-145) mmol/L Potassium 3.9 (3.3-5.1) mmol/L Chloride 101 (96-108) mmol/L Carbon Dioxide 26 (22-30) mmol/L BUN 14 (8-23) mg/dL Creatinine 0.8 (0.7-1.2) mg/dL Glucose 177 H (70-105) mg/dL Calcium 9.4 (8.6-10.4) mg/dL Adrenal panel 03/21/22 Range/Units 20:40 Sodium 136 (133-145) mmol/L Potassium 3.9 (3.3-5.1) mmol/L Chloride 101 (96-108) mmol/L Carbon Dioxide 26 (22-30) mmol/L BUN 14 (8-23) mg/dL Creatinine 0.8 (0.7-1.2) mg/dL Glucose 177 H (70-105) mg/dL Calcium 9.4 (8.6-10.4) mg/dL Total Bilirubin 1.3 H (0.1-1.0) mg/dL AST 16 (<40) U/L ALT 27 (<40) U/L Alkaline Phosphatase 72 (39-117) U/L Total Protein 6.7 (5.9-8.4) gm/dL Albumin 4.2 (3.2-5.2) gm/dL All other labs normal. Imaging CT scan - abdomen: image reviewed A/P Assessment and plan (1) SBO (small bowel obstruction): Plan: s/s c/w sbp admit, npo, ngt plan sbft Status: Acute Time Spent With Patient Time: Total time spent is greater than 50% in coordination of care (as documented) at patient's floor/unit and/or counseling patient:
[2022-03-23] MEDS: 0.9 % SODIUM CHLORIDE 1,000 ML IV SCH (05:33)
--- NOTE | 2022-03-23 07:58 | Discharge Summary ---
Discharge Provider Provider IMPORTANT FOLLOW-UP INFORMATION FOR PCP: Patient information: Note initiated : 03/23/22 at 7:57 am Service Date, if different from initiated Date: [] Patient: Steve Cavazos 76 y/o M admitted on 03/21/22 for abdominal pain. Chief Complaint: [] Date of admission: 03/21/22 23:56 Discharge date: 03/23/22 Primary care physician: Steve Pendleton DO Consults: 03/21/22 Consult to Physician [CONS] Stat Comment: Consulting Provider: Agus Castillo Reason For Exam: Physician to Consult COURSE Hospital Course Hospital course: Patient was mated for a partial small bowel obstruction, small bowel follow- through showed contrast through to the colon and under 2 hours. Patient is now tolerating regular diet, ambulatory and ready for discharge. Discharge diagnosis: Resolved small bowel obstruction Time Spent with Patient Time attestation: Total time spent providing and/or coordinating discharge services: Time spent: Less than 30 minutes Physical Examination Vital Signs Vital signs: Temp Pulse Resp BP Pulse Ox O2 Del Method 97.3 F 60 17 116/70 95 03/23/22 07:22 03/23/22 07:22 03/23/22 07:22 03/23/22 07:22 03/23/22 07:22 03/23/22 07:22 Discharge Plan Patient/Caregiver Discharge Instructions Activity: increase activity as tolerated Diet: Regular Diet Activity Restrictions/Additional Instructions: Resume normal activity as tolerated, follow-up with me as needed. Prescriptions: Continued naproxen 500 mg tablet 500 mg PO Q12H PRN (Reason: pain) Qty: 30 0RF Rx Instructions: administer with food or milk tizanidine 4 mg tablet 4 mg PO BID PRN (Reason: muscle spasticity) Qty: 60 0RF buspirone 7.5 mg tablet 7.5 mg PO BID Qty: 180 1RF escitalopram oxalate 20 mg tablet 20 mg PO QDAY Qty: 90 3RF metformin 500 mg tablet extended release 24hr 1,000 mg PO BID Qty: 360 3RF omeprazole 20 mg capsule,delayed release(DR/EC) 20 mg PO QDAY Qty: 90 3RF prednisolone acetate 1 % drops,suspension 1 drp OS DAILY Rx Instructions: 1 drp OPHTHALMIC OS QDay brinzolamide [Azopt] 1 % drops,suspension 2 drp OS BID Label Comments: Each eye Clinpro 5000 1.1 % paste 1 applic DENTAL BID Qty: 113 0RF polyethylene glycol 3350 [Miralax] 17 gram/dose powder 17 g PO QDAY PRN (Reason: Constipation) yxiqovorel-sqasjjzbpzsex-jolf [Fioricet] 50-300-40 mg capsule 1 cap PO QDAY PRN (Reason: headache) Qty: 30 0RF Rx Instructions: do not take after 3 pm, contains caffeine atorvastatin 10 mg tablet 10 mg PO QDAY Label Comments: TAKE 1 TABLET BY MOUTH ONCE DAILY cetirizine 10 mg tablet 10 mg PO QDAY PRN fluticasone propionate [Flonase Allergy Relief] 50 mcg/actuation spray,suspension 1 spray INTRANASAL QDAY PRN Rx Instructions: administer into each nostril metronidazole 0.75 % cream 1 applic topical QDAY hydrocortisone 2.5 % ointment 1 applic topical BID tramadol 50 mg tablet 50 mg PO Q6H PRN (Reason: pain) Qty: 12 0RF brimonidine 1 GTT bottle 1 gtt OS BID Follow Up Plan Follow up with: Steve Pendleton DO [Primary Care Provider] - Patient Disposition: Home, Self-Care Prognosis: Good Discharge Orders: Discharge Order (Routine); Ordered 03/23/22 Ordered By: Agus Castillo Pending Pending Pending: Diet Consistent Carbohydrate Diet Start SatMar 22 1259 Fentanyl (Fentanyl 100 Mcg/2 Ml Vial) 50 mcg IV Q2HP PRN; Protocol PRN Reason: Per Pain Protocol Last Admin: 03/22/22 09:28 Dose: 50 mcg Documented By: Admin: 03/22/22 05:15 Dose: 50 mcg Documented By: Admin: 03/22/22 00:13 Dose: 50 mcg Documented By: PAVEL Sodium Chloride (Sodium Chloride 0.9%) 1,000 mls @ 100 mls/hr IV .Q10H [facility] Last Admin: 03/23/22 05:33 Dose: 100 mls/hr Documented By: Infusion: 03/23/22 04:45 Dose: 100 mls/hr Documented By: Admin: 03/22/22 18:45 Dose: 100 mls/hr Documented By: Infusion: 03/22/22 18:45 Dose: 100 mls/hr Documented By: Admin: 03/22/22 09:28 Dose: 100 mls/hr Documented By: Infusion: 03/22/22 09:28 Dose: 100 mls/hr Documented By: Infusion: 03/22/22 00:13 Dose: 100 mls/hr Documented By: Infusion: 03/22/22 00:00 Dose: 0 mls/hr Documented By: Admin: 03/21/22 23:18 Dose: 100 mls/hr Documented By: MARÍA Ondansetron HCl (Ondansetron 4 Mg/2 Ml Vial) 4 mg IV Q4HP PRN PRN Reason: Nausea And Vomiting Last Admin: 03/22/22 00:13 Dose: 4 mg Documented By: PAVEL Shift Summary 03/23/22 00:52 Shift Summary by Sandy England Primary Diagnosis: SBO Registration Status: 03/21 - M/S IP Date of Surgery (if applicable): NA Pertinent Medical Dx/Issue(s): DMII, Intestinal adhesions, Post-colostomy take down, Diverticula, Anxiety, Depression Vital Signs with Trends: VSS on RA Neuro : A&OX4. Ambulation status : SBA d/t IV pole. Amb in [place] X1 Diet : CC - diabetic. PRN Meds : None Lab/Rad (abnormal results): Small bowel follow through successful Urinary Elimination (Multani out in 24H?; u.o. > 30mL/hr?): Up to toilet, 1 small BM this shift. BS active. Lines/Tubes: NS @ 100/hr into RAC Skin / wound : Abrasion R nava. Recommendations/questions for MD: Expected date of discharge: 03/23/22 Discharge Plan (needs, disposition, etc): home with Initialized on 03/23/22 00:52 - END OF NOTE
== END 2022-03-23 09:55 | disposition home or self-care (01) | DRG 390 ==
LOC: ED 20:29 → MEDSUR 23:56
PROVIDERS: ADMIT Surgery; ATTEND Surgery

== ENCOUNTER 2022-04-03 02:00 | Inpatient (IN) ==
[2022-04-03] MEDS ORDERED: IOPAMIDOL 100 ML BOTTLE IV ONE (02:01)
[2022-04-03] MEDS ORDERED: 0.9 % SODIUM CHLORIDE 1,000 ML IV ONE (02:02)
[2022-04-03] MEDS ORDERED: ONDANSETRON 4 MG/2 ML VIAL IV ONE (02:14)
[2022-04-03] MEDS ORDERED: fentaNYL 100 MCG/2 ML VIAL IV ONE (02:14)
--- NOTE | 2022-04-03 02:14 | Emergency Department Note ---
Abdominal Pain HPI General Chief Complaint: Abdominal Pain Stated Complaint: Abdominal Pain/Bowel Obstruction Time Seen by Provider: 04/03/22 02:01 Source: patient Mode of arrival: ambulatory Limitations: no limitations History of Present Illness HPI Narrative: Narrative: Patient presents ED with complaints of abdominal pain that occurred about 8:00 last night. He rates pain 9/10. He states he last ate about 5 PM last night. Last bowel movement was about 3 PM yesterday. He describes the pain as sharp and on his left side. Patient has a history of small bowel obstruction and was actually here about 2 weeks ago and the small bowel suction resolved with an NG tube placement. Patient reports nausea. He denies fever, chills, vomiting, diarrhea, dysuria, hematuria, urinary frequency, cardiac chest pain, shortness of breath. He denies any kskv-ztq-lljittd medication. Denies any other alleviating or aggravating factors. Related Data Home Medications Medication Instructions Recorded Confirmed prednisolone acetate 1 % eye 1 drp OS DAILY 07/25/15 03/29/22 drops,suspension brimonidine 0.15 % eye drops 1 gtt OS BID 11/14/15 03/29/22 brinzolamide 1 % eye 2 drp OS BID 12/24/17 03/29/22 drops,suspension (Azopt) polyethylene glycol 3350 17 17 g PO QDAY PRN Constipation 01/20/20 03/29/22 gram/dose oral powder (Miralax) atorvastatin 10 mg tablet 10 mg PO QDAY 04/17/21 03/29/22 cetirizine 10 mg tablet 10 mg PO QDAY PRN 04/17/21 03/29/22 fluticasone propionate 50 1 spray intranasal QDAY PRN 12/27/21 03/29/22 mcg/actuation nasal spray,suspension (Flonase Allergy Relief) hydrocortisone 2.5 % topical 1 applic topical BID 12/28/21 03/29/22 ointment metronidazole 0.75 % topical cream 1 applic topical QDAY 12/28/21 03/29/22 Previous Rx's Medication Instructions Recorded fluoride (sodium) 1.1 % dental 1 applic dental BID #113 grams 12/08/19 paste (Clinpro 5000) kbtffqglyl-oetsrqoooixiw-cymlmtcl 1 cap PO QDAY PRN headache #30 caps 09/15/20 50 mg-300 mg-40 mg capsule (Fioricet) naproxen 500 mg tablet 500 mg PO Q12H PRN pain #30 tabs 07/06/21 tizanidine 4 mg tablet 4 mg PO BID PRN muscle spasticity 07/06/21 #60 tabs buspirone 7.5 mg tablet 7.5 mg PO BID #180 tabs 09/20/21 escitalopram oxalate 20 mg tablet 20 mg PO QDAY #90 tabs 10/10/21 metformin 500 mg tablet,extended 1,000 mg PO BID #360 tabs 10/10/21 release 24hr tramadol 50 mg tablet 50 mg PO Q6H PRN pain #12 tabs 01/02/22 omeprazole 20 mg capsule,delayed 20 mg PO QDAY #90 caps 03/06/22 release glipizide 5 mg tablet, extended 5 mg PO QDAY #90 tabs 03/29/22 release 24 hr Allergies Allergy/AdvReac Type Severity Reaction Status Date / Time Yvgoyoj-LWK-RhO Reductase AdvReac Intermediate Myalgia Verified 04/03/22 02:04 Inhibitor [Ecuwzcv-Wtf-Lia Reductase Inhibitor] meperidine [From Demerol] AdvReac Mild Hypotension Verified 04/03/22 02:04 morphine AdvReac Mild Hallucinati Verified 04/03/22 02:04 ons Review of Systems ROS ROS Narrative: Narrative: All systems ED: reviewed and negative except as stated. [facility] Narrative Patient History Narrative: Narrative: Medical/Surgical/Family History All Active Problems (Updated 04/03/22 @ 04:06 by Aaron Wang DO) Small bowel obstruction (Acute) SBO (small bowel obstruction) (Acute) Shoulder pain, right (Acute) Ingrown toenail of both feet (Acute) Intestinal adhesions (Acute) Lower abdominal pain (Acute) Left flank pain (Acute) BPH NOS w ur obs/LUTS (Acute) Orthostatic hypotension (Acute) Aortic stenosis, mild (Acute) Pre-syncope (Acute) Medicare annual wellness visit, subsequent (Acute) Acute neck pain (Acute) Sleep difficulties (Acute) Chronic headaches (Acute) Tendinopathy of right rotator cuff (Chronic) Acute vestibular neuronitis (Acute) Generalized anxiety disorder with panic attacks (Chronic) Sinusitis, acute (Acute) Myalgia due to HMG CoA reductase inhibitor (Acute) Tension headache (Chronic) Abdominal pain (Acute) Allergic rhinitis (Acute) DM type 2 (diabetes mellitus, type 2) (Chronic) Dysmetabolic syndrome X (Chronic) Obstructive sleep apnea (Chronic) Hyperlipidemia (Chronic) Patellofemoral syndrome (Chronic) Diverticula, colon (Chronic) senior care (current) use of oral hypoglycemic drugs (Chronic) senior care (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) Metabolic Syndrome X (Chronic) Neck pain on left side (Chronic) Greater trochanteric bursitis (Chronic) Environmental allergies (Chronic) Right knee pain (Chronic) History of continuous positive airway pressure (CPAP) dependence (Chronic) Osteoarthrosis multiple sites, 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) Glaucoma (Chronic) Enlarged prostate (Chronic) Elevated LFTs (Chronic) Dizziness (Acute) Depression (Chronic) Degenerative disc disease (Chronic) Bradycardia (Chronic) Allergy (Chronic) Medical History Abdominal pain Abdominal pain Acquired absence of other specified parts of digestive tract Allergy Bowel obstruction 08/19/2013; Small bowel Bradycardia H/O Degenerative disc disease Depression Continue Lexapro 20 mg daily. We will augment treatment for anxiety symptoms with BuSpar, as above. Diverticula, colon Diverticulitis of colon Dizziness Cardiac work-up including Holter monitor last year was negative. He does not feel dizzy today, rather feels like he is going to get dizzy. Difficult to describe. Denies vertigo. He will let us know if the symptoms worsen, and he will follow up with cardiology in the next couple of weeks. Dizziness DM type 2 (diabetes mellitus, type 2) Dysfunction of eustachian tube left greater than right Dysmetabolic syndrome X Metabolic Syndrome (dysmetabolic synd x) Elevated LFTs Mild. Remote. Hepatitis panel done 07/21/12 was normal Enlarged prostate Environmental allergies Episode of confusion 2 self-limiting episodes past 2 weeks Episode of dizziness No episodes of dizziness since he saw Dr. Damian Generalized anxiety disorder with panic attacks Much improved with buspirone 7.5 mg twice daily. Continue. Continue Lexapro 20 mg daily Consider Abilify versus psychiatry referral if he obsessive/compulsive symptoms recur. 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 Started pravastatin for a few weeks recently, but stopped about 5 days ago due to myalgia. Stay off pravastatin, and likely should not try another statin ever again. Check CPK and renal panel. Nasal lesion Left sided nasal lesion, skin. 05/11/2014 Neck pain on left side Likely muscular in origin Stretching and range of motion exercises recommended. Obstipation Obstructive sleep apnea No longer using CPAP for the last few years due to losing weight and noticing that he no longer snores. His Apple Watch is telling him that his sleep quality is poor with multiple wake ups. He wakes up feeling very tired. He agrees he may need treatment for KEI again. Olecranon bursitis Osteoarthrosis multiple sites, not specified as generalized bilateral hips. Neck Patellofemoral syndrome Personal history of nicotine dependence Stop smoking over 40 years ago. Prostatitis Pruritus recurring Psoriasis Right knee pain suspect patellofemoral syndrome. Shoulder pain, right Small bowel obstruction due to adhesions resolved at present. Tennis elbow Tension headache Multiple days per week MR brain negative Massage therapy not as helpful Trial of Fioricet for bad days as needed Thoracic back pain Right posterior lower thoracic pain; 03/26/2014 TIA (transient ischemic attack) Remote Surgical History Colostomy status History of cataract surgery Left. Right 05/30 History of cholecystectomy 09/05/12 History of colectomy 01/25/2013; Sigmoid colectomy for diverticular disease with subsequent colostomy and takedown History of colonoscopy 09/21/2013 normal post sigmoid colectomy surgery History of colostomy 04/02/2003 History of esophagogastroduodenoscopy (EGD) 03/13/16-EGJ inflammmation History of eye surgery Laser trabeuloplasty. 07/28/12 History of hernia surgery 2009; abdominal hernia repair History of surgery 06/16/04. Dilation of Anastomosis. Multiple History of surgery 06/14/03 - Stoma revision History of surgery 02/22/04 colostomy takedown and reanastomosis. History of tonsillectomy 1955 History of vasectomy Family History Grandfather Malignant neoplasm of urinary bladder Paternal Father , at 94 of unknown cause Mother , in late 80s of unknown cause Unknown Acute myocardial infarction FH+ for early CAD Social History Smoking Status: Never smoker Alcohol Intake Frequency: holiday/special occasion only Substance Use: does not use Exam Narrative Narrative: Narrative: General Limitations: no limitations General appearance: Present alert ENT ENT: Present normal oropharynx and mucous membranes moist Respiratory Respiratory: Present normal lung sounds bilaterally; Absent respiratory distress Cardiovascular Cardiovascular: Present regular rate and normal rhythm Adbominal Abdominal: Present soft, tenderness (Generalized, left lower quadrant worse) and diminished bowel sounds Back Back: Absent CVA tenderness (R) or CVA tenderness (L) Neurological Neurological: Present oriented X3 and normal gait Psychiatric Psychiatric: Present normal affect and normal mood Skin Skin: Present warm (WNL) and normal color Course Course Course Narrative: Patient was evaluated for abdominal pain. Labs returned unremarkable with exception of elevated bilirubin. Patient was given IV fluids and fentanyl along with some Zofran. CT abdomen pelvis obtained with image reviewed myself which shows partial small bowel obstruction recurrent for patient. NG tube was successfully placed, confirmed by abdominal x-ray. Case discussed with surgeon, Dr. Lozano, who has graciously excepted patient as admission to the hospital. Reevaluation(s) Reevaluation #1: Patient ander hemodynamic stable. No new complaints at this time. Time: 03:11 Consultations Consultation #1: Case discussed with Dr. Lozano, general surgery, who is graciously excepted patient as admission to the hospital Time: 06:33 Vital Signs Vital signs: Vital Signs Temperature 97.2 F 04/03/22 02:01 Pulse Rate 57 L 04/03/22 02:01 Respiratory Rate 16 04/03/22 02:01 Blood Pressure 170/89 04/03/22 02:01 Pulse Oximetry (%) 99 04/03/22 02:01 Oxygen Delivery Method 04/03/22 02:01 Temperature 97.2 F 04/03/22 02:01 Pulse Rate 58 L 04/03/22 04:11 Respiratory Rate 16 04/03/22 02:01 Blood Pressure 161/85 04/03/22 04:01 Pulse Oximetry (%) 95 04/03/22 04:11 Oxygen Delivery Method 04/03/22 02:01 [facility] MDM Narrative Medical decision making narrative: Narrative: Differential Diagnosis Differential Diagnosis: Small bowel source, diverticulitis Medical Records Medical records reviewed: Yes I reviewed the patient's medical records. Lab Data Lab results reviewed: Yes I reviewed the patient's lab results. Result diagrams: 04/03/22 02:18 04/03/22 02:18 Labs: Lab Results 04/03/22 04/03/22 04/03/22 Range/Units 02:18 02:18 02:20 WBC 10.7 (4.5-11.0) K/mcL RBC 5.17 (4.63-6.08) M/mcL Hgb 17.1 (13.7-17.5) g/dL Hct 48.2 (40.1-51.0) % POC Hct 49.0 (41-55) MCV 93.2 (80.0-100.0) fL MCH 33.1 (26.0-34.0) pg MCHC 35.5 (31.0-36.0) g/dL RDW 12.1 (11.5-14.5) % Plt Count 199 (140-440) K/mcL MPV 9.7 (7.4-10.4) fL Immature Gran % (Auto) 0.4 (0.0-0.5) % Neut % (Auto) 74.3 (38.0-78.0) % Lymph % (Auto) 17.8 (15.5-49.0) % [place] % (Auto) 5.8 (1.0-12.0) % Eos % (Auto) 1.3 (0.0-7.0) % Baso % (Auto) 0.4 (0.0-2.0) % Lymph # (Auto) 1.90 (1.50-4.80) K/mcL [place] # (Auto) 0.62 (0.10-0.90) K/mcL Eos # (Auto) 0.14 (0.00-0.70) K/mcL Baso # (Auto) 0.04 (0.00-0.30) K/mcL Immature Gran # 0.04 (0.00-0.05) K/mcl Absolute Neutrophils 7.98 (1.80-8.00) K/mcL POC Sodium 140 (133-145) Sodium 139 (133-145) mmol/L POC Potassium 3.9 (3.3-5.1) Potassium 3.9 (3.3-5.1) mmol/L POC Chloride 102 (96-108) Chloride 101 (96-108) mmol/L Carbon Dioxide 28 (22-30) mmol/L POC Total CO2 28.0 (22-30) Anion Gap 10.0 (8.0-16.0) POC BUN 17 (6-20) BUN 16 (8-23) mg/dL Creatinine 0.8 (0.7-1.2) mg/dL POC Creatinine 0.8 (0.6-1.2) GFR Calculation 87 Glucose 189 H (70-105) mg/dL POC Glucose 191 H (70-105) Calcium 10.0 (8.6-10.4) mg/dL POC WB Ioniz Calcium 1.22 (1.16-1.32) Total Bilirubin 1.6 H (0.1-1.0) mg/dL AST 18 (<40) U/L ALT 25 (<40) U/L Alkaline Phosphatase 82 (39-117) U/L Total Protein 7.1 (5.9-8.4) gm/dL Albumin 4.3 (3.2-5.2) gm/dL Globulin 2.8 (2.2-3.7) gm/dL Albumin/Globulin Ratio 1.5 (1.0-2.3) Amylase 65 (28-100) U/L Lipase 23 (7-60) U/L Radiology Data Radiology results reviewed: Yes I reviewed the patient's radiology results. Radiology results narrative: CT abdomen pelvis obtained with image reviewed myself, agree with radiologist interpretation Abdominal x-ray obtained with images reviewed myself which confirms NG tube placement Core Measures AMI Core Measures Followed: Yes Discharge Plan Patient/Caregiver Discharge Instructions Pt seen by PHILOS[employer]HY [employer] MEMBER/PA only: No Clinical Impression: Small bowel obstruction Patient Disposition: Xfer As Outpt/Obs ([facility]) Condition: Fair Follow up with: Steve Pendleton DO [Primary Care Provider] - Prescriptions: No Action naproxen 500 mg tablet 500 mg PO Q12H PRN (Reason: pain) Qty: 30 0RF Rx Instructions: administer with food or milk tizanidine 4 mg tablet 4 mg PO BID PRN (Reason: muscle spasticity) Qty: 60 0RF buspirone 7.5 mg tablet 7.5 mg PO BID Qty: 180 1RF escitalopram oxalate 20 mg tablet 20 mg PO QDAY Qty: 90 3RF metformin 500 mg tablet extended release 24hr 1,000 mg PO BID Qty: 360 3RF omeprazole 20 mg capsule,delayed release(DR/EC) 20 mg PO QDAY Qty: 90 3RF prednisolone acetate 1 % drops,suspension 1 drp OS DAILY Rx Instructions: 1 drp OPHTHALMIC OS QDay brinzolamide [Azopt] 1 % drops,suspension 2 drp OS BID Label Comments: Each eye Clinpro 5000 1.1 % paste 1 applic DENTAL BID Qty: 113 0RF polyethylene glycol 3350 [Miralax] 17 gram/dose powder 17 g PO QDAY PRN (Reason: Constipation) ramrqulphc-bgtshckganfsv-fbmc [Fioricet] 50-300-40 mg capsule 1 cap PO QDAY PRN (Reason: headache) Qty: 30 0RF Rx Instructions: do not take after 3 pm, contains caffeine atorvastatin 10 mg tablet 10 mg PO QDAY Label Comments: TAKE 1 TABLET BY MOUTH ONCE DAILY cetirizine 10 mg tablet 10 mg PO QDAY PRN fluticasone propionate [Flonase Allergy Relief] 50 mcg/actuation spray,suspension 1 spray INTRANASAL QDAY PRN Rx Instructions: administer into each nostril metronidazole 0.75 % cream 1 applic topical QDAY hydrocortisone 2.5 % ointment 1 applic topical BID glipizide 5 mg tablet extended release 24 hr 5 mg PO QDAY Qty: 90 3RF tramadol 50 mg tablet 50 mg PO Q6H PRN (Reason: pain) Qty: 12 0RF brimonidine 1 GTT bottle 1 gtt OS BID
[2022-04-03 02:24] LABS: POC Calcium, Ionized 1.22 (1.16-1.32); POC Creatinine 0.8 (0.6-1.2); POC Potassium 3.9 (3.3-5.1)
[2022-04-03 02:51] LABS: Basophils # (Auto) 0.04 K/mcL (0.00-0.30); Basophils % (Auto) 0.4 % (0.0-2.0); Eosinophils # (Auto) 0.14 K/mcL (0.00-0.70); Eosinophils % (Auto) 1.3 % (0.0-7.0); Hematocrit 48.2 % (40.1-51.0); Hemoglobin 17.1 g/dL (13.7-17.5); Lymphocytes % (Auto) 17.8 % (15.5-49.0); Mean Cell Volume 93.2 fL (80.0-100.0); Mean Corpuscular HGB Conc 35.5 g/dL (31.0-36.0); Mean Platelet Volume 9.7 fL (7.4-10.4); Monocytes # (Auto) 0.62 K/mcL (0.10-0.90); Monocytes % (Auto) 5.8 % (1.0-12.0); Neutrophils % (Auto) 74.3 % (38.0-78.0); Platelet Count 199 K/mcL (140-440); RBC 5.17 M/mcL (4.63-6.08); Red Cell Distribution Width 12.1 % (11.5-14.5); WBC 10.7 K/mcL (4.5-11.0)
[2022-04-03 03:13] LABS: ALT/SGPT 25 U/L (<40); AST/SGOT 18 U/L (<40); Albumin 4.3 gm/dL (3.2-5.2); Albumin/Globulin Ratio 1.5 (1.0-2.3); Alkaline Phosphatase 82 U/L (39-117); Amylase 65 U/L (28-100); Bilirubin,Total 1.6 mg/dL (0.1-1.0); Blood Urea Nitrogen 16 mg/dL (8-23); Carbon Dioxide 28 mmol/L (22-30); Chloride 101 mmol/L (96-108); Globulin 2.8 gm/dL (2.2-3.7); Glomerular Filtration Rate 87; Glucose 189 mg/dL (70-105)
--- NOTE | 2022-04-03 03:58 | Cat Scan Report ---
CLINICAL INFORMATION: Abdominal pain. History of bowel obstruction COMPARISON: Abdomen and pelvic CT 09/15/2019 and 03/21/2022 TECHNIQUE: Following enteric contrast, 80 cc of Isovue-370 were injected intravenously, and 60 seconds later, 0.625 mm helical slices were obtained from the mid heart through the subtrochanteric regions. Following reconstruction, 2.5 mm sagittal, coronal and axial reformatted images were processed and reviewed at bone, lung and soft tissue windows. Five minutes later, 0.625 mm helical slices were obtained from the mid heart through the kidneys and viewed at soft tissue windows.The exam was performed using radiation dose optimization techniques including, but not limited to, automated exposure control, adjustment of the mA and/or kV according to patient size and use of iterative reconstruction technique. FINDINGS: The lung bases are clear. No effusions. The visualized heart is mildly enlarged with scattered calcific plaque in the coronary arteries and calcification in the aortic valve.. Abdominal images show the gallbladder is surgically absent. Common bile ducts are slightly dilated, 8 mm, compatible post cholecystectomy state. This is unchanged. There is mild fatty change within the liver, but no significant focal hepatic lesions. The pancreas and both adrenal glands are unremarkable. 16 mm simple cyst anterior mid right kidney with adjacent focal cortical scarring is again noted. No significant renal abnormality. Transverse dimension of the spleen is slightly enlarged, 14 cm, but this has been stable since CTs dating back nearly 3 years: 2018. It is likely insignificant. There is no free air, free fluid or adenopathy Pelvic images show mild, yet stable prostate enlargement (transverse dimension 5.2 cm) leak. Urinary bladder is grossly normal. Subtotal colectomy changes appreciated. The rectosigmoid colon is been retained. There is a coloenteric anastomosis in the pelvis. Recurrent small bowel obstruction is noted: a few loops of moderately dilated jejunum in the left mid abdomen with fluid in the intervening mesentery compatible with third spacing. Transition point is best seen on axial image 100 and coronal image 27. There are likely recurrent adhesions or stricture in this region. Stomach and duodenum is not, yet, dilated. The distal small bowel is decompressed. Bone windows show no significant osseous abnormality degeneration seen in the lumbar spine. IMPRESSION: High-grade recurrent partial small bowel obstruction in the mid jejunum due to adhesions or stricture. Small amount of fluid in the adjacent mesenteric cavity suggests early third spacing. No free air to suggest perforation. Subtotal colectomy changes. Mild prostate enlargement stable Borderline splenic enlargement which is been stable since 2019 and likely clinically insignificant Interpreted and Authenticated by: Steve Elias 04/03/22
[2022-04-03] MEDS ORDERED: fentaNYL 100 MCG/2 ML VIAL IV PRN (04:04)
[2022-04-03] MEDS ORDERED: ONDANSETRON 4 MG/2 ML VIAL IV PRN ×2 (04:04→09:08)
--- NOTE | 2022-04-03 05:16 | XRay Report ---
CLINICAL INFORMATION: ng tube placement COMPARISON: None. FINDINGS: NG tube overlies the gastric body. The known loop of moderately dilated jejunum, in the left mid abdomen, is not well seen on this particular exam. No free air. IMPRESSION: NG tube overlying the gastric body. Known partial small bowel obstruction in the mid jejunum from accompanying CT not well seen on plain film Interpreted and Authenticated by: Steve Elias 04/03/22
--- NOTE | 2022-04-03 09:06 | General Surgery Consult Note ---
HPI Data of Consult Patient: known to practice within the last 3 years Consult date: 04/03/22 Requesting physician: Aaron Wang Primary Care Provider: Steve Pendleton DO Consult Narrative Patient Information: Note initiated : 04/03/22 at 8:50 am Service Date, if different from initiated Date: [] Patient: Steve Cavazos 76 y/o M admitted on for Abdominal Pain/Bowel Obstruction. Chief Complaint: [Abdominal Pain] Steve is seen in consultation today after presenting to the ER with recurrence of abdominal pain now several weeks out from a recent hospitalization for an Acute Small Bowel Obstruction presumed adhesion related. He had emergent operative intervention for Sigmoid Diverticulitis 10+ years ago that resulted in staged operative interventions including Stomal diversion followed by stoma takedown. Since then he has had several bouts of SBO managed non operatively with the most recent one several weeks ago but prior to that had not had any such episodes for several years. He has had a CT scan and an NGT placed and feels much improved at this time with full resolution of his abdominal pain. His overall health is quite good and he denies any major cardiopulmonary issues. He has not had CAD, stents or other issues and is not on any oral anticoagulants. He denies home O2 or other concerns. Reason for consult: Small Bowel Obstruction cc:: CC: Review of Systems All systems: reviewed and no additional remarkable complaints except as stated Constitutional Additional comments: has felt well, no changes or issues EENT Eyes: Absent change in vision Ears: Absent decreased hearing Additional comments: no changes or other issues Cardiovascular Cardiovascular: Absent chest pain at rest or chest pain with activity Respiratory Additional comments: no cough or SOB Gastrointestinal Additional comments: see HPI Genitourinary Additional comments: no hematuria Integumentary Additional comments: no skin changes Neurological Additional comments: no changes Hematologic/Lymphatic Hematologic/Lymphatic: Absent lymphadenopathy PFSH PFSH All Active Problems (Updated 04/03/22 @ 04:06 by Aaron Wang DO) Small bowel obstruction (Acute) SBO (small bowel obstruction) (Acute) Shoulder pain, right (Acute) Ingrown toenail of both feet (Acute) Intestinal adhesions (Acute) Lower abdominal pain (Acute) Left flank pain (Acute) BPH NOS w ur obs/LUTS (Acute) Orthostatic hypotension (Acute) Aortic stenosis, mild (Acute) Pre-syncope (Acute) Medicare annual wellness visit, subsequent (Acute) Acute neck pain (Acute) Sleep difficulties (Acute) Chronic headaches (Acute) Tendinopathy of right rotator cuff (Chronic) Acute vestibular neuronitis (Acute) Generalized anxiety disorder with panic attacks (Chronic) Sinusitis, acute (Acute) Myalgia due to HMG CoA reductase inhibitor (Acute) Tension headache (Chronic) Abdominal pain (Acute) Allergic rhinitis (Acute) DM type 2 (diabetes mellitus, type 2) (Chronic) Dysmetabolic syndrome X (Chronic) Obstructive sleep apnea (Chronic) Hyperlipidemia (Chronic) Patellofemoral syndrome (Chronic) Diverticula, colon (Chronic) 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 manager (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) use of oral hypoglycemic drugs (Chronic) terminal manager (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) Metabolic Syndrome X (Chronic) Neck pain on left side (Chronic) Greater trochanteric bursitis (Chronic) Environmental allergies (Chronic) Right knee pain (Chronic) History of continuous positive airway pressure (CPAP) dependence (Chronic) Osteoarthrosis multiple sites, 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) Glaucoma (Chronic) Enlarged prostate (Chronic) Elevated LFTs (Chronic) Dizziness (Acute) Depression (Chronic) Degenerative disc disease (Chronic) Bradycardia (Chronic) Allergy (Chronic) Medical History Abdominal pain Abdominal pain Acquired absence of other specified parts of digestive tract Allergy Bowel obstruction 08/19/2013; Small bowel Bradycardia H/O Degenerative disc disease Depression Continue Lexapro 20 mg daily. We will augment treatment for anxiety symptoms with BuSpar, as above. Diverticula, colon Diverticulitis of colon Dizziness Cardiac work-up including Holter monitor last year was negative. He does not feel dizzy today, rather feels like he is going to get dizzy. Difficult to describe. Denies vertigo. He will let us know if the symptoms worsen, and he will follow up with cardiology in the next couple of weeks. Dizziness DM type 2 (diabetes mellitus, type 2) Dysfunction of eustachian tube left greater than right Dysmetabolic syndrome X Metabolic Syndrome (dysmetabolic synd x) Elevated LFTs Mild. Remote. Hepatitis panel done 07/21/12 was normal Enlarged prostate Environmental allergies Episode of confusion 2 self-limiting episodes past 2 weeks Episode of dizziness No episodes of dizziness since he saw Dr. Damian Generalized anxiety disorder with panic attacks Much improved with buspirone 7.5 mg twice daily. Continue. Continue Lexapro 20 mg daily Consider Abilify versus psychiatry referral if he obsessive/compulsive symptoms recur. 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 Started pravastatin for a few weeks recently, but stopped about 5 days ago due to myalgia. Stay off pravastatin, and likely should not try another statin ever again. Check CPK and renal panel. Nasal lesion Left sided nasal lesion, skin. 05/11/2014 Neck pain on left side Likely muscular in origin Stretching and range of motion exercises recommended. Obstipation Obstructive sleep apnea No longer using CPAP for the last few years due to losing weight and noticing that he no longer snores. His Apple Watch is telling him that his sleep quality is poor with multiple wake ups. He wakes up feeling very tired. He agrees he may need treatment for KEI again. Olecranon bursitis Osteoarthrosis multiple sites, not specified as generalized bilateral hips. Neck Patellofemoral syndrome Personal history of nicotine dependence Stop smoking over 40 years ago. Prostatitis Pruritus recurring Psoriasis Right knee pain suspect patellofemoral syndrome. Shoulder pain, right Small bowel obstruction due to adhesions resolved at present. Tennis elbow Tension headache Multiple days per week MR brain negative Massage therapy not as helpful Trial of Fioricet for bad days as needed Thoracic back pain Right posterior lower thoracic pain; 03/26/2014 TIA (transient ischemic attack) Remote Surgical History Colostomy status History of cataract surgery Left. Right 05/30 History of cholecystectomy 09/05/12 History of colectomy 01/25/2013; Sigmoid colectomy for diverticular disease with subsequent colostomy and takedown History of colonoscopy 09/21/2013 normal post sigmoid colectomy surgery History of colostomy 04/02/2003 History of esophagogastroduodenoscopy (EGD) 03/13/16-EGJ inflammmation History of eye surgery Laser trabeuloplasty. 07/28/12 History of hernia surgery 2009; abdominal hernia repair History of surgery 06/16/04. Dilation of Anastomosis. Multiple History of surgery 06/14/03 - Stoma revision History of surgery 02/22/04 colostomy takedown and reanastomosis. 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 smoking status: Former smoker quit date: 02/14/77 alcohol intake frequency: holiday/special occasion only substance use type: does not use MEDS/ALLERGIES Home Medications and Allergies Home Medications Medication Instructions Recorded Confirmed Type prednisolone acetate 1 % eye 1 drp OS DAILY 07/25/15 04/03/22 History drops,suspension brimonidine 0.15 % eye drops 1 gtt OS BID 11/14/15 04/03/22 History brinzolamide 1 % eye 2 drp OS BID 12/24/17 04/03/22 History drops,suspension (Azopt) fluoride (sodium) 1.1 % dental 1 applic dental BID #113 grams 12/08/19 04/03/22 Rx paste (Clinpro 5000) hlrirysfaq-hmuwmnjekhnpl-wiacymyw 1 cap PO QDAY PRN headache #30 caps 09/15/20 04/03/22 Rx 50 mg-300 mg-40 mg capsule (Fioricet) atorvastatin 10 mg tablet 10 mg PO QDAY 04/17/21 04/03/22 History cetirizine 10 mg tablet 10 mg PO QDAY PRN Allergy Symptoms 04/17/21 04/03/22 History naproxen 500 mg tablet 500 mg PO Q12H PRN pain #30 tabs 07/06/21 04/03/22 Rx tizanidine 4 mg tablet 4 mg PO BID PRN muscle spasticity 07/06/21 04/03/22 Rx #60 tabs buspirone 7.5 mg tablet 7.5 mg PO BID #180 tabs 09/20/21 04/03/22 Rx escitalopram oxalate 20 mg tablet 20 mg PO QDAY #90 tabs 10/10/21 04/03/22 Rx metformin 500 mg tablet,extended 1,000 mg PO BID #360 tabs 10/10/21 04/03/22 Rx release 24hr fluticasone propionate 50 1 spray intranasal QDAY PRN 12/27/21 04/03/22 History mcg/actuation nasal Allergy Symptoms spray,suspension (Flonase Allergy Relief) hydrocortisone 2.5 % topical 1 applic topical BID 12/28/21 04/03/22 History ointment metronidazole 0.75 % topical cream 1 applic topical QDAY 12/28/21 04/03/22 History tramadol 50 mg tablet 50 mg PO Q6H PRN pain #12 tabs 01/02/22 04/03/22 Rx omeprazole 20 mg capsule,delayed 20 mg PO QDAY #90 caps 03/06/22 04/03/22 Rx release glipizide 5 mg tablet, extended 5 mg PO QDAY #90 tabs 03/29/22 04/03/22 Rx release 24 hr Allergies Allergy/AdvReac Type Severity Reaction Status Date / Time Cncweqv-RUN-YuW Reductase AdvReac Intermediate Myalgia Verified 04/03/22 02:04 Inhibitor [Livcfry-Szk-Aiw Reductase Inhibitor] meperidine [From Demerol] AdvReac Mild Hypotension Verified 04/03/22 02:04 morphine AdvReac Mild Hallucinati Verified 04/03/22 02:04 ons Physical Examination Vital Signs Vital signs: Temp Pulse Resp BP Pulse Ox O2 Del Method 97.2 F 88 16 136/86 96 04/03/22 02:01 04/03/22 08:07 04/03/22 02:01 04/03/22 08:01 04/03/22 08:07 04/03/22 02:01 General physical appearance General physical exam: other (looks well, NAD ) Eyes Eye exam: normal ocular movement ENT ENT exam: normal pinna Head Head exam IM: Present atraumatic, normal inspection and normocephalic Neck Neck exam: trachea midline and no lymphadenopathy Cardiovascular Cardiovascular exam IM: Present RRR Respiratory Respiratory exam: other (non labored, normal effort ) Abdomen Abdomen: Present soft and non tender Genitourinary Genitourinary (Male): Present other (no CVA tenderness ) Integumentary Integumentary: Present other (normal appearing intact skin ) Neurologic Neurologic: Present other (grossly intact ) Psychiatric Psychiatric: Present oriented to time, oriented to person and oriented to place Results Labs Result diagrams: 04/03/22 02:18 04/03/22 02:18 Labs: Abnormal lab results 04/03/22 04/03/22 Range/Units 02:18 02:20 Glucose 189 H (70-105) mg/dL POC Glucose 191 H (70-105) Total Bilirubin 1.6 H (0.1-1.0) mg/dL Diabetes panel 04/03/22 Range/Units 02:18 Sodium 139 (133-145) mmol/L Potassium 3.9 (3.3-5.1) mmol/L Chloride 101 (96-108) mmol/L Carbon Dioxide 28 (22-30) mmol/L BUN 16 (8-23) mg/dL Creatinine 0.8 (0.7-1.2) mg/dL Glucose 189 H (70-105) mg/dL Calcium 10.0 (8.6-10.4) mg/dL AST 18 (<40) U/L ALT 25 (<40) U/L Alkaline Phosphatase 82 (39-117) U/L Total Protein 7.1 (5.9-8.4) gm/dL Albumin 4.3 (3.2-5.2) gm/dL Calcium panel 04/03/22 Range/Units 02:18 Calcium 10.0 (8.6-10.4) mg/dL Albumin 4.3 (3.2-5.2) gm/dL Pituitary panel 04/03/22 Range/Units 02:18 Sodium 139 (133-145) mmol/L Potassium 3.9 (3.3-5.1) mmol/L Chloride 101 (96-108) mmol/L Carbon Dioxide 28 (22-30) mmol/L BUN 16 (8-23) mg/dL Creatinine 0.8 (0.7-1.2) mg/dL Glucose 189 H (70-105) mg/dL Calcium 10.0 (8.6-10.4) mg/dL Adrenal panel 07/19/22 Range/Units 02:18 Sodium 139 (133-145) mmol/L Potassium 3.9 (3.3-5.1) mmol/L Chloride 101 (96-108) mmol/L Carbon Dioxide 28 (22-30) mmol/L BUN 16 (8-23) mg/dL Creatinine 0.8 (0.7-1.2) mg/dL Glucose 189 H (70-105) mg/dL Calcium 10.0 (8.6-10.4) mg/dL Total Bilirubin 1.6 H (0.1-1.0) mg/dL AST 18 (<40) U/L ALT 25 (<40) U/L Alkaline Phosphatase 82 (39-117) U/L Total Protein 7.1 (5.9-8.4) gm/dL Albumin 4.3 (3.2-5.2) gm/dL All other labs normal. A/P Assessment and plan (1) Small bowel obstruction: Assessment and plan: Adhesion Related SBO Agree with admission with plan for NGT decompression, IVFs, bowel rest, and probable SBFT tomorrow to document any evidence of residual obstruction Issues are discussed at length including possible need for operative intervention along with planned conservative measures and observational management Status: Acute Time Spent With Patient Time: Total time spent is greater than 50% in coordination of care (as documented) at patient's floor/unit and/or counseling patient:
[2022-04-03] MEDS: HYDROmorphone 0.5 MG/0.5 ML SYRINGE IV PRN ×3 (10:28→21:51)
[2022-04-03] MEDS: DEXTROSE 5%-LR 1,000 ML IV SCH ×2 (10:28→21:01)
[2022-04-03] MEDS ORDERED: DEXTROSE 50% 50 ML VIAL IV PRN (12:42)
[2022-04-03] MEDS ORDERED: DEXTROSE 31 GM ORAL.SUSP PO PRN (12:42)
[2022-04-03] MEDS: 0.9 % SODIUM CHLORIDE 10 ML SYRINGE IV SCH ×2 (14:24→21:54)
[2022-04-03] MEDS ORDERED: INSULIN LISPRO 1 UNIT/0.01 ML UNIT SQ SCH (17:00)
[2022-04-03] MEDS: INSULIN LISPRO 1 UNIT/0.01 ML UNIT SQ SCH (17:07)
[2022-04-04] MEDS: INSULIN LISPRO 1 UNIT/0.01 ML UNIT SQ SCH ×5 (01:46→23:15)
[2022-04-04] MEDS: HYDROmorphone 0.5 MG/0.5 ML SYRINGE IV PRN (01:49)
[2022-04-04] MEDS: DEXTROSE 5%-LR 1,000 ML IV SCH ×2 (05:33→14:29)
[2022-04-04] MEDS: 0.9 % SODIUM CHLORIDE 10 ML SYRINGE IV SCH ×3 (05:42→20:16)
[2022-04-04 06:40] LABS: Hematocrit 43.5 % (40.1-51.0); Mean Cell Volume 95.6 fL (80.0-100.0); Mean Corpuscular HGB Conc 34.5 g/dL (31.0-36.0); Mean Platelet Volume 9.7 fL (7.4-10.4); Platelet Count 185 K/mcL (140-440); RBC 4.55 M/mcL (4.63-6.08); Red Cell Distribution Width 12.5 % (11.5-14.5); WBC 7.4 K/mcL (4.5-11.0)
[2022-04-04 07:01] LABS: Blood Urea Nitrogen 11 mg/dL (8-23); Calcium 8.6 mg/dL (8.6-10.4); Carbon Dioxide 27 mmol/L (22-30); Chloride 105 mmol/L (96-108); Glomerular Filtration Rate 92; Glucose 180 mg/dL (70-105)
[2022-04-04] MEDS: ACETAMINOPHEN 650 MG/65 ML BAG IV PRN ×2 (09:06→20:12)
[2022-04-04] MEDS: prednisoLONE 1% OPHTH DROPS 1ML BOTTLE OS SCH (09:20)
--- NOTE | 2022-04-04 09:21 | XRay Report ---
CLINICAL INFORMATION: Eval sbo COMPARISON: 04/03/2022 FINDINGS: NG tube tip overlies the gastric fundus. The GI tract is almost totally decompressed with scattered small amounts of gas seen within the small and large bowel. No free air, soft tissue mass or pathologic calcification. IMPRESSION: Decompressed small large bowel. No evidence of small bowel obstruction Interpreted and Authenticated by: Steve Elias 04/04/22
[2022-04-05] MEDS: DEXTROSE 5%-LR 1,000 ML IV SCH ×2 (01:12→12:20)
[2022-04-05] MEDS: 0.9 % SODIUM CHLORIDE 10 ML SYRINGE IV SCH ×3 (04:13→20:17)
[2022-04-05] MEDS: INSULIN LISPRO 1 UNIT/0.01 ML UNIT SQ SCH ×4 (05:35→23:44)
[2022-04-05 07:03] LABS: Blood Urea Nitrogen 7 mg/dL (8-23); Calcium 9.3 mg/dL (8.6-10.4); Carbon Dioxide 26 mmol/L (22-30); Chloride 104 mmol/L (96-108); Glomerular Filtration Rate 92; Glucose 187 mg/dL (70-105)
[2022-04-05] MEDS: ACETAMINOPHEN 650 MG/65 ML BAG IV PRN (08:25)
--- NOTE | 2022-04-05 10:11 | XRay Report ---
CLINICAL INFORMATION: Eval SBO COMPARISON: None. FINDINGS: NG tube overlies the gastric body. The GI tract remains moderately decompressed with scattered amounts of gas in the stomach small large bowel. No evidence recurrent small bowel obstruction. There is no free air, soft tissue mass, organomegaly or pathologic calcification. IMPRESSION: No evidence of small bowel obstruction on the basis of plain film. Consider small bowel follow-through as a physiologic test Interpreted and Authenticated by: Steve Elias 04/05/22
[2022-04-05] MEDS: prednisoLONE 1% OPHTH DROPS 1ML BOTTLE OS SCH (10:44)
--- NOTE | 2022-04-05 11:03 | General Surgery Progress Note ---
SUBJECTIVE Subjective Patient information: Note initiated : 04/05/22 at 10:59 am Service Date, if different from initiated Date: [] Patient: Steve Cavazos 76 y/o M admitted on 04/03/22 for Abdominal Pain/Bowel Obstruction. Chief Complaint: [] Severe NGT irritation, passing lots of gas and some stool. Has NGT clamped, no nausea, pain or emesis. Constitutional Vitals: Vital Signs Temp Pulse Resp BP Pulse Ox O2 Del Method 98.6 F 61 18 133/79 97 04/05/22 07:20 04/05/22 07:20 04/05/22 07:20 04/05/22 07:20 04/05/22 08:10 04/05/22 08:10 Period Temp Pulse Resp BP Sys/Stewart Pulse Ox O2 Del Method O2 Flow Rate Last 24 Hr 97.7 F-99.3 F 57-80 12-18 120-140/74-79 94-97 Room Air-Room Air Intake and Output 04/04/22 04/05/22 04/05/22 21:59 05:59 13:59 Intake Total 65 1050 65 Output Total 1275 1225 575 Balance -1210 175 -510 Weight 167 lb 4.8 oz Intake & Output: Intake & Output 04/04/22 04/05/22 04/05/22 21:59 05:59 13:59 Intake Total 65 1050 65 Output Total 1275 1225 575 Balance -1210 -175 -510 Weight 167 lb 4.8 oz Intake: IV 65 1000 65 Dextrose 5%-Lactated Ringers 1, 1000 000 ml @ 100 mls/hr IV .Q10H [facility] Rx#:[id number] Oral 50 Tube Feeding 0 Output: Gastric Drainage 50 25 Right Nare 50 25 Void Amount 1220 1200 575 Other: Meal Breakfast Percent of Meal Consumed 100% Feeding Ability Independent Urine Appearance Clear Clear Urine Color Bright Yellow Bright Yellow Urine Odor Normal Stool Size Large Stool Color Brown Stool Consistency Formed # Bowel Movements 1 Exam: Looks well, nontoxic Respiratory Additional comments: non labored, normal effort Cardiovascular Cardiovascular exam: Present RRR GI/Abdominal Additional comments: soft, non tender A/P Assessment and plan (1) Small bowel obstruction: Assessment and plan: Clinically resolved SBO Doing Well NGT Removed at bedside Start Clears Status: Acute Time Spent With Patient Time: Total time spent is greater than 50% in coordination of care (as documented) at patient's floor/unit and/or counseling patient:
[2022-04-05] MEDS ORDERED: CETIRIZINE 10 MG TABLET PO PRN (11:06)
[2022-04-05] MEDS ORDERED: ACETAMINOPHEN PO PRN (11:17)
[2022-04-05] MEDS ORDERED: BUTALBITAL PO PRN (11:17)
[2022-04-05] MEDS ORDERED: CAFFEINE PO PRN (11:17)
[2022-04-05] MEDS: busPIRone 15 MG TABLET PO SCH (20:18)
[2022-04-05] MEDS ORDERED: FLUORIDE SODIUM DENTAL SCH (21:00)
[2022-04-06] MEDS: DEXTROSE 5%-LR 1,000 ML IV SCH ×2 (01:39→13:08)
[2022-04-06] MEDS: 0.9 % SODIUM CHLORIDE 10 ML SYRINGE IV SCH ×2 (05:15→13:18)
[2022-04-06] MEDS ORDERED: OMEPRAZOLE 20 MG CAPSULE PO SCH (07:30)
[2022-04-06] MEDS: INSULIN LISPRO 1 UNIT/0.01 ML UNIT SQ SCH ×2 (07:39→13:04)
[2022-04-06] MEDS ORDERED: ATORVASTATIN 10 MG TABLET PO SCH (09:00)
[2022-04-06] MEDS: prednisoLONE 1% OPHTH DROPS 1ML BOTTLE OS SCH (10:19)
[2022-04-06] MEDS: busPIRone 15 MG TABLET PO SCH (10:21)
--- NOTE | 2022-04-06 11:25 | General Surgery Progress Note ---
SUBJECTIVE Subjective Patient information: Note initiated : 04/06/22 at 11:21 am Service Date, if different from initiated Date: [] Patient: Steve Cavazos 76 y/o M admitted on 04/03/22 for Abdominal Pain/Bowel Obstruction. Chief Complaint: [] Doing well, no clinical issues of residual obstruction, tolerating diet with good bowel function Constitutional Vitals: Vital Signs Temp Pulse Resp BP Pulse Ox O2 Del Method 97.9 F 65 17 113/69 95 04/06/22 11:13 04/06/22 11:13 04/06/22 11:13 04/06/22 11:13 04/06/22 11:13 04/06/22 11:13 Period Temp Pulse Resp BP Sys/Stewart Pulse Ox O2 Del Method O2 Flow Rate Last 24 Hr 97.6 F-99.5 F 59-75 16-20 107-125/68-81 95-100 Room Air-Room Air Intake and Output 04/05/22 04/06/22 04/06/22 21:59 05:59 13:59 Intake Total 472 1224 Output Total 1175 525 Balance -703 699 Weight 181 lb 6.4 oz Intake & Output: Intake & Output 04/05/22 04/06/22 04/06/22 21:59 05:59 13:59 Intake Total 472 1224 Output Total 1175 525 Balance -703 699 Weight 181 lb 6.4 oz Intake: IV 999 Dextrose 5%-Lactated Ringers 1, 999 000 ml @ 75 mls/hr IV .[id number] [facility] Rx#:[id number] Oral 472 225 Output: Void Amount 575 525 Urine/Stool Mix 600 Other: Meal Dinner Breakfast Percent of Meal Consumed 100% 100% Feeding Ability Independent Urine Appearance Clear Clear Urine Color Bright Yellow Dark Yellow Urine Odor Normal Exam: Looks well, NAD Respiratory Additional comments: Normal respiratory effort without distress Cardiovascular Cardiovascular exam: Present RRR GI/Abdominal Additional comments: soft and non tender, non distended Extremities Exam Additional comments: well perfused A/P Assessment and plan (1) Small bowel obstruction: Assessment and plan: Resolved SBO Home today Clinic follow up in 2-3 weeks Return to care immediately for any recurrence of symptoms Status: Acute Time Spent With Patient Time: Total time spent is greater than 50% in coordination of care (as documented) at patient's floor/unit and/or counseling patient:
--- NOTE | 2022-04-11 14:31 | Discharge Summary ---
DATE OF ADMISSION: 04/03/2022 DATE OF DISCHARGE: 04/06/2022 ADMITTING DIAGNOSIS: Small bowel obstruction. DISCHARGE DIAGNOSIS: Small bowel obstruction. ADMITTING PHYSICIAN: Sujit Lozano M.D. INDICATIONS FOR ADMISSION/HOSPITAL COURSE: The patient is a 76-year-old male who has had several and really increasingly frequent bowel obstructions over the past several years, presumably related to adhesions from prior management of acute sigmoid diverticulitis that necessitated what sounds like surgery with diversion, followed by take-down of that diversion at a later date. Two weeks prior to this hospitalization he was in the hospital for bowel obstruction that subsequently resolved and then prior to that had not had a bout for roughly a year or two. He came in on 04/03/2022 with increasing abdominal pain, distention, and symptoms consistent with this prior bout. Imaging in the ER was consistent with bowel obstruction and we were asked to see him in consultation and for admission, which we did. An NG tube was placed. He was started on IV fluids, then managed conservatively over the next several days. His symptoms really improved almost immediately and he was felt ready for discharge with full plain film resolution of his obstruction and clinical resolution by 04/06/2022. He was tolerating a diet, his NG tube was out, he was passing gas and had good bowel function without issue. DISPOSITION: Discharged home. PLAN: Followup in clinic and/or as needed. BW:mariel Job ID: [id number] Doc ID: [id number] Sujit Lozano M.D.
== END 2022-04-06 13:30 | disposition home or self-care (01) | DRG 390 ==
LOC: ED 02:00 → MEDSUR 09:42
PROVIDERS: ADMIT Surgery Surgical Critical Care; ATTEND Surgery Surgical Critical Care

== ENCOUNTER 2022-06-27 19:26 | Observation (INO) ==
[2022-06-27] MEDS ORDERED: IOPAMIDOL 100 ML BOTTLE IV ONE (19:27)
[2022-06-27] MEDS ORDERED: morphine 2 MG/ML VIAL IV PRN (19:47)
[2022-06-27] MEDS ORDERED: 0.9 % SODIUM CHLORIDE 500 ML IV ONE (19:47)
[2022-06-27] MEDS ORDERED: ONDANSETRON 4 MG/2 ML VIAL IV ONE ×2 (19:47→21:16)
[2022-06-27] MEDS ORDERED: LACTATED RINGERS 1,000 ML IV ONE (20:18)
[2022-06-27 20:58] LABS: POC Calcium, Ionized 1.25 (1.16-1.32); POC Creatinine 0.9 (0.6-1.2); POC Potassium 3.5 (3.3-5.1)
[2022-06-27] MEDS ORDERED: HYDROmorphone 0.5 MG/0.5 ML SYRINGE IV ONE (21:16)
[2022-06-27 21:20] LABS: Basophils # (Auto) 0.02 K/mcL (0.00-0.30); Basophils % (Auto) 0.3 % (0.0-2.0); Eosinophils # (Auto) 0.17 K/mcL (0.00-0.70); Eosinophils % (Auto) 2.8 % (0.0-7.0); Hematocrit 43.5 % (40.1-51.0); Hemoglobin 15.4 g/dL (13.7-17.5); Lymphocytes # (Auto) 1.69 K/mcL (1.50-4.80); Lymphocytes % (Auto) 28.2 % (15.5-49.0); Mean Cell Volume 92.8 fL (80.0-100.0); Mean Corpuscular HGB Conc 35.4 g/dL (31.0-36.0); Mean Platelet Volume 9.4 fL (8.8-12.5); Monocytes # (Auto) 0.43 K/mcL (0.10-0.90); Monocytes % (Auto) 7.2 % (1.0-12.0); Neutrophils % (Auto) 61.2 % (38.0-78.0); Platelet Count 177 K/mcL (140-440); RBC 4.69 M/mcL (4.63-6.08); Red Cell Distribution Width 12.1 % (11.5-14.5)
[2022-06-27 21:38] LABS: ALT/SGPT 23 U/L (<40); AST/SGOT 18 U/L (<40); Albumin 4.2 gm/dL (3.2-5.2); Alkaline Phosphatase 82 U/L (39-117); Bilirubin,Direct < 0.2 mg/dL (0-0.3); Globulin 2.4 gm/dL (2.2-3.7)
[2022-06-27 22:47] LABS: Appearance,Urine CLEAR (Clear); Bilirubin,Urine Negative (Negative); Color,Urine STRAW; Culture Indicated,Urine No; Glucose,Urine (UA) Negative (Negative); Ketones,Urine Negative (Negative); Leukocyte Esterase,Urine Negative /uL (Negative); Nitrate,Urine Negative (Negative); Protein,Urine Negative (Negative); Specific Gravity,Urine 1.012 (1.000-1.035); Urine Blood Negative (Negative); Urobilinogen,Urine Negative
--- NOTE | 2022-06-27 23:55 | Emergency Department Note ---
Abdominal Pain HPI General Chief Complaint: Abdominal Pain Stated Complaint: abdominal pain Time Seen by Provider: 06/27/22 19:47 Source: patient Mode of arrival: ambulatory Limitations: no limitations History of Present Illness HPI Narrative: Narrative: This is a 77-year-old male who presents to the emergency department for abdominal pain and nausea. He has a past medical history of perfect diverticulitis, colostomy status post takedown several years ago. Patient has been admitted on several occasions for bowel obstructions and states his symptoms today feel similar. He does report that he has had some liquid stool and does like he might be passing gas there has been no vomiting. No fevers or chills. His pain is mostly in the upper abdominal quadrants, no alleviating or exacerbating factors. His pain started about 6 hours prior to presentation. Related Data Home Medications Medication Instructions Recorded Confirmed prednisolone acetate 1 % eye 1 drp OS DAILY 07/25/15 05/24/22 drops,suspension brimonidine 0.15 % eye drops 1 gtt OS BID 11/14/15 05/24/22 brinzolamide 1 % eye 2 drp OS BID 12/24/17 05/24/22 drops,suspension (Azopt) atorvastatin 10 mg tablet 10 mg PO QDAY 04/17/21 05/24/22 cetirizine 10 mg tablet 10 mg PO QDAY PRN Allergy Symptoms 04/17/21 05/24/22 fluticasone propionate 50 1 spray intranasal QDAY PRN 12/27/21 05/24/22 mcg/actuation nasal Allergy Symptoms spray,suspension (Flonase Allergy Relief) hydrocortisone 2.5 % topical 1 applic topical BID 12/28/21 05/24/22 ointment metronidazole 0.75 % topical cream 1 applic topical QDAY 12/28/21 05/24/22 Previous Rx's Medication Instructions Recorded fluoride (sodium) 1.1 % dental 1 applic dental BID #113 grams 12/08/19 paste (Clinpro 5000) tizanidine 4 mg tablet 4 mg PO BID PRN muscle spasticity 07/06/21 #60 tabs escitalopram oxalate 20 mg tablet 20 mg PO QDAY #90 tabs 10/10/21 metformin 500 mg tablet,extended 1,000 mg PO BID #360 tabs 10/10/21 release 24hr omeprazole 20 mg capsule,delayed 20 mg PO QDAY #90 caps 03/06/22 release glipizide 5 mg tablet, extended 5 mg PO QDAY #90 tabs 03/29/22 release 24 hr ugtkqobegv-qqaoahtttfnmr-ipkuvzvo 1 cap PO QDAY PRN headache #30 caps 04/18/22 50 mg-300 mg-40 mg capsule (Fioricet) buspirone 7.5 mg tablet 7.5 mg PO BID #180 tabs 04/19/22 Allergies Allergy/AdvReac Type Severity Reaction Status Date / Time Xevbiyr-MUJ-EuN Reductase AdvReac Intermediate Myalgia Verified 06/27/22 19:28 Inhibitor [Ezzijnk-Vdp-Rne Reductase Inhibitor] meperidine [From Demerol] AdvReac Mild Hypotension Verified 06/27/22 19:28 morphine AdvReac Mild Hallucinati Verified 06/27/22 19:28 ons Review of Systems ROS ROS Narrative: Narrative: All systems ED: reviewed and negative except as stated. PFSH Narrative Patient History Narrative: Narrative: Medical/Surgical/Family History All Active Problems (Updated 06/27/22 @ 23:55 by Andrew Noble MD) Partial small bowel obstruction (Acute) Small bowel obstruction (Acute) SBO (small bowel obstruction) (Acute) Shoulder pain, right (Acute) Ingrown toenail of both feet (Acute) Intestinal adhesions (Acute) Lower abdominal pain (Acute) Left flank pain (Acute) BPH NOS w ur obs/LUTS (Acute) Orthostatic hypotension (Acute) Aortic stenosis, mild (Acute) Pre-syncope (Acute) Medicare annual wellness visit, subsequent (Acute) Acute neck pain (Acute) Sleep difficulties (Acute) Chronic headaches (Acute) Tendinopathy of right rotator cuff (Chronic) Acute vestibular neuronitis (Acute) Generalized anxiety disorder with panic attacks (Chronic) Sinusitis, acute (Acute) Myalgia due to HMG CoA reductase inhibitor (Acute) Tension headache (Chronic) Abdominal pain (Acute) Allergic rhinitis (Acute) DM type 2 (diabetes mellitus, type 2) (Chronic) Dysmetabolic syndrome X (Chronic) Obstructive sleep apnea (Chronic) Hyperlipidemia (Chronic) Patellofemoral syndrome (Chronic) Diverticula, colon (Chronic) FDC (current) use of oral hypoglycemic drugs (Chronic) FDC (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) Metabolic Syndrome X (Chronic) Neck pain on left side (Chronic) Greater trochanteric bursitis (Chronic) Environmental allergies (Chronic) Right knee pain (Chronic) History of continuous positive airway pressure (CPAP) dependence (Chronic) Osteoarthrosis multiple sites, 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) Glaucoma (Chronic) Enlarged prostate (Chronic) Elevated LFTs (Chronic) Dizziness (Acute) Depression (Chronic) Degenerative disc disease (Chronic) Bradycardia (Chronic) Allergy (Chronic) Medical History Abdominal pain Abdominal pain Acquired absence of other specified parts of digestive tract Allergy Bowel obstruction 08/19/2013; Small bowel Bradycardia H/O Degenerative disc disease Depression Continue Lexapro 20 mg daily. We will augment treatment for anxiety symptoms with BuSpar, as above. Diverticula, colon Diverticulitis of colon Dizziness Cardiac work-up including Holter monitor last year was negative. He does not feel dizzy today, rather feels like he is going to get dizzy. Difficult to describe. Denies vertigo. He will let us know if the symptoms worsen, and he will follow up with cardiology in the next couple of weeks. Dizziness DM type 2 (diabetes mellitus, type 2) Dysfunction of eustachian tube left greater than right Dysmetabolic syndrome X Metabolic Syndrome (dysmetabolic synd x) Elevated LFTs Mild. Remote. Hepatitis panel done 07/21/12 was normal Enlarged prostate Environmental allergies Episode of confusion 2 self-limiting episodes past 2 weeks Episode of dizziness No episodes of dizziness since he saw Dr. Damian Generalized anxiety disorder with panic attacks Much improved with buspirone 7.5 mg twice daily. Continue. Continue Lexapro 20 mg daily Consider Abilify versus psychiatry referral if he obsessive/compulsive symptoms recur. 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 Started pravastatin for a few weeks recently, but stopped about 5 days ago due to myalgia. Stay off pravastatin, and likely should not try another statin ever again. Check CPK and renal panel. Nasal lesion Left sided nasal lesion, skin. 05/11/2014 Neck pain on left side Likely muscular in origin Stretching and range of motion exercises recommended. Obstipation Obstructive sleep apnea No longer using CPAP for the last few years due to losing weight and noticing that he no longer snores. His Apple Watch is telling him that his sleep quality is poor with multiple wake ups. He wakes up feeling very tired. He agrees he may need treatment for KEI again. Olecranon bursitis Osteoarthrosis multiple sites, not specified as generalized bilateral hips. Neck Patellofemoral syndrome Personal history of nicotine dependence Stop smoking over 40 years ago. Prostatitis Pruritus recurring Psoriasis Right knee pain suspect patellofemoral syndrome. Shoulder pain, right Small bowel obstruction due to adhesions resolved at present. Tennis elbow Tension headache Multiple days per week MR brain negative Massage therapy not as helpful Trial of Fioricet for bad days as needed Thoracic back pain Right posterior lower thoracic pain; 03/26/2014 TIA (transient ischemic attack) Remote Surgical History Colostomy status History of cataract surgery Left. Right 05/30 History of cholecystectomy 09/05/12 History of colectomy 01/25/2013; Sigmoid colectomy for diverticular disease with subsequent colostomy and takedown History of colonoscopy 09/21/2013 normal post sigmoid colectomy surgery History of colostomy 04/02/2003 History of esophagogastroduodenoscopy (EGD) 03/13/16-EGJ inflammmation History of eye surgery Laser trabeuloplasty. 07/28/12 History of hernia surgery 2009; abdominal hernia repair History of surgery 06/16/04. Dilation of Anastomosis. Multiple History of surgery 06/14/03 - Stoma revision History of surgery 02/22/04 colostomy takedown and reanastomosis. History of tonsillectomy 1954 History of vasectomy Family History Grandfather Malignant neoplasm of urinary bladder Paternal Father , at 94 of unknown cause Mother , in late 80s of unknown cause Unknown Acute myocardial infarction FH+ for early CAD Social History Smoking Status: Former smoker Alcohol Intake Frequency: holiday/special occasion only Substance Use: does not use Exam Narrative Narrative: Narrative: Vital signs noted General: Awake. Alert. No distress. HEENT: NCAT PERRL EOMI. No conjunctivitis. Membranes moist. Neck: Supple, trachea midline Cardiovascular: RRR. No murmur. No rubs. No gallops. Respiratory: No respiratory distress. Breath sounds equal. Lungs clear. Gastrointestinal: Soft slightly distended. Tenderness mostly in the upper abdominal quadrants there is no guarding rigidity or other peritoneal signs, there is active bowel sounds Musculoskeletal: No pain. No soft tissue swelling. Good ROM. No signs injury Skin: Warm. Dry. No rash Neurologic: Alert and oriented x3 moves all extremities equally and fully, speech is fluent face is symmetric General Limitations: no limitations Course Vital Signs Vital signs: Vital Signs Temperature 97.5 F 06/27/22 19:26 Pulse Rate 59 L 06/27/22 19:26 Respiratory Rate 18 06/27/22 19:26 Blood Pressure 125/78 06/27/22 19:26 Pulse Oximetry (%) 96 06/27/22 19:26 Oxygen Delivery Method 06/27/22 19:26 Temperature 97.5 F 06/27/22 19:26 Pulse Rate 59 L 06/27/22 19:26 Respiratory Rate 18 06/27/22 19:26 Blood Pressure 114/71 06/28/22 00:01 Pulse Oximetry (%) 97 06/28/22 00:01 Oxygen Delivery Method 06/27/22 19:26 [facility] MDM Narrative Medical decision making narrative: Narrative: Patient presents to the emergency department with abdominal pain he states is similar pain to when he had bowel obstruction his CT scan is concerning for partial small bowel obstruction with possible superimposed enteritis. Patient will be made n.p.o. He was given nausea medication and 0.5 mg of Dilaudid. He will be admitted to the surgical service Dr. Echeverria. Lab Data Result diagrams: 06/27/22 20:51 Labs: Lab Results 06/27/22 06/27/22 06/27/22 Range/Units 20:51 20:51 20:53 WBC 6.0 (4.5-11.0) K/mcL RBC 4.69 (4.63-6.08) M/mcL Hgb 15.4 (13.7-17.5) g/dL Hct 43.5 (40.1-51.0) % POC Hct 43.0 (41-55) MCV 92.8 (80.0-100.0) fL MCH 32.8 (26.0-34.0) pg MCHC 35.4 (31.0-36.0) g/dL RDW 12.1 (11.5-14.5) % Plt Count 177 (140-440) K/mcL MPV 9.4 (8.8-12.5) fL Immature Gran % (Auto) 0.3 (0.0-0.5) % Neut % (Auto) 61.2 (38.0-78.0) % Lymph % (Auto) 28.2 (15.5-49.0) % [place] % (Auto) 7.2 (1.0-12.0) % Eos % (Auto) 2.8 (0.0-7.0) % Baso % (Auto) 0.3 (0.0-2.0) % Lymph # (Auto) 1.69 (1.50-4.80) K/mcL [place] # (Auto) 0.43 (0.10-0.90) K/mcL Eos # (Auto) 0.17 (0.00-0.70) K/mcL Baso # (Auto) 0.02 (0.00-0.30) K/mcL Immature Gran # 0.02 (0.00-0.05) K/mcl Absolute Neutrophils 3.67 (1.80-8.00) K/mcL POC VBG pH (7.32-7.42) POC VBG pCO2 at Temp (41-51) POC VBG pO2 (25-40) POC VBG HCO3 (24-28) POC VBG Total CO2 (25-29) POC Venous O2 Sat (40-70) POC VBG Base Excess (-2-2) VBG Lactic Acid (0.5-2) POC Sodium 141 (133-145) POC Potassium 3.5 (3.3-5.1) POC Chloride 104 (96-108) POC Total CO2 25.0 (22-30) POC BUN 15 (6-20) POC Creatinine 0.9 (0.6-1.2) POC Glucose 119 H (70-105) POC WB Ioniz Calcium 1.25 (1.16-1.32) Total Bilirubin 1.0 (0.1-1.0) mg/dL Direct Bilirubin < 0.2 (0-0.3) mg/dL AST 18 (<40) U/L ALT 23 (<40) U/L Alkaline Phosphatase 82 (39-117) U/L Total Protein 6.6 (5.9-8.4) gm/dL Albumin 4.2 (3.2-5.2) gm/dL Globulin 2.4 (2.2-3.7) gm/dL Lipase 24 (7-60) U/L Urine Color Urine Appearance (Clear) Urine pH (5.0-9.0) Ur Specific [place] (1.000-1.035) Urine Protein (Negative) mg/dL Urine Glucose (UA) (Negative) mg/dL Urine Ketones (Negative) mg/dL Urine Occult Blood (Negative) mg/dL Urine Nitrate (Negative) Urine Bilirubin (Negative) mg/dL Urine Urobilinogen mg/dL Ur Leukocyte Esterase (Negative) /uL Ur Culture Indicated? 06/27/22 06/27/22 Range/Units 20:54 21:56 WBC (4.5-11.0) K/mcL RBC (4.63-6.08) M/mcL Hgb (13.7-17.5) g/dL Hct (40.1-51.0) % POC Hct (41-55) MCV (80.0-100.0) fL MCH (26.0-34.0) pg MCHC (31.0-36.0) g/dL RDW (11.5-14.5) % Plt Count (140-440) K/mcL MPV (8.8-12.5) fL Immature Gran % (Auto) (0.0-0.5) % Neut % (Auto) (38.0-78.0) % Lymph % (Auto) (15.5-49.0) % [place] % (Auto) (1.0-12.0) % Eos % (Auto) (0.0-7.0) % Baso % (Auto) (0.0-2.0) % Lymph # (Auto) (1.50-4.80) K/mcL [place] # (Auto) (0.10-0.90) K/mcL Eos # (Auto) (0.00-0.70) K/mcL Baso # (Auto) (0.00-0.30) K/mcL Immature Gran # (0.00-0.05) K/mcl Absolute Neutrophils (1.80-8.00) K/mcL POC VBG pH 7.41 (7.32-7.42) POC VBG pCO2 at Temp 38.2 L (41-51) POC VBG pO2 52 H (25-40) POC VBG HCO3 24.5 (24-28) POC VBG Total CO2 26.0 (25-29) POC Venous O2 Sat 87.0 H (40-70) POC VBG Base Excess 0 (-2-2) VBG Lactic Acid 1.2 (0.5-2) POC Sodium (133-145) POC Potassium (3.3-5.1) POC Chloride (96-108) POC Total CO2 (22-30) POC BUN (6-20) POC Creatinine (0.6-1.2) POC Glucose (70-105) POC WB Ioniz Calcium (1.16-1.32) Total Bilirubin (0.1-1.0) mg/dL Direct Bilirubin (0-0.3) mg/dL AST (<40) U/L ALT (<40) U/L Alkaline Phosphatase (39-117) U/L Total Protein (5.9-8.4) gm/dL Albumin (3.2-5.2) gm/dL Globulin (2.2-3.7) gm/dL Lipase (7-60) U/L Urine Color Straw Urine Appearance Clear (Clear) Urine pH 7.0 (5.0-9.0) Ur Specific [place] 1.012 (1.000-1.035) Urine Protein Negative (Negative) mg/dL Urine Glucose (UA) Negative (Negative) mg/dL Urine Ketones Negative (Negative) mg/dL Urine Occult Blood Negative (Negative) mg/dL Urine Nitrate Negative (Negative) Urine Bilirubin Negative (Negative) mg/dL Urine Urobilinogen Negative mg/dL Ur Leukocyte Esterase Negative (Negative) /uL Ur Culture Indicated? No Discharge Plan Patient/Caregiver Discharge Instructions Pt seen by RETAIL EVENT ASSISTANT/PA only: No Clinical Impression: Partial small bowel obstruction Patient Disposition: Xfer As Outpt/Obs ([facility]) Follow up with: Steve Pendleton DO [Primary Care Provider] - Prescriptions: No Action tizanidine 4 mg tablet 4 mg PO BID PRN (Reason: muscle spasticity) Qty: 60 0RF escitalopram oxalate 20 mg tablet 20 mg PO QDAY Qty: 90 3RF metformin 500 mg tablet extended release 24hr 1,000 mg PO BID Qty: 360 3RF omeprazole 20 mg capsule,delayed release(DR/EC) 20 mg PO QDAY Qty: 90 3RF buspirone 7.5 mg tablet 7.5 mg PO BID Qty: 180 1RF Rx Instructions: Take 1 tab BID prednisolone acetate 1 % drops,suspension 1 drp OS DAILY Rx Instructions: 1 drp OPHTHALMIC OS QDay brinzolamide [Azopt] 1 % drops,suspension 2 drp OS BID Label Comments: Each eye Clinpro 5000 1.1 % paste 1 applic DENTAL BID Qty: 113 0RF atorvastatin 10 mg tablet 10 mg PO QDAY Label Comments: TAKE 1 TABLET BY MOUTH ONCE DAILY cetirizine 10 mg tablet 10 mg PO QDAY PRN (Reason: Allergy Symptoms) fluticasone propionate [Flonase Allergy Relief] 50 mcg/actuation spray,suspension 1 spray INTRANASAL QDAY PRN (Reason: Allergy Symptoms) Rx Instructions: administer into each nostril metronidazole 0.75 % cream 1 applic topical QDAY hydrocortisone 2.5 % ointment 1 applic topical BID glipizide 5 mg tablet extended release 24 hr 5 mg PO QDAY Qty: 90 3RF bnoojwpfhk-uflexdrdxzmth-srvb [Fioricet] 50-300-40 mg capsule 1 cap PO QDAY PRN (Reason: headache) Qty: 30 0RF Rx Instructions: do not take after 3 pm, contains caffeine brimonidine 1 GTT bottle 1 gtt OS BID
[2022-06-28] MEDS ORDERED: PROMETHAZINE 25 MG/ML VIAL IV PRN (00:15)
[2022-06-28] MEDS ORDERED: HYDROmorphone 0.5 MG/0.5 ML SYRINGE IV PRN (00:19)
[2022-06-28] MEDS: LACTATED RINGERS 1,000 ML IV SCH ×2 (01:49→12:21)
--- NOTE | 2022-06-28 05:32 | Cat Scan Report ---
INDICATION: abdominal pain, hx of bowel obstruction COMPARISON: Previous CT scans dated 04/03/2022, 03/21/2022, 07/20/2021 TECHNIQUE: Axial images were obtained through the abdomen and pelvis. Sagittally and coronally reformatted images. 80 Isovue 370 injected intravenously. Oral contrast material was not given FINDINGS: Examination was initially interpreted by [facility] Lung bases:Negative. No pulmonary parenchymal nodule. No pleural fluid or pericardial fluid Liver:Probable hepatic steatosis. No focal hepatic mass. Gallbladder, bilary:Previous cholecystectomy. No dilated bile ducts Spleen:Mild splenomegaly. This is stable. Spleen measures 14 cm maximally Pancreas:No pancreatic mass. No peripancreatic abnormality Adrenal glands:Negative Kidneys,ureters,bladder:17 mm right renal cyst. 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 No solid mass. No hydronephrosis. Left kidney is negative. No hydroureter. No ureteral calculus. No bladder stone. No detectable bladder mass. Gastrointestinal:Previous partial colectomy. There is a colorectal anastomosis deep in the pelvis. There is sigmoid colon containing a large amount of fecal material. Anterocolonic anastomosis left of midline. There is dilated fluid-filled jejunum with small bowel feces. Jejunum measures 3.0 cm in cross-sectional diameter. This is left sided. Findings are consistent with high-grade partial recur small bowel obstruction. Transition point is not well visualized but appears to be approximately the same location as on prior examination. This is in the upper pelvis and left-sided. There is normal caliber nonobstructing ileum on the right side of the abdomen. There is no loop obstruction. There is normal enhancement of small bowel wall. No evidence for bowel ischemia. The stomach is moderately distended and fluid-filled Vascular:Mild atherosclerotic calcification of the abdominal aorta. Celiac trunk, superior mesenteric artery, inferior mesenteric artery are normally opacified. Lymphatic:No retroperitoneal or mesenteric adenopathy Mesentery, peritoneum: No free intraperitoneal fluid. No mesenteric or retroperitoneal mass. No intra-abdominal abscess. Reproductive:Mild prosthetic enlargement, unchanged Musculoskeletal:No lumbar compression fractures. Sacrum and pelvis are negative. No hip fracture. No abdominal wall or inguinal hernia IMPRESSION: 1. Recurrent small bowel obstruction. This is probably high-grade partial and jejunal. Appearance is unchanged since previous CT scans including most recent examination dated 04/03/2022 2. Previous partial colectomy. There is an enterocolonic anastomosis and colorectal anastomosis 3. Stable mild or borderline splenomegaly 4. Probable hepatic steatosis. 5. Previous cholecystectomy The exam was performed using radiation dose optimization techniques including, but not limited to, automated exposure control, adjustment of the mA and/or kV according to patient size and use of iterative reconstruction technique. Interpreted and Authenticated by: Steve Watkins 06/28/22
[2022-06-28] MEDS: METOCLOPRAMIDE 10 MG/2 ML VIAL IV SCH ×3 (06:25→17:09)
--- NOTE | 2022-06-28 08:24 | XRay Report ---
INDICATION: sbo TECHNIQUE: Supine and upright abdomen. COMPARISON: Previous CT scans dated 06/27/2022, 04/03/2022, 03/21/2022 FINDINGS:Bowel gas pattern is unremarkable. No distended gas-filled small bowel. There is very little colonic gas but this patient has undergone prior subtotal colectomy. Previous CT scan demonstrated a distended jejunum and probable small bowel obstruction. Jejunum the prior examination was fluid-filled without significant gaseous distention. There is no biliary or portal venous gas. There is no pneumatosis. There is no pneumoperitoneum. IMPRESSION: 1. No dilated gas-filled small bowel 2. Nonspecific gas pattern Interpreted and Authenticated by: Steve Watkins 06/28/22
--- NOTE | 2022-06-28 18:16 | General Surg History&Physical ---
HPI History of Present Illness Patient information: Note initiated : 06/28/22 at 6:02 pm Service Date, if different from initiated Date: [] Patient: Steve Cavazos 77 y/o M admitted on 06/28/22 for abdominal pain. Chief Complaint: [] Chief complaint: Partial small bowel obstruction History of present illness: Mr. Cavazos is a 77 year old M with prior history of acute diverticulitis requiring Enriquez's procedure and follow-up colostomy takedown. The patient has had multiple episodes of partial small bowel obstruction in the past. He has had increasing crampy abdominal pain with lack of ability to have flatus or bowel movement. Because of increasing pain he was seen in the emergency room. By the time he reached the emergency room he said that he had passed a small amount of gas. He was admitted and started on IV fluids with metoclopramide. He has had increased flatus and bowel movement and has tolerated full liquid diet without difficulty. He is pain-free at this time and is stable for discharge home. Review of Systems All systems: reviewed and no additional remarkable complaints except as stated PFSH PFSH All Active Problems (Updated 06/28/22 @ 18:15 by César Echeverria MD) Adynamic ileus (Acute) Partial small bowel obstruction (Acute) Small bowel obstruction (Acute) SBO (small bowel obstruction) (Acute) Shoulder pain, right (Acute) Ingrown toenail of both feet (Acute) Intestinal adhesions (Acute) Lower abdominal pain (Acute) Left flank pain (Acute) BPH NOS w ur obs/LUTS (Acute) Orthostatic hypotension (Acute) Aortic stenosis, mild (Acute) Pre-syncope (Acute) Medicare annual wellness visit, subsequent (Acute) Acute neck pain (Acute) Sleep difficulties (Acute) Chronic headaches (Acute) Tendinopathy of right rotator cuff (Chronic) Acute vestibular neuronitis (Acute) Generalized anxiety disorder with panic attacks (Chronic) Sinusitis, acute (Acute) Myalgia due to HMG CoA reductase inhibitor (Acute) Tension headache (Chronic) Abdominal pain (Acute) Allergic rhinitis (Acute) DM type 2 (diabetes mellitus, type 2) (Chronic) Dysmetabolic syndrome X (Chronic) Obstructive sleep apnea (Chronic) Hyperlipidemia (Chronic) Patellofemoral syndrome (Chronic) Diverticula, colon (Chronic) 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) Metabolic Syndrome X (Chronic) Neck pain on left side (Chronic) Greater trochanteric bursitis (Chronic) Environmental allergies (Chronic) Right knee pain (Chronic) History of continuous positive airway pressure (CPAP) dependence (Chronic) Osteoarthrosis multiple sites, 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) Glaucoma (Chronic) Enlarged prostate (Chronic) Elevated LFTs (Chronic) Dizziness (Acute) Depression (Chronic) Degenerative disc disease (Chronic) Bradycardia (Chronic) Allergy (Chronic) Medical History Abdominal pain Abdominal pain Acquired absence of other specified parts of digestive tract Allergy Bowel obstruction 08/19/2013; Small bowel Bradycardia H/O Degenerative disc disease Depression Continue Lexapro 20 mg daily. We will augment treatment for anxiety symptoms with BuSpar, as above. Diverticula, colon Diverticulitis of colon Dizziness Cardiac work-up including Holter monitor last year was negative. He does not feel dizzy today, rather feels like he is going to get dizzy. Difficult to describe. Denies vertigo. He will let us know if the symptoms worsen, and he will follow up with cardiology in the next couple of weeks. Dizziness DM type 2 (diabetes mellitus, type 2) Dysfunction of eustachian tube left greater than right Dysmetabolic syndrome X Metabolic Syndrome (dysmetabolic synd x) Elevated LFTs Mild. Remote. Hepatitis panel done 07/21/12 was normal Enlarged prostate Environmental allergies Episode of confusion 2 self-limiting episodes past 2 weeks Episode of dizziness No episodes of dizziness since he saw Dr. Damian Generalized anxiety disorder with panic attacks Much improved with buspirone 7.5 mg twice daily. Continue. Continue Lexapro 20 mg daily Consider Abilify versus psychiatry referral if he obsessive/compulsive symptoms recur. 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 Started pravastatin for a few weeks recently, but stopped about 5 days ago due to myalgia. Stay off pravastatin, and likely should not try another statin ever again. Check CPK and renal panel. Nasal lesion Left sided nasal lesion, skin. 05/11/2014 Neck pain on left side Likely muscular in origin Stretching and range of motion exercises recommended. Obstipation Obstructive sleep apnea No longer using CPAP for the last few years due to losing weight and noticing that he no longer snores. His Apple Watch is telling him that his sleep quality is poor with multiple wake ups. He wakes up feeling very tired. He agrees he may need treatment for KEI again. Olecranon bursitis Osteoarthrosis multiple sites, not specified as generalized bilateral hips. Neck Patellofemoral syndrome Personal history of nicotine dependence Stop smoking over 40 years ago. Prostatitis Pruritus recurring Psoriasis Right knee pain suspect patellofemoral syndrome. Shoulder pain, right Small bowel obstruction due to adhesions resolved at present. Tennis elbow Tension headache Multiple days per week MR brain negative Massage therapy not as helpful Trial of Fioricet for bad days as needed Thoracic back pain Right posterior lower thoracic pain; 03/26/2014 TIA (transient ischemic attack) Remote Surgical History Colostomy status History of cataract surgery Left. Right 05/30 History of cholecystectomy 09/05/12 History of colectomy 01/25/2013; Sigmoid colectomy for diverticular disease with subsequent colostomy and takedown History of colonoscopy 09/21/2013 normal post sigmoid colectomy surgery History of colostomy 04/02/2003 History of esophagogastroduodenoscopy (EGD) 03/13/16-EGJ inflammmation History of eye surgery Laser trabeuloplasty. 07/28/12 History of hernia surgery 2009; abdominal hernia repair History of surgery 06/16/04. Dilation of Anastomosis. Multiple History of surgery 06/14/03 - Stoma revision History of surgery 02/22/04 colostomy takedown and reanastomosis. 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 smoking status: Never smoker alcohol intake frequency: holiday/special occasion only substance use type: does not use MEDS/ALLERGIES Home Medications and Allergies Home Medications Medication Instructions Recorded Confirmed Type prednisolone acetate 1 % eye 1 drp OS DAILY 07/25/15 05/24/22 History drops,suspension brimonidine 0.15 % eye drops 1 gtt OS BID 11/14/15 05/24/22 History brinzolamide 1 % eye 2 drp OS BID 12/24/17 05/24/22 History drops,suspension (Azopt) fluoride (sodium) 1.1 % dental 1 applic dental BID #113 grams 12/08/19 05/24/22 Rx paste (Clinpro 5000) atorvastatin 10 mg tablet 10 mg PO QDAY 04/17/21 05/24/22 History cetirizine 10 mg tablet 10 mg PO QDAY PRN Allergy Symptoms 04/17/21 05/24/22 History tizanidine 4 mg tablet 4 mg PO BID PRN muscle spasticity 07/06/21 05/24/22 Rx #60 tabs escitalopram oxalate 20 mg tablet 20 mg PO QDAY #90 tabs 10/10/21 05/24/22 Rx metformin 500 mg tablet,extended 1,000 mg PO BID #360 tabs 10/10/21 05/24/22 Rx release 24hr fluticasone propionate 50 1 spray intranasal QDAY PRN 12/27/21 05/24/22 History mcg/actuation nasal Allergy Symptoms spray,suspension (Flonase Allergy Relief) hydrocortisone 2.5 % topical 1 applic topical BID 12/28/21 05/24/22 History ointment metronidazole 0.75 % topical cream 1 applic topical QDAY 12/28/21 05/24/22 History omeprazole 20 mg capsule,delayed 20 mg PO QDAY #90 caps 03/06/22 05/24/22 Rx release glipizide 5 mg tablet, extended 5 mg PO QDAY #90 tabs 03/29/22 05/24/22 Rx release 24 hr ahihaholyz-gjujybyjvbxmf-iqchtlka 1 cap PO QDAY PRN headache #30 caps 04/18/22 05/24/22 Rx 50 mg-300 mg-40 mg capsule (Fioricet) buspirone 7.5 mg tablet 7.5 mg PO BID #180 tabs 04/19/22 05/24/22 Rx Allergies Allergy/AdvReac Type Severity Reaction Status Date / Time [id number] Reductase AdvReac Intermediate Myalgia Verified 06/27/22 19:28 Inhibitor [Arwexin-Iod-Fsu Reductase Inhibitor] meperidine [From Demerol] AdvReac Mild Hypotension Verified 06/27/22 19:28 morphine AdvReac Mild Hallucinati Verified 06/27/22 19:28 ons Physical Examination Vital Signs Vital signs: Temp Pulse Resp BP Pulse Ox O2 Del Method 97.9 F 62 18 116/71 98 06/28/22 12:00 06/28/22 12:00 06/28/22 12:00 06/28/22 12:00 06/28/22 12:00 06/28/22 12:00 General physical appearance General physical exam: well developed, well nourished and no distress Eyes Eye exam: PERRL and normal ocular movement ENT ENT exam: normal pinna, normal nares and normal mucosa Head Head exam IM: Present atraumatic, normal inspection and normocephalic Neck Neck exam: no masses, no bruits, trachea midline and no lymphadenopathy Cardiovascular Cardiovascular exam IM: Present normal rate and rhythm, RRR, +S1 and +S2; Absent JVD Respiratory Respiratory exam: normal expansion, normal respiratory effort and clear to auscultation Abdomen Abdomen: Present soft, non tender and bowel sounds; Absent tender or surgical scars (Healed surgical scars) Integumentary Integumentary: Present no rash, no growths and no abnormal pigmentation Neurologic Neurologic: Present normal coordination and normal sensation Musculoskeletal Musculoskeletal: Present normal gait and normal posture Psychiatric Psychiatric: Present oriented to time, oriented to person, oriented to place, speech is normal and memory intact Results Labs Result diagrams: 06/27/22 20:51 Labs: Abnormal lab results 06/27/22 06/27/22 Range/Units 20:53 20:54 POC VBG pCO2 at Temp 38.2 L (41-51) POC VBG pO2 52 H (25-40) POC Venous O2 Sat 87.0 H (40-70) POC Glucose 119 H (70-105) Diabetes panel 06/27/22 Range/Units 20:51 AST 18 (<40) U/L ALT 23 (<40) U/L Alkaline Phosphatase 82 (39-117) U/L Total Protein 6.6 (5.9-8.4) gm/dL Albumin 4.2 (3.2-5.2) gm/dL Calcium panel 06/27/22 Range/Units 20:51 Albumin 4.2 (3.2-5.2) gm/dL Adrenal panel 06/27/22 Range/Units 20:51 Total Bilirubin 1.0 (0.1-1.0) mg/dL AST 18 (<40) U/L ALT 23 (<40) U/L Alkaline Phosphatase 82 (39-117) U/L Total Protein 6.6 (5.9-8.4) gm/dL Albumin 4.2 (3.2-5.2) gm/dL All other labs normal. A/P Assessment and plan (1) Partial small bowel obstruction: Status: Acute (2) Adynamic ileus: Status: Acute (3) Generalized anxiety disorder with panic attacks: Status: Chronic Comment: Much improved with buspirone 7.5 mg twice daily. Continue. Continue Lexapro 20 mg daily Consider Abilify versus psychiatry referral if he obsessive/compulsive symptoms recur. (4) DM type 2 (diabetes mellitus, type 2): Status: Chronic Qualifiers: Diabetes mellitus complication status: without complication Diabetes mellitus mcc insulin use: without parts counterman use Qualified Code(s): E11.9 - Type 2 diabetes mellitus without complications (5) Obstructive sleep apnea: Status: Chronic Comment: No longer using CPAP for the last few years due to losing weight and noticing that he no longer snores. His Apple Watch is telling him that his sleep quality is poor with multiple wake ups. He wakes up feeling very tired. He agrees he may need treatment for KEI again. Plan Patient is clinically stable is discharged in satisfactory condition. He is advised to use full liquid diet including Ensure or boost for the next 2 days and then advance his diet as tolerated. Time Spent With Patient Time: Total time spent is greater than 50% in coordination of care (as documented) at patient's floor/unit and/or counseling patient:
== END 2022-06-28 20:00 | disposition home or self-care (01) ==
LOC: ED 19:26 → INTOOBSV 06-28 01:39 → MEDSUR 06-28 01:39
PROVIDERS: ADMIT Family Medicine Adult Medicine; ATTEND Family Medicine Adult Medicine

== ENCOUNTER 2022-11-28 23:21 | Observation (INO) ==
[2022-11-28] MEDS ORDERED: IOPAMIDOL 100 ML BOTTLE IV ONE (23:22)
[2022-11-29] MEDS ORDERED: 0.9 % SODIUM CHLORIDE 1,000 ML IV ONE (00:05)
[2022-11-29 00:10] LABS: POC Calcium, Ionized 1.22 (1.16-1.32); POC Creatinine 0.8 (0.6-1.2); POC Potassium 3.8 (3.3-5.1)
[2022-11-29 00:27] LABS: Basophils # (Auto) 0.03 K/mcL (0.00-0.30); Basophils % (Auto) 0.5 % (0.0-2.0); Eosinophils # (Auto) 0.37 K/mcL (0.00-0.70); Eosinophils % (Auto) 5.7 % (0.0-7.0); Hematocrit 46.8 % (40.1-51.0); Hemoglobin 16.3 g/dL (13.7-17.5); Lymphocytes # (Auto) 0.92 K/mcL (1.50-4.80); Lymphocytes % (Auto) 14.2 % (15.5-49.0); Mean Cell Volume 94.2 fL (80.0-100.0); Mean Corpuscular HGB Conc 34.8 g/dL (31.0-36.0); Monocytes # (Auto) 0.48 K/mcL (0.10-0.90); Monocytes % (Auto) 7.4 % (1.0-12.0); Neutrophils % (Auto) 71.9 % (38.0-78.0); Platelet Count 223 K/mcL (140-440); RBC 4.97 M/mcL (4.63-6.08); Red Cell Distribution Width 12.1 % (11.5-14.5); WBC 6.5 K/mcL (4.5-11.0)
[2022-11-29] MEDS ORDERED: KETOROLAC 30 MG/ML VIAL IV ONE (00:37)
[2022-11-29] MEDS ORDERED: METOCLOPRAMIDE 10 MG/2 ML VIAL IV ONE (00:37)
[2022-11-29] MEDS ORDERED: diphenhydrAMINE 50 MG/ML VIAL IV ONE (00:37)
[2022-11-29 00:46] LABS: ALT/SGPT 22 U/L (<40); AST/SGOT 17 U/L (<40); Alkaline Phosphatase 89 U/L (39-117); Bilirubin,Direct 0.2 mg/dL (<0.3); Bilirubin,Total 0.8 mg/dL (0.1-1.0); Globulin 2.8 gm/dL (2.2-3.7)
[2022-11-29 00:53] LABS: Appearance,Urine CLEAR (Clear); Bilirubin,Urine Negative (Negative); Color,Urine YELLOW; Culture Indicated,Urine No; Glucose,Urine (UA) Negative (Negative); Ketones,Urine Negative (Negative); Leukocyte Esterase,Urine Negative /uL (Negative); Nitrate,Urine Negative (Negative); Protein,Urine Negative (Negative); Urine Blood Negative (Negative); Urobilinogen,Urine Negative
[2022-11-29] MEDS: LACTATED RINGERS 1,000 ML IV SCH ×2 (05:33→14:03)
--- NOTE | 2022-11-29 05:53 | Emergency Department Note ---
HPI General Chief complaint: Abdominal Pain Stated complaint: Possible Bowel Obstruction Time Seen by Provider: 11/28/22 23:23 Source: patient Mode of arrival: ambulatory Limitations: no limitations History of Present Illness HPI Narrative: Narrative: 77-year-old male with a history of multiple small bowel obstructions, prior perforated diverticulitis that required Enriquez's procedure and later reversal, appendectomy, cholecystectomy presents with abdominal pain consistent with his prior bowel obstructions. He reports nausea no vomiting he reports abdominal pain and distention which is starting to improve. His symptoms started tonight. No fevers chills he had normal bowel movement earlier in the day. Related Data Home Medications Medication Instructions Recorded Confirmed prednisolone acetate 1 % eye 1 drp OS DAILY 07/25/15 11/29/22 drops,suspension brimonidine 0.15 % eye drops 1 gtt OS BID 11/14/15 11/29/22 brinzolamide 1 % eye 2 drp OS BID 12/24/17 11/29/22 drops,suspension (Azopt) atorvastatin 10 mg tablet 10 mg PO QDAY 04/17/21 11/29/22 hydrocortisone 2.5 % topical 1 applic topical BID 12/28/21 11/29/22 ointment metronidazole 0.75 % topical cream 1 applic topical QDAY 12/28/21 11/29/22 fluticasone propionate 50 2 spray intranasal QDAY PRN 11/20/22 11/29/22 mcg/actuation nasal Allergy Symptoms spray,suspension (Flonase Allergy Relief) Previous Rx's Medication Instructions Recorded metformin 500 mg tablet,extended 1,000 mg PO BID #360 tabs 10/10/21 release 24hr omeprazole 20 mg capsule,delayed 20 mg PO QDAY #90 caps 03/06/22 release glipizide 5 mg tablet, extended 5 mg PO QDAY #90 tabs 03/29/22 release 24 hr rvnnqlhorr-sdpfvncjpwddr-mlforbpt 1 cap PO QDAY PRN headache #30 caps 04/18/22 50 mg-300 mg-40 mg capsule (Fioricet) escitalopram oxalate 20 mg tablet 20 mg PO QDAY #90 tabs 10/04/22 buspirone 7.5 mg tablet 7.5 mg PO BID #180 tabs 10/11/22 Allergies Allergy/AdvReac Type Severity Reaction Status Date / Time meperidine [From Demerol] AdvReac Mild Hypotension Verified 11/28/22 23:28 morphine AdvReac Mild Hallucinati Verified 11/28/22 23:28 ons Review of Systems ROS ROS Narrative: Narrative: All systems ED: reviewed and negative except as stated. PFS Narrative Patient History Narrative: Narrative: Medical/Surgical/Family History All Active Problems (Updated 11/30/22 @ 04:36 by Andrew Noble MD) SBO (small bowel obstruction) (Acute) Neck pain (Acute) Recurrent maxillary sinusitis (Acute) Adynamic ileus (Acute) Partial small bowel obstruction (Acute) Small bowel obstruction (Acute) SBO (small bowel obstruction) (Acute) Shoulder pain, right (Acute) Ingrown toenail of both feet (Acute) Intestinal adhesions (Acute) Lower abdominal pain (Acute) Left flank pain (Acute) BPH NOS w ur obs/LUTS (Acute) Orthostatic hypotension (Acute) Aortic stenosis, mild (Acute) Pre-syncope (Acute) Medicare annual wellness visit, subsequent (Acute) Sleep difficulties (Acute) Chronic headaches (Acute) Tendinopathy of right rotator cuff (Chronic) Acute vestibular neuronitis (Acute) Generalized anxiety disorder with panic attacks (Chronic) Sinusitis, acute (Acute) Myalgia due to HMG CoA reductase inhibitor (Acute) Tension headache (Chronic) Abdominal pain (Acute) Allergic rhinitis (Acute) DM type 2 (diabetes mellitus, type 2) (Chronic) Dysmetabolic syndrome X (Chronic) Obstructive sleep apnea (Chronic) Hyperlipidemia (Chronic) Patellofemoral syndrome (Chronic) Diverticula, colon (Chronic) group home (current) use of oral hypoglycemic drugs (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) 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) Metabolic Syndrome X (Chronic) Neck pain on left side (Chronic) Greater trochanteric bursitis (Chronic) Environmental allergies (Chronic) Right knee pain (Chronic) History of continuous positive airway pressure (CPAP) dependence (Chronic) Osteoarthrosis multiple sites, 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) Glaucoma (Chronic) Enlarged prostate (Chronic) Elevated LFTs (Chronic) Dizziness (Acute) Depression (Chronic) Degenerative disc disease (Chronic) Bradycardia (Chronic) Allergy (Chronic) Medical History Abdominal pain Abdominal pain Acquired absence of other specified parts of digestive tract Allergy Bowel obstruction 08/19/2013; Small bowel Bradycardia H/O Degenerative disc disease Depression Continue Lexapro 20 mg daily. We will augment treatment for anxiety symptoms with BuSpar, as above. Diverticula, colon Diverticulitis of colon Dizziness Cardiac work-up including Holter monitor last year was negative. He does not feel dizzy today, rather feels like he is going to get dizzy. Difficult to describe. Denies vertigo. He will let us know if the symptoms worsen, and he will follow up with cardiology in the next couple of weeks. Dizziness DM type 2 (diabetes mellitus, type 2) Dysfunction of eustachian tube left greater than right Dysmetabolic syndrome X Metabolic Syndrome (dysmetabolic synd x) Elevated LFTs Mild. Remote. Hepatitis panel done 07/21/12 was normal Enlarged prostate Environmental allergies Episode of confusion 2 self-limiting episodes past 2 weeks Episode of dizziness No episodes of dizziness since he saw Dr. Damian Generalized anxiety disorder with panic attacks Much improved with buspirone 7.5 mg twice daily. Continue. Continue Lexapro 20 mg daily Consider Abilify versus psychiatry referral if he obsessive/compulsive sympt oms recur. 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 Started pravastatin for a few weeks recently, but stopped about 5 days ago due to myalgia. Stay off pravastatin, and likely should not try another statin ever again. Check CPK and renal panel. Nasal lesion Left sided nasal lesion, skin. 05/11/2014 Neck pain on left side Likely muscular in origin Stretching and range of motion exercises recommended. Obstipation Obstructive sleep apnea No longer using CPAP for the last few years due to losing weight and noticing that he no longer snores. His Apple Watch is telling him that his sleep quality is poor with multiple wake ups. He wakes up feeling very tired. He agrees he may need treatment for KEI again. Olecranon bursitis Osteoarthrosis multiple sites, not specified as generalized bilateral hips. Neck Patellofemoral syndrome Personal history of nicotine dependence Stop smoking over 40 years ago. Prostatitis Pruritus recurring Psoriasis Right knee pain suspect patellofemoral syndrome. Shoulder pain, right Small bowel obstruction due to adhesions resolved at present. Tennis elbow Tension headache Multiple days per week brain negative Massage therapy not as helpful Trial of Fioricet for bad days as needed Thoracic back pain Right posterior lower thoracic pain; 03/26/2014 TIA (transient ischemic attack) Remote Surgical History Colostomy status History of cataract surgery Left. Right 05/30 History of cholecystectomy 09/05/12 History of colectomy 01/25/2013; Sigmoid colectomy for diverticular disease with subsequent colostomy and takedown History of colonoscopy 09/21/2013 normal post sigmoid colectomy surgery History of colostomy 04/02/2003 History of esophagogastroduodenoscopy (EGD) 03/13/16-EGJ inflammmation History of eye surgery Laser trabeuloplasty. 07/28/12 History of hernia surgery 2009; abdominal hernia repair History of surgery 06/16/04. Dilation of Anastomosis. Multiple History of surgery 06/14/03 - Stoma revision History of surgery 02/22/04 colostomy takedown and reanastomosis. History of tonsillectomy 1954 History of vasectomy Family History Grandfather Malignant neoplasm of urinary bladder Paternal Father , at 94 of unknown cause Mother , in late 80s of unknown cause Unknown Acute myocardial infarction FH+ for early CAD Social History Smoking Status: Never smoker Alcohol Intake Frequency: holiday/special occasion only Substance Use: does not use Exam Narrative Narrative: Narrative: Vital signs noted General: Awake. Alert. No distress. HEENT: NCAT PERRL EOMI. No conjunctivitis. Membranes moist. Neck: Supple, trachea midline Cardiovascular: RRR. No murmur. No rubs. No gallops. Respiratory: No respiratory distress. Breath sounds equal. Lungs clear. Gastrointestinal: Soft. Mild tenderness to deep palpation no guarding rigidity, bowel sounds appreciated on auscultation Musculoskeletal: No pain. No soft tissue swelling. Good ROM. No signs injury Skin: Warm. Dry. No rash Neurologic: Alert and oriented x3 moves all extremities equally and fully, speech is fluent face is symmetric General Limitations: no limitations Course Vital Signs Vital signs: Vital Signs Temperature 96.0 F L 11/28/22 23:22 Pulse Rate 60 11/28/22 23:22 Respiratory Rate 18 11/28/22 23:22 Blood Pressure 145/82 11/28/22 23:22 Pulse Oximetry (%) 99 11/28/22 23:22 Oxygen Delivery Method Room Air 11/28/22 23:22 Temperature 98.1 F 11/29/22 16:03 Pulse Rate 60 11/29/22 16:03 Respiratory Rate 18 11/29/22 16:03 Blood Pressure 131/81 11/29/22 16:03 Pulse Oximetry (%) 98 11/29/22 16:03 Oxygen Delivery Method Room Air 11/29/22 16:03 Oxygen Flow Rate (L/min) 0 11/29/22 15:53 MDM MDM Narrative Medical decision making narrative: Narrative: Patient presents to the emergency department with abdominal pain. His CBC, CMP were obtained and reviewed by myself there without significant derangement. Patient's CT scan shows low-grade small bowel obstruction with stone transition in the anterior abdomen suspected to be related to adhesive disease faint mesenteric edema. I have personally reviewed these images. Patient's symptoms did significantly improve he was given Toradol, Reglan and Benadryl along with IV fluids. On reevaluation his symptoms are significantly improving I did speak with Dr. Echeverria who has agreed to see the patient in the morning he has a complicated surgical history and is at high risk for decompensation. Lab Data 11/28/22 23:57 Labs: Lab Results 11/28/22 11/28/22 11/29/22 Range/Units 23:57 23:57 00:05 WBC 6.5 (4.5-11.0) K/mcL RBC 4.97 (4.63-6.08) M/mcL Hgb 16.3 (13.7-17.5) g/dL Hct 46.8 (40.1-51.0) % POC Hct 47.0 (41-55) MCV 94.2 (80.0-100.0) fL MCH 32.8 (26.0-34.0) pg MCHC 34.8 (31.0-36.0) g/dL RDW 12.1 (11.5-14.5) % Plt Count 223 (140-440) K/mcL MPV 9.0 (8.8-12.5) fL Immature Gran % (Auto) 0.3 (0.0-0.5) % Neut % (Auto) 71.9 (38.0-78.0) % Lymph % (Auto) 14.2 L (15.5-49.0) % [place] % (Auto) 7.4 (1.0-12.0) % Eos % (Auto) 5.7 (0.0-7.0) % Baso % (Auto) 0.5 (0.0-2.0) % Lymph # (Auto) 0.92 L (1.50-4.80) K/mcL [place] # (Auto) 0.48 (0.10-0.90) K/mcL Eos # (Auto) 0.37 (0.00-0.70) K/mcL Baso # (Auto) 0.03 (0.00-0.30) K/mcL Immature Gran # 0.02 (0.00-0.05) K/mcl Absolute Neutrophils 4.67 (1.80-8.00) K/mcL POC Sodium 140 (133-145) POC Potassium 3.8 (3.3-5.1) POC Chloride 101 (96-108) POC Total CO2 28.0 (22-30) POC BUN 18 (6-20) POC Creatinine 0.8 (0.6-1.2) POC Glucose 145 H (70-105) POC WB Ioniz Calcium 1.22 (1.16-1.32) Total Bilirubin 0.8 (0.1-1.0) mg/dL Direct Bilirubin 0.2 (<0.3) mg/dL AST 17 (<40) U/L ALT 22 (<40) U/L Alkaline Phosphatase 89 (39-117) U/L Total Protein 6.8 (5.9-8.4) gm/dL Albumin 4.0 (3.2-5.2) gm/dL Globulin 2.8 (2.2-3.7) gm/dL Lipase 21 (7-60) U/L Urine Color Urine Appearance (Clear) Urine pH (5.0-9.0) Ur Specific [place] (1.000-1.035) Urine Protein (Negative) mg/dL Urine Glucose (UA) (Negative) mg/dL Urine Ketones (Negative) mg/dL Urine Occult Blood (Negative) mg/dL Urine Nitrate (Negative) Urine Bilirubin (Negative) mg/dL Urine Urobilinogen mg/dL Ur Leukocyte Esterase (Negative) /uL Ur Culture Indicated? 11/29/22 Range/Units 00:21 WBC (4.5-11.0) K/mcL RBC (4.63-6.08) M/mcL Hgb (13.7-17.5) g/dL Hct (40.1-51.0) % POC Hct (41-55) MCV (80.0-100.0) fL MCH (26.0-34.0) pg MCHC (31.0-36.0) g/dL RDW (11.5-14.5) % Plt Count (140-440) K/mcL MPV (8.8-12.5) fL Immature Gran % (Auto) (0.0-0.5) % Neut % (Auto) (38.0-78.0) % Lymph % (Auto) (15.5-49.0) % [place] % (Auto) (1.0-12.0) % Eos % (Auto) (0.0-7.0) % Baso % (Auto) (0.0-2.0) % Lymph # (Auto) (1.50-4.80) K/mcL [place] # (Auto) (0.10-0.90) K/mcL Eos # (Auto) (0.00-0.70) K/mcL Baso # (Auto) (0.00-0.30) K/mcL Immature Gran # (0.00-0.05) K/mcl Absolute Neutrophils (1.80-8.00) K/mcL POC Sodium (133-145) POC Potassium (3.3-5.1) POC Chloride (96-108) POC Total CO2 (22-30) POC BUN (6-20) POC Creatinine (0.6-1.2) POC Glucose (70-105) POC WB Ioniz Calcium (1.16-1.32) Total Bilirubin (0.1-1.0) mg/dL Direct Bilirubin (<0.3) mg/dL AST (<40) U/L ALT (<40) U/L Alkaline Phosphatase (39-117) U/L Total Protein (5.9-8.4) gm/dL Albumin (3.2-5.2) gm/dL Globulin (2.2-3.7) gm/dL Lipase (7-60) U/L Urine Color Yellow Urine Appearance Clear (Clear) Urine pH 6.0 (5.0-9.0) Ur Specific [place] 1.020 (1.000-1.035) Urine Protein Negative (Negative) mg/dL Urine Glucose (UA) Negative (Negative) mg/dL Urine Ketones Negative (Negative) mg/dL Urine Occult Blood Negative (Negative) mg/dL Urine Nitrate Negative (Negative) Urine Bilirubin Negative (Negative) mg/dL Urine Urobilinogen Negative mg/dL Ur Leukocyte Esterase Negative (Negative) /uL Ur Culture Indicated? No Discharge Plan Patient/Caregiver Discharge Instructions Pt seen by SENIOR PAYROLL MANAGER/PA only: No Clinical Impression: SBO (small bowel obstruction) Activity: increase activity as tolerated Patient Disposition: Xfer As Outpt/Obs ([facility]) Condition: Fair Prescription drug monitoring program results: PDMP not reviewed Discharge Date/Time: 11/29/22 08:07
[2022-11-29] MEDS ORDERED: ONDANSETRON 4 MG/2 ML VIAL IV PRN (06:32)
[2022-11-29] MEDS ORDERED: morphine 2 MG/ML VIAL IV PRN (06:32)
[2022-11-29] MEDS: POLYETHYLENE GLYCOL 3350 17 GM PACKET PO SCH ×4 (09:22→15:29)
--- NOTE | 2022-11-29 10:18 | Cat Scan Report ---
History: Bowel obstruction TECHNIQUE: Following injection of intravenous nonionic contrast the patient was imaged during the portal venous phase from above the diaphragm through the symphysis pubis.6 sagittal and coronal reformats were created. The radiation exposure was limited using dose reduction technology. There is minor interstitial fibrosis in right lung base and a couple small bulla in the right middle lobe. The liver is normal in size. There is mild fatty infiltration. There are several tiny cyst high in the left lobe. The spleen is within upper limits of normal in size and is homogeneous. The gallbladder is been removed. The bile ducts are nondilated. No mass or inflammation are present in the pancreas. The adrenals are normal and symmetric. There are small cortical scar anteriorly in the lateral portion of the right kidney and there is a small cyst in the upper pole measuring 1.4 cm. No solid mass, stone or hydronephrosis are present in either kidney. Aorta is normal in caliber. There is a moderate amount of atherosclerosis in the mid and distal aorta extending into the iliac arteries. Patient has had a prior ventral wall hernia repair with mesh. There are a few loops of borderline dilated small bowel in the mid abdomen extending to the left side. The measure up to 3.2 cm in greatest dimension. They contain a few air-fluid levels. The villalpando do not appear thickened or inflamed. There is an ill-defined transition through the anterior abdominal wall. This may be due to an adhesion. The ileum is normal in caliber. Patient's had a prior partial colectomy performed. Comparison with prior CT done on 06/27/22 shows there is greater dilatation of small intestine at the time of the prior exam. No ascites, mass or abscess are present in the abdomen or pelvis. Urinary bladder is partially emptied. Prostate is borderline enlarged. Bone windows reveal arthritis at multiple levels in the lumbar spine and arthritis in both hips. IMPRESSION: Low-grade small bowel obstruction in the jejunum, anteriorly in the left mid abdomen. This is probably related to adhesions from the prior surgery. Interpreted and Authenticated by: Kole David 11/29/22
[2022-11-29] MEDS ORDERED: DEXTROSE 31 GM ORAL.SUSP PO PRN (10:25)
[2022-11-29] MEDS ORDERED: DEXTROSE 50% 50 ML VIAL IV PRN (10:25)
[2022-11-29] MEDS ORDERED: INSULIN LISPRO 1 UNIT/0.01 ML UNIT SQ SCH (11:30)
[2022-11-29] MEDS ORDERED: METOCLOPRAMIDE 10 MG/2 ML VIAL IV SCH (12:00)
--- NOTE | 2022-11-29 15:30 | General Surg History&Physical ---
HPI History of Present Illness Patient information: Note initiated : 11/29/22 at 3:19 pm Service Date, if different from initiated Date: [] Patient: Steve Cavazos 77 y/o M admitted on 11/29/22 for Possible Bowel Obstruction. Chief Complaint: [] Chief complaint: obstruction partial small bowel History of present illness: Mr. Cavazos is a 77 year old M admitted with partial small bowel obstruction. The patient has a remote history of acute diverticulitis requiring Mirian procedure because of infection and abscess. He subsequently had colostomy takedown. He was hospitalized here in June 2022. He required a short stay and recovered uneventfully. He gives a history of onset of abdominal distention with severe crampy pain with inability to has flatus or bowel movement. He was seen in the emergency room last evening for suspected intestinal obstruction. He was started on nonoperative treatment and has improved significantly. He had a small bowel movement prior to coming to the floor and has had 2 bowel mov ements since then. He is totally asymptomatic. Patient has tolerated liquids without difficulty and is stable for discharge home. Review of Systems All systems: reviewed and no additional remarkable complaints except as stated PFSH PFSH All Active Problems (Updated 11/29/22 @ 15:29 by César Echeverria MD) Neck pain (Acute) Recurrent maxillary sinusitis (Acute) Adynamic ileus (Acute) Partial small bowel obstruction (Acute) Small bowel obstruction (Acute) SBO (small bowel obstruction) (Acute) Shoulder pain, right (Acute) Ingrown toenail of both feet (Acute) Intestinal adhesions (Acute) Lower abdominal pain (Acute) Left flank pain (Acute) BPH NOS w ur obs/LUTS (Acute) Orthostatic hypotension (Acute) Aortic stenosis, mild (Acute) Pre-syncope (Acute) Medicare annual wellness visit, subsequent (Acute) Sleep difficulties (Acute) Chronic headaches (Acute) Tendinopathy of right rotator cuff (Chronic) Acute vestibular neuronitis (Acute) Generalized anxiety disorder with panic attacks (Chronic) Sinusitis, acute (Acute) Myalgia due to HMG CoA reductase inhibitor (Acute) Tension headache (Chronic) Abdominal pain (Acute) Allergic rhinitis (Acute) DM type 2 (diabetes mellitus, type 2) (Chronic) Dysmetabolic syndrome X (Chronic) Obstructive sleep apnea (Chronic) Hyperlipidemia (Chronic) Patellofemoral syndrome (Chronic) Diverticula, colon (Chronic) 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 (Chronic) 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) Metabolic Syndrome X (Chronic) Neck pain on left side (Chronic) Greater trochanteric bursitis (Chronic) Environmental allergies (Chronic) Right knee pain (Chronic) History of continuous positive airway pressure (CPAP) dependence (Chronic) Osteoarthrosis multiple sites, 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) Glaucoma (Chronic) Enlarged prostate (Chronic) Elevated LFTs (Chronic) Dizziness (Acute) Depression (Chronic) Degenerative disc disease (Chronic) Bradycardia (Chronic) Allergy (Chronic) Medical History Abdominal pain Abdominal pain Acquired absence of other specified parts of digestive tract Allergy Bowel obstruction 08/19/2013; Small bowel Bradycardia H/O Degenerative disc disease Depression Continue Lexapro 20 mg daily. We will augment treatment for anxiety symptoms with BuSpar, as above. Diverticula, colon Diverticulitis of colon Dizziness Cardiac work-up including Holter monitor last year was negative. He does not feel dizzy today, rather feels like he is going to get dizzy. Difficult to describe. Denies vertigo. He will let us know if the symptoms worsen, and he will follow up with cardiology in the next couple of weeks. Dizziness DM type 2 (diabetes mellitus, type 2) Dysfunction of eustachian tube left greater than right Dysmetabolic syndrome X Metabolic Syndrome (dysmetabolic synd x) Elevated LFTs Mild. Remote. Hepatitis panel done 07/21/12 was normal Enlarged prostate Environmental allergies Episode of confusion 2 self-limiting episodes past 2 weeks Episode of dizziness No episodes of dizziness since he saw Dr. Damian Generalized anxiety disorder with panic attacks Much improved with buspirone 7.5 mg twice daily. Continue. Continue Lexapro 20 mg daily Consider Abilify versus psychiatry referral if he obsessive/compulsive symptoms recur. 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 Started pravastatin for a few weeks recently, but stopped about 5 days ago due to myalgia. Stay off pravastatin, and likely should not try another statin ever again. Check CPK and renal panel. Nasal lesion Left sided nasal lesion, skin. 05/11/2014 Neck pain on left side Likely muscular in origin Stretching and range of motion exercises recommended. Obstipation Obstructive sleep apnea No longer using CPAP for the last few years due to losing weight and noticing that he no longer snores. His Apple Watch is telling him that his sleep quality is poor with multiple wake ups. He wakes up feeling very tired. He agrees he may need treatment for KEI again. Olecranon bursitis Osteoarthrosis multiple sites, not specified as generalized bilateral hips. Neck Patellofemoral syndrome Personal history of nicotine dependence Stop smoking over 40 years ago. Prostatitis Pruritus recurring Psoriasis Right knee pain suspect patellofemoral syndrome. Shoulder pain, right Small bowel obstruction due to adhesions resolved at present. Tennis elbow Tension headache Multiple days per week MR brain negative Massage therapy not as helpful Trial of Fioricet for bad days as needed Thoracic back pain Right posterior lower thoracic pain; 03/26/2014 TIA (transient ischemic attack) Remote Surgical History Colostomy status History of cataract surgery Left. Right 05/30 History of cholecystectomy 09/05/12 History of colectomy 01/25/2013; Sigmoid colectomy for diverticular disease with subsequent col ostomy and takedown History of colonoscopy 09/21/2013 normal post sigmoid colectomy surgery History of colostomy 04/02/2003 History of esophagogastroduodenoscopy (EGD) 03/13/16-EGJ inflammmation History of eye surgery Laser trabeuloplasty. 07/28/12 History of hernia surgery 2009; abdominal hernia repair History of surgery 06/16/04. Dilation of Anastomosis. Multiple History of surgery 06/14/03 - Stoma revision History of surgery 02/22/04 colostomy takedown and reanastomosis. 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 smoking status: Former smoker quit date: 02/14/77 alcohol intake frequency: holiday/special occasion only substance use type: does not use MEDS/ALLERGIES Home Medications and Allergies Home Medications Medication Instructions Recorded Confirmed Type prednisolone acetate 1 % eye 1 drp OS DAILY 07/25/15 11/29/22 History drops,suspension brimonidine 0.15 % eye drops 1 gtt OS BID 11/14/15 11/29/22 History brinzolamide 1 % eye 2 drp OS BID 12/24/17 11/29/22 History drops,suspension (Azopt) atorvastatin 10 mg tablet 10 mg PO QDAY 04/17/21 11/29/22 History metformin 500 mg tablet,extended 1,000 mg PO BID #360 tabs 10/10/21 11/29/22 Rx release 24hr hydrocortisone 2.5 % topical 1 applic topical BID 12/28/21 11/29/22 History ointment metronidazole 0.75 % topical cream 1 applic topical QDAY 12/28/21 11/29/22 History omeprazole 20 mg capsule,delayed 20 mg PO QDAY #90 caps 03/06/22 11/29/22 Rx release glipizide 5 mg tablet, extended 5 mg PO QDAY #90 tabs 03/29/22 11/29/22 Rx release 24 hr hgaguitayj-glbebxdumrriq-daaumkso 1 cap PO QDAY PRN headache #30 caps 04/18/22 11/29/22 Rx 50 mg-300 mg-40 mg capsule (Fioricet) escitalopram oxalate 20 mg tablet 20 mg PO QDAY #90 tabs 10/04/22 11/29/22 Rx buspirone 7.5 mg tablet 7.5 mg PO BID #180 tabs 10/11/22 11/29/22 Rx fluticasone propionate 50 2 spray intranasal QDAY PRN 11/20/22 11/29/22 History mcg/actuation nasal Allergy Symptoms spray,suspension (Flonase Allergy Relief) Allergies Allergy/AdvReac Type Severity Reaction Status Date / Time meperidine [From Demerol] AdvReac Mild Hypotension Verified 11/28/22 23:28 morphine AdvReac Mild Hallucinati Verified 11/28/22 23:28 ons Physical Examination Vital Signs Vital signs: Temp Pulse Resp BP Pulse Ox O2 Del Method O2 Flow Rate 98.0 F 80 18 129/82 97 Room Air 0 11/29/22 12:00 11/29/22 12:00 11/29/22 12:00 11/29/22 12:00 11/29/22 12:00 11/29/22 08:07 11/29/22 08:07 General physical appearance General physical exam: well developed, well nourished and no distress Eyes Eye exam: PERRL and normal ocular movement ENT ENT exam: normal pinna, normal nares and normal mucosa Head Head exam IM: Present atraumatic, normal inspection and normocephalic Neck Neck exam: no masses, no bruits, trachea midline and no lymphadenopathy Cardiovascular Cardiovascular exam IM: Present normal rate and rhythm, RRR, +S1 and +S2; Absent JVD Respiratory Respiratory exam: normal expansion, normal respiratory effort and clear to auscultation Abdomen Abdomen: Present soft, non tender and bowel sounds; Absent tender or surgical scars (Healed surgical scars) Integumentary Integumentary: Present no rash, no growths and no abnormal pigmentation Neurologic Neurologic: Present normal coordination and normal sensation Musculoskeletal Musculoskeletal: Present normal gait and normal posture Psychiatric Psychiatric: Present oriented to time, oriented to person, oriented to place, speech is normal and memory intact Results Labs 11/28/22 23:57 Labs: Abnormal lab results 11/28/22 11/29/22 Range/Units 23:57 00:05 Lymph % (Auto) 14.2 L (15.5-49.0) % Lymph # (Auto) 0.92 L (1.50-4.80) K/mcL POC Glucose 145 H (70-105) Diabetes panel 11/28/22 Range/Units 23:57 AST 17 (<40) U/L ALT 22 (<40) U/L Alkaline Phosphatase 89 (39-117) U/L Total Protein 6.8 (5.9-8.4) gm/dL Albumin 4.0 (3.2-5.2) gm/dL Calcium panel 11/28/22 Range/Units 23:57 Albumin 4.0 (3.2-5.2) gm/dL Adrenal panel 11/28/22 Range/Units 23:57 Total Bilirubin 0.8 (0.1-1.0) mg/dL AST 17 (<40) U/L ALT 22 (<40) U/L Alkaline Phosphatase 89 (39-117) U/L Total Protein 6.8 (5.9-8.4) gm/dL Albumin 4.0 (3.2-5.2) gm/dL All other labs normal. A/P Assessment and plan (1) Partial small bowel obstruction: Status: Acute (2) Intestinal adhesions: Status: Acute (3) Generalized anxiety disorder with panic attacks: Status: Chronic Comment: (4) Obstructive sleep apnea: Status: Chronic Comment: . Plan Patient has improved nicely and is now asymptomatic. He has tolerated liquids without nausea. He has had multiple bowel movements and no longer has crampy abdominal pain. Patient is stable for discharge home. He will continue on MiraLAX daily and add oral laxatives if needed. He is discharged in satisfactory condition. Sepsis Sepsis Identified: No Time Spent With Patient Time: Total time spent is greater than 50% in coordination of care (as documented) at patient's floor/unit and/or counseling patient:
== END 2022-11-29 16:11 | disposition home or self-care (01) ==
LOC: ED 23:21 → INTOOBSV 11-29 08:07 → MEDSUR 11-29 08:07
PROVIDERS: ADMIT Family Medicine Adult Medicine; ATTEND Family Medicine Adult Medicine

== ENCOUNTER 2023-02-12 22:14 | Observation (INO) ==
[2023-02-12] MEDS ORDERED: IOPAMIDOL 100 ML BOTTLE IV ONE (22:15)
[2023-02-12] MEDS ORDERED: fentaNYL 100 MCG/2 ML VIAL IV ONE (22:26)
[2023-02-12] MEDS ORDERED: 0.9 % SODIUM CHLORIDE 1,000 ML IV ONE (22:26)
--- NOTE | 2023-02-12 22:28 | Emergency Department Note ---
Abdominal Pain HPI General Chief Complaint: Abdominal Pain Stated Complaint: stomach issues Time Seen by Provider: 02/12/23 22:15 Source: patient Mode of arrival: ambulatory Limitations: no limitations History of Present Illness HPI Narrative: Narrative: Patient presents ED with complaints of abdominal pain that started 8 PM tonight. Pain is rated 9/10. States all over his belly. He states he feels like he has not a small bowel obstruction. He has had several small bowel obstructions in the past along with some abdominal surgeries. He states his last bowel movement was this afternoon before the pain started. He last ate at about 5 PM tonight. Patient denies fever, chills, nausea, vomiting, melena, medic easier, dysuria, hematuria, urinary frequency, diarrhea, constipation. Patient denies any relie ving or aggravating factors. Related Data Home Medications Medication Instructions Recorded Confirmed prednisolone acetate 1 % eye 1 drp OS DAILY 07/25/15 01/01/23 drops,suspension brimonidine 0.15 % eye drops 1 gtt OS BID 11/14/15 01/01/23 brinzolamide 1 % eye 2 drp OS BID 12/24/17 01/01/23 drops,suspension (Azopt) atorvastatin 10 mg tablet 10 mg PO QDAY 04/17/21 01/01/23 hydrocortisone 2.5 % topical 1 applic topical BID 12/28/21 01/01/23 ointment metronidazole 0.75 % topical cream 1 applic topical QDAY 12/28/21 01/01/23 fluticasone propionate 50 2 spray intranasal QDAY PRN 11/20/22 01/01/23 mcg/actuation nasal Allergy Symptoms spray,suspension (Flonase Allergy Relief) Previous Rx's Medication Instructions Recorded omeprazole 20 mg capsule,delayed 20 mg PO QDAY #90 caps 03/06/22 release glipizide 5 mg tablet, extended 5 mg PO QDAY #90 tabs 03/29/22 release 24 hr [id number]-eozpbgyqdwmbj-vwtgqmqp 1 cap PO QDAY PRN headache #30 caps 04/18/22 50 mg-300 mg-40 mg capsule (Fioricet) escitalopram oxalate 20 mg tablet 20 mg PO QDAY #90 tabs 10/04/22 buspirone 7.5 mg tablet 7.5 mg PO BID #180 tabs 10/11/22 metformin 500 mg tablet,extended 1,000 mg PO BID #360 tabs 12/31/22 release 24hr Allergies Allergy/AdvReac Type Severity Reaction Status Date / Time meperidine [From Demerol] AdvReac Mild Hypotension Verified 01/01/23 08:51 morphine AdvReac Mild Hallucinati Verified 01/01/23 08:51 ons Review of Systems ROS ROS Narrative: Narrative: All systems ED: reviewed and negative except as stated. PFSH Narrative Patient History Narrative: Narrative: Medical/Surgical/Family History All Active Problems (Updated 02/13/23 @ 00:44 by Aaron Wang DO) Small bowel obstruction (Acute) SBO (small bowel obstruction) (Acute) Neck pain (Acute) Recurrent maxillary sinusitis (Acute) Adynamic ileus (Acute) Partial small bowel obstruction (Acute) Small bowel obstruction (Acute) SBO (small bowel obstruction) (Acute) Shoulder pain, right (Acute) Ingrown toenail of both feet (Acute) Intestinal adhesions (Acute) Lower abdominal pain (Acute) Left flank pain (Acute) BPH NOS w ur obs/LUTS (Acute) Orthostatic hypotension (Acute) Aortic stenosis, mild (Acute) Pre-syncope (Acute) Medicare annual wellness visit, subsequent (Acute) Sleep difficulties (Acute) Chronic headaches (Acute) Tendinopathy of right rotator cuff (Chronic) Acute vestibular neuronitis (Acute) Generalized anxiety disorder with panic attacks (Chronic) Sinusitis, acute (Acute) Myalgia due to HMG CoA reductase inhibitor (Acute) Tension headache (Chronic) Abdominal pain (Acute) Allergic rhinitis (Acute) DM type 2 (diabetes mellitus, type 2) (Chronic) Dysmetabolic syndrome X (Chronic) Obstructive sleep apnea (Chronic) Hyperlipidemia (Chronic) Patellofemoral syndrome (Chronic) Diverticula, colon (Chronic) FDC (current) use of oral hypoglycemic drugs (Chronic) FDC (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) Metabolic Syndrome X (Chronic) Neck pain on left side (Chronic) Greater trochanteric bursitis (Chronic) Environmental allergies (Chronic) Right knee pain (Chronic) History of continuous positive airway pressure (CPAP) dependence (Chronic) Osteoarthrosis multiple sites, 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) Glaucoma (Chronic) Enlarged prostate (Chronic) Elevated LFTs (Chronic) Dizziness (Acute) Depression (Chronic) Degenerative disc disease (Chronic) Bradycardia (Chronic) Allergy (Chronic) Medical History Abdominal pain Abdominal pain Acquired absence of other specified parts of digestive tract Allergy Bowel obstruction 08/19/2013; Small bowel Bradycardia H/O Degenerative disc disease Depression Continue Lexapro 20 mg daily. We will augment treatment for anxiety symptoms with BuSpar, as above. Diverticula, colon Diverticulitis of colon Dizziness Cardiac work-up including Holter monitor last year was negative. He does not feel dizzy today, rather feels like he is going to get dizzy. Difficult to describe. Denies vertigo. He will let us know if the symptoms worsen, and he will follow up with cardio logy in the next couple of weeks. Dizziness DM type 2 (diabetes mellitus, type 2) Dysfunction of eustachian tube left greater than right Dysmetabolic syndrome X Metabolic Syndrome (dysmetabolic synd x) Elevated LFTs Mild. Remote. Hepatitis panel done 07/21/12 was normal Enlarged prostate Environmental allergies Episode of confusion 2 self-limiting episodes past 2 weeks Episode of dizziness No episodes of dizziness since he saw Dr. 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 Started pravastatin for a few weeks recently, but stopped about 5 days ago due to myalgia. Stay off pravastatin, and likely should not try another statin ever again. Check CPK and renal panel. Nasal lesion Left sided nasal lesion, skin. 05/11/2014 Neck pain on left side Likely muscular in origin Stretching and range of motion exercises recommended. Obstipation Obstructive sleep apnea . Olecranon bursitis Osteoarthrosis multiple sites, not specified as generalized bilateral hips. Neck Patellofemoral syndrome Personal history of nicotine dependence Stop smoking over 40 years ago. Prostatitis Pruritus recurring Psoriasis Right knee pain suspect patellofemoral syndrome. Shoulder pain, right Small bowel obstruction due to adhesions resolved at present. Tennis elbow Tension headache Multiple days per week MR brain negative Massage therapy not as helpful Trial of Fioricet for bad days as needed Thoracic back pain Right posterior lower thoracic pain; 03/26/2014 TIA (transient ischemic attack) Remote Surgical History Colostomy status History of cataract surgery Left. Right 05/30 History of cholecystectomy 09/05/12 History of colectomy 01/25/2013; Sigmoid colectomy for diverticular disease with subsequent colostomy and takedown History of colonoscopy 09/21/2013 normal post sigmoid colectomy surgery History of colostomy 04/02/2003 History of esophagogastroduodenoscopy (EGD) 03/13/16-EGJ inflammmation History of eye surgery Laser trabeuloplasty. 07/28/12 History of hernia surgery 2009; abdominal hernia repair History of surgery 06/16/04. Dilation of Anastomosis. Multiple History of surgery 06/14/03 - Stoma revision History of surgery 02/22/04 colostomy takedown and reanastomosis. History of tonsillectomy 1954 History of vasectomy Family History Grandfather Malignant neoplasm of urinary bladder Paternal Father , at 94 of unknown cause Mother , in late 80s of unknown cause Unknown Acute myocardial infarction FH+ for early CAD Social History Smoking Status: Former smoker Alcohol Intake Frequency: holiday/special occasion only Substance Use: does not use Exam Narrative Narrative: Narrative: General Limitations: no limitations General appearance: Present grimacing; Absent in distress ENT ENT: Present normal oropharynx and mucous membranes moist Chest Chest: Present normal inspection; Absent tenderness Respiratory Respiratory: Present normal lung sounds bilaterally; Absent respiratory distress Cardiovascular Cardiovascular: Present regular rate and normal rhythm Adbominal Abdominal: Present soft, tenderness and normal bowel sounds Expanded Abdominal Abdominal Tenderness: Present diffuse Extremities Extremities: Present normal capillary refill Back Back: Absent CVA tenderness (R) or CVA tenderness (L) Neurological Neurological: Present oriented X3 and normal gait Psychiatric Psychiatric: Present normal affect and normal mood Skin Skin: Present warm (WNL) and intact Course Course Course Narrative: Patient was evaluate for abdominal pain. Patient was given IV fentanyl as well as some IV fluids and Zofran. Labs were obtained and were unremarkable to include normal white cell count. Renal function is normal. Hepatic panel normal. CT abdomen pelvis obtained with image reviewed myself which revealed small bowel obstruction. Case was discussed with on-call surgeon who request that patient remain in the ED until he admit the patient. NG tube was successfully placed. Confirmed by abdominal x-ray. As needed morphine for discomfort. Patient made NPO. ER and Zofran nausea. Plan of care was discussed with patient expressed verbal understand agreement of plan. Reevaluation(s) Reevaluation #1: Patient remains hemodynamic stable. No new complaints at this time. Time: 23:32 Consultations Consultation #1: Case discussed with on-call surgeon, Dr. Castillo, who was agreed to admit the patient. He requested patient stay here in the ED until he evaluates him in the morning. Time: 00:39 Vital Signs Vital signs: Vital Signs Temperature 97.4 F 02/12/23 22:14 Pulse Rate 62 02/12/23 22:14 Blood Pressure 124/78 02/12/23 22:14 Pulse Oximetry (%) 97 02/12/23 22:14 Oxygen Delivery Method Room Air 02/12/23 22:14 Temperature 97.4 F 02/12/23 22:45 Pulse Rate 56 L 02/13/23 00:18 Respiratory Rate 22 02/12/23 23:01 Blood Pressure 130/67 02/13/23 00:18 Pulse Oximetry (%) 96 02/13/23 00:18 Oxygen Delivery Method Room Air 02/12/23 22:14 [facility] MDM Narrative Medical decision making narrative: Narrative: Differential Diagnosis Differential Diagnosis: Diverticulitis, small bowel obstruction, pancreatitis Medical Records Medical records reviewed: Yes I reviewed the patient's medical records. Lab Data Lab results reviewed: Yes I reviewed the patient's lab results. 02/12/23 22:51 Labs: Lab Results 02/12/23 02/12/23 02/12/23 Range/Units 22:37 22:42 22:51 WBC 6.1 (4.5-11.0) K/mcL RBC 4.65 (4.63-6.08) M/mcL Hgb 15.2 (13.7-17.5) g/dL Hct 42.1 (40.1-51.0) % POC Hct 44.0 (41-55) MCV 90.5 (80.0-100.0) fL MCH 32.7 (26.0-34.0) pg MCHC 36.1 H (31.0-36.0) g/dL RDW 12.3 (11.5-14.5) % Plt Count 188 (140-440) K/mcL MPV 9.5 (8.8-12.5) fL Immature Gran % (Auto) 0.2 (0.0-0.5) % Neut % (Auto) 57.1 (38.0-78.0) % Lymph % (Auto) 29.4 (15.5-49.0) % Pike % (Auto) 9.2 (1.0-12.0) % Eos % (Auto) 3.6 (0.0-7.0) % Baso % (Auto) 0.5 (0.0-2.0) % Lymph # (Auto) 1.80 (1.50-4.80) K/mcL Pike # (Auto) 0.56 (0.10-0.90) K/mcL Eos # (Auto) 0.22 (0.00-0.70) K/mcL Baso # (Auto) 0.03 (0.00-0.30) K/mcL Immature Gran # 0.01 (0.00-0.05) K/mcl Absolute Neutrophils 3.50 (1.80-8.00) K/mcL POC Sodium 140 (133-145) POC Potassium 3.8 (3.3-5.1) POC Chloride 101 (96-108) POC Total CO2 25.0 (22-30) POC BUN 18 (6-20) POC Creatinine 0.8 (0.6-1.2) POC Glucose 172 H (70-105) POC WB Ioniz Calcium 1.23 (1.16-1.32) Total Bilirubin 0.7 (0.1-1.0) mg/dL Direct Bilirubin < 0.2 (0-0.3) mg/dL AST 20 (<40) U/L ALT 28 (<40) U/L Alkaline Phosphatase 81 (39-117) U/L Total Protein 6.7 (5.9-8.4) gm/dL Albumin 4.0 (3.2-5.2) gm/dL Globulin 2.7 (2.2-3.7) gm/dL Amylase 54 (28-100) U/L Lipase 27 (7-60) U/L Radiology Data Radiology results reviewed: Yes I reviewed the patient's radiology results. Radiology results narrative: CT and pelvis obtained with image reviewed myself which revealed small bowel obstruction Core Measures AMI Core Measures Followed: Yes Discharge Plan Patient/Caregiver Discharge Instructions Pt seen by TEST ENGINE OPERATOR/PA only: No Clinical Impression: Small bowel obstruction Patient Disposition: Xfer As Outpt/Obs ([facility]) Condition: Fair Follow up with: Steve Pendleton DO [Primary Care Provider] - Prescriptions: No Action omeprazole 20 mg capsule,delayed release(DR/EC) 20 mg PO QDAY Qty: 90 3RF escitalopram oxalate 20 mg tablet 20 mg PO QDAY Qty: 90 3RF buspirone 7.5 mg tablet 7.5 mg PO BID Qty: 180 1RF Rx Instructions: Take 1 tab BID metformin 500 mg tablet extended release 24hr 1,000 mg PO BID Qty: 360 3RF prednisolone acetate 1 % drops,suspension 1 drp OS DAILY Rx Instructions: 1 drp OPHTHALMIC OS QDay brinzolamide [Azopt] 1 % drops,suspension 2 drp OS BID Patient Comments: Each eye atorvastatin 10 mg tablet 10 mg PO QDAY Patient Comments: TAKE 1 TABLET BY MOUTH ONCE DAILY metronidazole 0.75 % cream 1 applic topical QDAY hydrocortisone 2.5 % ointment 1 applic topical BID glipizide 5 mg tablet extended release 24 hr 5 mg PO QDAY Qty: 90 3RF [id number]-upuftqcjkspen-[id number] [Fioricet] 50-300-40 mg capsule 1 cap PO QDAY PRN (Reason: headache) Qty: 30 0RF Rx Instructions: do not take after 3 pm, contains caffeine fluticasone propionate [Flonase Allergy Relief] 50 mcg/actuation spray,suspension 2 spray INTRANASAL QDAY PRN (Reason: Allergy Symptoms) Rx Instructions: administer into each nostril brimonidine 1 GTT bottle 1 gtt OS BID
[2023-02-12 22:42] LABS: POC Calcium, Ionized 1.23 (1.16-1.32); POC Creatinine 0.8 (0.6-1.2); POC Potassium 3.8 (3.3-5.1)
[2023-02-12 23:25] LABS: Basophils # (Auto) 0.03 K/mcL (0.00-0.30); Basophils % (Auto) 0.5 % (0.0-2.0); Eosinophils # (Auto) 0.22 K/mcL (0.00-0.70); Eosinophils % (Auto) 3.6 % (0.0-7.0); Hematocrit 42.1 % (40.1-51.0); Hemoglobin 15.2 g/dL (13.7-17.5); Lymphocytes % (Auto) 29.4 % (15.5-49.0); Mean Cell Volume 90.5 fL (80.0-100.0); Mean Corpuscular HGB Conc 36.1 g/dL (31.0-36.0); Mean Platelet Volume 9.5 fL (8.8-12.5); Monocytes # (Auto) 0.56 K/mcL (0.10-0.90); Monocytes % (Auto) 9.2 % (1.0-12.0); Neutrophils % (Auto) 57.1 % (38.0-78.0); Platelet Count 188 K/mcL (140-440); RBC 4.65 M/mcL (4.63-6.08); Red Cell Distribution Width 12.3 % (11.5-14.5); WBC 6.1 K/mcL (4.5-11.0)
[2023-02-13 00:01] LABS: ALT/SGPT 28 U/L (<40); AST/SGOT 20 U/L (<40); Alkaline Phosphatase 81 U/L (39-117); Amylase 54 U/L (28-100); Bilirubin,Direct < 0.2 mg/dL (0-0.3); Bilirubin,Total 0.7 mg/dL (0.1-1.0); Globulin 2.7 gm/dL (2.2-3.7)
[2023-02-13] MEDS ORDERED: morphine 2 MG/ML VIAL IV PRN (00:44)
[2023-02-13] MEDS ORDERED: ONDANSETRON 4 MG/2 ML VIAL IV PRN ×2 (00:44→07:38)
[2023-02-13] MEDS: fentaNYL 100 MCG/2 ML VIAL IV PRN ×3 (01:31→12:37)
--- NOTE | 2023-02-13 05:10 | XRay Report ---
INDICATION: ng tube placement TECHNIQUE: Supine abdomen. COMPARISON: Previous abdominal and pelvic CT scan dated 02/12/2023 FINDINGS:Esophagogastric tube within the body of the stomach. Bowel gas pattern is unremarkable. No dilated gas-filled small bowel IMPRESSION: Esophagogastric tube in the mid stomach Interpreted and Authenticated by: Steve Watkins 02/13/23
--- NOTE | 2023-02-13 05:23 | Cat Scan Report ---
INDICATION: abd pain, hx of sbo COMPARISON: Previous CT scans dated 11/29/2022, 06/28/2022, 06/27/2022 TECHNIQUE: Axial images were obtained through the abdomen and pelvis. Sagittally and coronally reformatted images. 80 mL Isovue 370 injected intravenously. Oral contrast material was not administered FINDINGS: Examination was initially interpreted by [facility] Lung bases:No parenchymal consolidation or mass. No pleural effusion. No pericardial effusion Liver:Liver is low density compared with the spleen. Appearance consistent with hepatic steatosis. No hepatic mass. Liver contour is smooth. Gallbladder, bilary:Previous cholecystectomy. No dilated bile ducts Spleen:Spleen is mildly enlarged. Spleen measures 14.3 x 11.3 cm. Normal enhancement of splenic and portal veins Pancreas:Pancreatic tail is atrophic and may have been surgically resected. Clinical correlation is necessary. No pancreatic mass. No pancreatic duct dilatation Adrenal glands:Negative Kidneys,ureters,bladder:19 mm right mid pole cyst. No solid renal mass. No hydronephrosis. No obstructing or nonobstructing calculi No hydroureter. No ureteral calculus. No bladder stone. No detectable bladder mass. Gastrointestinal:Previous partial colectomy. There is a colorectal anastomosis in the pelvis. Consistent with constipation. There is dilated jejunum. Jejunum measures approximately 3.5 cm in maximum cross-sectional diameter. There is fluid as well as small bowel feces. There is a transition point in the left upper quadrant. This is anteriorly located adjacent to the anterior abdominal wall and is consistent with adhesions. Findings are consistent with recurrent mechanical small bowel obstruction. Transition point is very similar in location to prior examinations. There is normal enhancing small bowel. There is no closed loop obstruction. There is no pneumoperitoneum. Stomach is moderately distended and contain semisolid material. Appendix: The appendix is surgically absent Vascular: Atherosclerotic calcification of the abdominal aorta. There is no abdominal aortic aneurysm Lymphatic:No retroperitoneal or mesenteric adenopathy Mesentery, peritoneum: No free intraperitoneal fluid. No mesenteric or retroperitoneal mass. No intra-abdominal abscess. Reproductive:Mild prostatic enlargement Musculoskeletal:No lumbar compression fractures. Sacrum and pelvis are negative. No hip fracture. No abdominal wall or inguinal hernia IMPRESSION: 1. Recurrent small bowel obstruction. Transition point is in the jejunum and anteriorly located against the anterior abdominal wall. Findings are consistent with obstruction due to adhesions 2. No evidence for bowel ischemia. No closed loop obstruction 3. Previous partial colectomy. Colorectal anastomosis demonstrated. There is prominent fecal material consistent with constipation 4. Previous cholecystectomy. Previous appendectomy. The exam was performed using radiation dose optimization techniques including, but not limited to, automated exposure control, adjustment of the mA and/or kV according to patient size and use of iterative reconstruction technique. Interpreted and Authenticated by: Steve Watkins 02/13/23
--- NOTE | 2023-02-13 07:42 | General Surg History&Physical ---
HPI History of Present Illness Patient information: Note initiated : 02/13/23 at 7:40 am Service Date, if different from initiated Date: [] Patient: Steve Cavazos 77 y/o M admitted on for stomach issues. Chief Complaint: [] History of present illness: Mr. Cavazos is a 77 year old M gentleman with a long history of intermittent partial small bowel obstructions over the last several years. Patient had a colectomy with an ostomy with an ostomy takedown since that time he has been admitted multiple times for partial small bowel obstructions. He typically resolves very fast, he came in last night with his typical symptoms, NG tube was placed in the emergency room and this morning he feels much better, less distended and has had a bowel movement. Review of Systems Review of systems: All systems reviewed, negative other than above PFSH PFSH All Active Problems (Updated 02/13/23 @ 00:44 by Aaron Wang DO) Small bowel obstruction (Acute) SBO (small bowel obstruction) (Acute) Neck pain (Acute) Recurrent maxillary sinusitis (Acute) Adynamic ileus (Acute) Partial small bowel obstruction (Acute) Small bowel obstruction (Acute) SBO (small bowel obstruction) (Acute) Shoulder pain, right (Acute) Ingrown toenail of both feet (Acute) Intestinal adhesions (Acute) Lower abdominal pain (Acute) Left flank pain (Acute) BPH NOS w ur obs/LUTS (Acute) Orthostatic hypotension (Acute) Aortic stenosis, mild (Acute) Pre-syncope (Acute) Medicare annual wellness visit, subsequent (Acute) Sleep difficulties (Acute) Chronic headaches (Acute) Tendinopathy of right rotator cuff (Chronic) Acute vestibular neuronitis (Acute) Generalized anxiety disorder with panic attacks (Chronic) Sinusitis, acute (Acute) Myalgia due to HMG CoA reductase inhibitor (Acute) Tension headache (Chronic) Abdominal pain (Acute) Allergic rhinitis (Acute) DM type 2 (diabetes mellitus, type 2) (Chronic) Dysmetabolic syndrome X (Chronic) Obstructive sleep apnea (Chronic) Hyperlipidemia (Chronic) Patellofemoral syndrome (Chronic) Diverticula, colon (Chronic) alf (current) use of oral hypoglycemic drugs (Chronic) watermaster (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) Metabolic Syndrome X (Chronic) Neck pain on left side (Chronic) Greater trochanteric bursitis (Chronic) Environmental allergies (Chronic) Right knee pain (Chronic) History of continuous positive airway pressure (CPAP) dependence (Chronic) Osteoarthrosis multiple sites, 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) Glaucoma (Chronic) Enlarged prostate (Chronic) Elevated LFTs (Chronic) Dizziness (Acute) Depression (Chronic) Degenerative disc disease (Chronic) Bradycardia (Chronic) Allergy (Chronic) Medical History Abdominal pain Abdominal pain Acquired absence of other specified parts of digestive tract Allergy Bowel obstruction 08/19/2013; Small bowel Bradycardia H/O Degenerative disc disease Depression Continue Lexapro 20 mg daily. We will augment treatment for anxiety symptoms with BuSpar, as above. Diverticula, colon Diverticulitis of colon Dizziness Cardiac work-up including Holter monitor last year was negative. He does not feel dizzy today, rather feels like he is going to get dizzy. Difficult to describe. Denies vertigo. He will let us know if the symptoms worsen, and he will follow up with cardiology in the next couple of weeks. Dizziness DM type 2 (diabetes mellitus, type 2) Dysfunction of eustachian tube left greater than right Dysmetabolic syndrome X Metabolic Syndrome (dysmetabolic synd x) Elevated LFTs Mild. Remote. Hepatitis panel done 07/21/12 was normal Enlarged prostate Environmental allergies Episode of confusion 2 self-limiting episodes past 2 weeks Episode of dizziness No episodes of dizziness since he saw Dr. Damian Generalized anxiety disorder with panic attacks Glaucoma Greater trochanteric bursitis History of continuous positive airway pressure (CPAP) dependence uses a CPAP pillow History of tobacco use remote Hyperlipidemia Incisional hernia Incisional hernia no obstruction or gangrene; epigastric incisional hernia Intestinal adhesions [bands] with obstruction (postprocedural) (postinfection) watermaster (current) use of aspirin watermaster (current) use of oral hypoglycemic drugs Metformin Medicare annual wellness visit, subsequent Metabolic Syndrome X Myalgia due to HMG CoA reductase inhibitor History of intolerance to Lipitor and Crestor. Started pravastatin for a few weeks recently, but stopped about 5 days ago due to myalgia. Stay off pravastatin, and likely should not try another statin ever again. Check CPK and renal panel. Nasal lesion Left sided nasal lesion, skin. 05/11/2014 Neck pain on left side Likely muscular in origin Stretching and range of motion exercises recommended. Obstipation Obstructive sleep apnea . Olecranon bursitis Osteoarthrosis multiple sites, not specified as generalized bilateral hips. Neck Patellofemoral syndrome Personal history of nicotine dependence Stop smoking over 40 years ago. Prostatitis Pruritus recurring Psoriasis Right knee pain suspect patellofemoral syndrome. Shoulder pain, right Small bowel obstruction due to adhesions resolved at present. Tennis elbow Tension headache Multiple days per week MR brain negative Massage therapy not as helpful Trial of Fioricet for bad days as needed Thoracic back pain Right posterior lower thoracic pain; 03/26/2014 TIA (transient ischemic attack) Remote Surgical History Colostomy status History of cataract surgery Left. Right 05/30 History of cholecystectomy 09/05/12 History of colectomy 01/25/2013; Sigmoid colectomy for diverticular disease with subsequent colostomy and takedown History of colonoscopy 09/21/2013 normal post sigmoid colectomy surgery History of colostomy 04/02/2003 History of esophagogastroduodenoscopy (EGD) 03/13/16-EGJ inflammmation History of eye surgery Laser trabeuloplasty. 07/28/12 History of hernia surgery 2009; abdominal hernia repair History of surgery 06/16/04. Dilation of Anastomosis. Multiple History of surgery 06/14/03 - Stoma revision History of surgery 02/22/04 colostomy takedown and reanastomosis. 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 smoking status: Former smoker quit date: 02/14/77 alcohol intake frequency: holiday/special occasion only substance use type: does not use MEDS/ALLERGIES Home Medications and Allergies Home Medications Medication Instructions Recorded Confirmed Type prednisolone acetate 1 % eye 1 drp OS DAILY 07/25/15 02/13/23 History drops,suspension brimonidine 0.15 % eye drops 1 gtt OS BID 11/14/15 02/13/23 History brinzolamide 1 % eye 2 drp OS BID 12/24/17 02/13/23 History drops,suspension (Azopt) atorvastatin 10 mg tablet 10 mg PO QDAY 04/17/21 02/13/23 History hydrocortisone 2.5 % topical 1 applic topical BID 12/28/21 02/13/23 History ointment metronidazole 0.75 % topical cream 1 applic topical QDAY 12/28/21 02/13/23 History omeprazole 20 mg capsule,delayed 20 mg PO QDAY #90 caps 03/06/22 02/13/23 Rx release glipizide 5 mg tablet, extended 5 mg PO QDAY #90 tabs 03/29/22 02/13/23 Rx release 24 hr [id number] 1 cap PO QDAY PRN headache #30 caps 04/18/22 01/01/23 Rx 50 mg-300 mg-40 mg capsule (Fioricet) escitalopram oxalate 20 mg tablet 20 mg PO QDAY #90 tabs 10/04/22 02/13/23 Rx buspirone 7.5 mg tablet 7.5 mg PO BID #180 tabs 10/11/22 02/13/23 Rx fluticasone propionate 50 2 spray intranasal QDAY PRN 11/20/22 02/13/23 History mcg/actuation nasal Allergy Symptoms spray,suspension (Flonase Allergy Relief) metformin 500 mg tablet,extended 1,000 mg PO BID #360 tabs 12/31/22 02/13/23 Rx release 24hr Allergies Allergy/AdvReac Type Severity Reaction Status Date / Time meperidine [From Demerol] AdvReac Mild Hypotension Verified 01/01/23 08:51 morphine AdvReac Mild Hallucinati Verified 01/01/23 08:51 ons Physical Examination Vital Signs Vital signs: Temp Pulse Resp BP Pulse Ox O2 Del Method 97.4 F 77 22 127/75 96 Room Air 02/12/23 22:45 02/13/23 07:33 02/12/23 23:01 02/13/23 06:01 02/13/23 07:33 02/12/23 22:14 General physical appearance General physical exam: well developed, well nourished and no distress Eyes Eye exam: PERRL and normal ocular movement ENT ENT exam: normal pinna, normal nares, normal mucosa, no hearing loss and no congestion Head Head exam IM: Present atraumatic and normocephalic Neck Neck exam: no masses, no bruits, trachea midline, no lymphadenopathy and no venous distension Cardiovascular Cardiovascular exam IM: Present normal rate and rhythm Respiratory Respiratory exam: normal expansion, normal respiratory effort, clear to percussion and clear to auscultation Abdomen Abdomen: Present soft, non tender and bowel sounds Hernia: Present none Genitourinary Genitourinary (Male): Present normal penis with no external lesions Rectum Rectum: Present normal sphincter tone, no hemorrhoids, no tenderness, no masses and no bleeding Integumentary Integumentary: Present no rash, no growths and no abnormal pigmentation Neurologic Neurologic: Present normal coordination and normal sensation Musculoskeletal Musculoskeletal: Present normal gait and normal posture Psychiatric Psychiatric: Present oriented to time, oriented to person, oriented to place, speech is normal and memory intact Results Labs 02/12/23 22:51 Labs: Abnormal lab results 02/12/23 02/12/23 Range/Units 22:37 22:51 MCHC 36.1 H (31.0-36.0) g/dL POC Glucose 172 H (70-105) Diabetes panel 02/12/23 Range/Units 22:42 AST 20 (<40) U/L ALT 28 (<40) U/L Alkaline Phosphatase 81 (39-117) U/L Total Protein 6.7 (5.9-8.4) gm/dL Albumin 4.0 (3.2-5.2) gm/dL Calcium panel 02/12/23 Range/Units 22:42 Albumin 4.0 (3.2-5.2) gm/dL Adrenal panel 02/12/23 Range/Units 22:42 Total Bilirubin 0.7 (0.1-1.0) mg/dL AST 20 (<40) U/L ALT 28 (<40) U/L Alkaline Phosphatase 81 (39-117) U/L Total Protein 6.7 (5.9-8.4) gm/dL Albumin 4.0 (3.2-5.2) gm/dL All other labs normal. A/P Assessment and plan (1) Small bowel obstruction: Plan: This is a pleasant 77-year-old gentleman who presents with his typical small bowel obstruction type pictures. Patient has now had a bowel movement feels much better. Plan: Admit, n.p.o., small bowel follow-through this morning. Further treatment based on small bowel follow-through results. Status: Acute Time Spent With Patient Time: Total time spent is greater than 50% in coordination of care (as documented) at patient's floor/unit and/or counseling patient:
[2023-02-13] MEDS ORDERED: DIATRIZOATE MEGLU/DIATRIZO SOD 120 ML BOTTLE PO ONE (09:32)
--- NOTE | 2023-02-13 10:16 | XRay Report ---
INDICATION: Small bowel obstruction TECHNIQUE: COMPARISON: None. FINDINGS: IMPRESSION: Interpreted and Authenticated by: Steve Watkins 02/13/23
[2023-02-13] MEDS ORDERED: 0.9 % SODIUM CHLORIDE 10 ML SYRINGE IV SCH (14:00)
--- NOTE | 2023-02-13 16:54 | Discharge Summary ---
Discharge Provider Provider IMPORTANT FOLLOW-UP INFORMATION FOR PCP: Patient information: Note initiated : 02/13/23 at 4:53 pm Service Date, if different from initiated Date: [] Patient: Steve Cavazos 77 y/o M admitted on 02/13/23 for stomach issues,small bowel obstruction. Chief Complaint: [] Date of admission: 02/13/23 09:31 Discharge date: 02/13/23 Primary care physician: Steve Pendleton DO Consults: 02/13/23 Consult to Physician [CONS] Stat Comment: Consulting Provider: gAus Castillo Reason For Exam: Physician to Consult COURSE Hospital Course Hospital course: Patient admitted from the emergency room with suspected partial small bowel obstruction, patient underwent a small bowel follow-through which showed no evidence of the small bowel obstruction. NG tube was removed, patient is tolerating diet. Discharge diagnosis: Resolved small bowel obstruction Time Spent with Patient Time attestation: Total time spent providing and/or coordinating discharge services: Time spent: Less than 30 minutes Physical Examination Vital Signs Vital signs: Temp Pulse Resp BP Pulse Ox O2 Del Method 98.1 F 66 16 113/62 97 Room Air 02/13/23 15:40 02/13/23 15:40 02/13/23 15:40 02/13/23 15:40 02/13/23 15:40 02/13/23 15:40 Discharge Plan Patient/Caregiver Discharge Instructions Activity: increase activity as tolerated Diet: Regular Diet Prescriptions: Continued omeprazole 20 mg capsule,delayed release(DR/EC) 20 mg PO QDAY Qty: 90 3RF escitalopram oxalate 20 mg tablet 20 mg PO QDAY Qty: 90 3RF buspirone 7.5 mg tablet 7.5 mg PO BID Qty: 180 1RF Rx Instructions: Take 1 tab BID metformin 500 mg tablet extended release 24hr 1,000 mg PO BID Qty: 360 3RF prednisolone acetate 1 % drops,suspension 1 drp OS DAILY Rx Instructions: 1 drp OPHTHALMIC OS QDay brinzolamide [Azopt] 1 % drops,suspension 2 drp OS BID Patient Comments: Each eye atorvastatin 10 mg tablet 10 mg PO QDAY Patient Comments: TAKE 1 TABLET BY MOUTH ONCE DAILY metronidazole 0.75 % cream 1 applic topical QDAY hydrocortisone 2.5 % ointment 1 applic topical BID glipizide 5 mg tablet extended release 24 hr 5 mg PO QDAY Qty: 90 3RF [id number]-dhdqwfbnaykat-kugv [Fioricet] 50-300-40 mg capsule 1 cap PO QDAY PRN (Reason: headache) Qty: 30 0RF Rx Instructions: do not take after 3 pm, contains caffeine fluticasone propionate [Flonase Allergy Relief] 50 mcg/actuation spray,suspension 2 spray INTRANASAL QDAY PRN (Reason: Allergy Symptoms) Rx Instructions: administer into each nostril brimonidine 1 GTT bottle 1 gtt OS BID Follow Up Plan Follow up with: Steve Pendleton DO [Primary Care Provider] - Patient Disposition: Home, Self-Care Prognosis: Fair Discharge Orders: Discharge Order (Routine); Ordered 02/13/23 Ordered By: Agus Castillo Pending Pending Pending: Resuscitation Status Resuscitate (Full Code) Diet Regular Diet Start SatFebruary 13 135 Fentanyl (Fentanyl 100 Mcg/2 Ml Vial) 50 mcg IV Q2HP PRN; Protocol PRN Reason: Per Pain Protocol Last Admin: 02/13/23 12:37 Dose: 50 mcg Documented By: Admin: 02/13/23 05:44 Dose: 50 mcg Documented By: Admin: 02/13/23 01:31 Dose: 50 mcg Documented By: ANTHONY Sodium Chloride (0.9 % Sodium Chloride 10 Ml Syringe) 10 ml IV Q8 JUAN Last Admin: 02/13/23 12:38 Dose: 10 ml Documented By: ROMAIN Shift Summary 02/13/23 16:26 Shift Summary by Maryellen Mayfield Admit Obs for SBO. H/o SBO. NG d/c'd ~1600; ~15ml output. No abd pain. Bowel movement liquid x2. Afebrile. Chronic HOANG /10. Fentanyl x1. will start reg diet this amanda. Initialized on 02/13/23 16:26 - END OF NOTE
== END 2023-02-13 18:40 | disposition home or self-care (01) ==
LOC: ED 22:14 → MEDSUR 22:14
PROVIDERS: ADMIT Surgery; ATTEND Surgery

== ENCOUNTER 2023-08-02 02:22 | Inpatient (IN) ==
[2023-08-02] MEDS ORDERED: IOPAMIDOL 100 ML BOTTLE IV ONE (02:23)
[2023-08-02] MEDS ORDERED: 0.9 % SODIUM CHLORIDE 1,000 ML IV ONE (02:51)
[2023-08-02] MEDS ORDERED: ONDANSETRON 4 MG/2 ML VIAL IV ONE (02:51)
[2023-08-02] MEDS ORDERED: HYDROmorphone 0.5 MG/0.5 ML SYRINGE IV ONE (02:52)
[2023-08-02 03:54] LABS: Basophils # (Auto) 0.02 K/mcL (0.00-0.30); Basophils % (Auto) 0.3 % (0.0-2.0); Eosinophils # (Auto) 0.12 K/mcL (0.00-0.70); Eosinophils % (Auto) 1.6 % (0.0-7.0); Hematocrit 49.7 % (40.1-51.0); Lymphocytes # (Auto) 1.04 K/mcL (1.50-4.80); Lymphocytes % (Auto) 13.8 % (15.5-49.0); Mean Cell Volume 96.9 fL (80.0-100.0); Mean Corpuscular HGB Conc 34.2 g/dL (31.0-36.0); Mean Platelet Volume 8.9 fL (8.8-12.5); Monocytes # (Auto) 0.53 K/mcL (0.10-0.90); Neutrophils % (Auto) 76.9 % (38.0-78.0); Platelet Count 177 K/mcL (140-440); RBC 5.13 M/mcL (4.63-6.08); Red Cell Distribution Width 12.3 % (11.5-14.5); WBC 7.5 K/mcL (4.5-11.0)
[2023-08-02 03:58] LABS: Appearance,Urine CLEAR (Clear); Bilirubin,Urine Negative (Negative); Color,Urine YELLOW; Culture Indicated,Urine No; Glucose,Urine (UA) Negative (Negative); Ketones,Urine Negative (Negative); Leukocyte Esterase,Urine Negative /uL (Negative); Mucus,Urine FEW /hpf; Nitrate,Urine Negative (Negative); Protein,Urine Negative (Negative); Specific Gravity,Urine 1.011 (1.000-1.035); Urine Blood Negative (Negative); Urine RBC 0 /hpf (0-3); Urine Squamous Epithelial Cell 0 /hpf (0-4); Urine WBC < 1 /hpf (0-4); Urobilinogen,Urine Negative
[2023-08-02 04:10] LABS: ALT/SGPT 21 U/L (<40); AST/SGOT 19 U/L (<40); Albumin 4.2 gm/dL (3.2-5.2); Albumin/Globulin Ratio 1.6 (1.0-2.3); Alkaline Phosphatase 82 U/L (39-117); Bilirubin,Total 0.9 mg/dL (0.1-1.0); Blood Urea Nitrogen 13 mg/dL (8-23); Calcium 9.4 mg/dL (8.6-10.4); Carbon Dioxide 23 mmol/L (22-30); Chloride 102 mmol/L (96-108); Globulin 2.7 gm/dL (2.2-3.7); Glomerular Filtration Rate 91; Glucose 163 mg/dL (70-105)
[2023-08-02] MEDS ORDERED: MIDAZOLAM 2 MG/2 ML VIAL IV ONE (05:16)
[2023-08-02] MEDS ORDERED: KETOROLAC 30 MG/ML VIAL IV ONE (09:16)
[2023-08-02] MEDS ORDERED: ONDANSETRON 4 MG/2 ML VIAL IV PRN (12:19)
[2023-08-02] MEDS ORDERED: DEXTROSE 31 GM ORAL.SUSP PO PRN (12:19)
[2023-08-02] MEDS ORDERED: IPRATROPIUM/ALBUTEROL 3 ML AMPUL.NEB NEB PRN (12:19)
[2023-08-02] MEDS ORDERED: DEXTROSE 50% 50 ML VIAL IV PRN (12:19)
[2023-08-02] MEDS ORDERED: morphine 4 MG/ML VIAL IV PRN (12:19)
[2023-08-02] MEDS: INSULIN LISPRO 1 UNIT/0.01 ML UNIT SQ SCH ×2 (13:01→17:22)
[2023-08-02] MEDS: DEXTROSE 5%-LR 1,000 ML IV SCH ×2 (13:02→21:24)
[2023-08-02] MEDS: 0.9 % SODIUM CHLORIDE 10 ML SYRINGE IV SCH ×2 (14:59→21:20)
[2023-08-02] MEDS ORDERED: HYDROmorphone 0.5 MG/0.5 ML SYRINGE IV PRN (17:33)
[2023-08-02] MEDS: SUCRETS LOZENGE PO PRN ×2 (19:51→21:24)
[2023-08-02] MEDS: BRIMONIDINE OPHTH DROPS 1 GTT BOTTLE 5ML OS SCH (20:01)
[2023-08-03] MEDS: INSULIN LISPRO 1 UNIT/0.01 ML UNIT SQ SCH ×5 (00:05→23:38)
[2023-08-03] MEDS: SUCRETS LOZENGE PO PRN ×4 (04:20→17:16)
[2023-08-03] MEDS: 0.9 % SODIUM CHLORIDE 10 ML SYRINGE IV SCH ×3 (05:28→21:00)
[2023-08-03] MEDS: ACETAMINOPHEN 325 MG TABLET PO PRN (06:01)
[2023-08-03 06:44] LABS: Basophils # (Auto) 0.01 K/mcL (0.00-0.30); Basophils % (Auto) 0.2 % (0.0-2.0); Eosinophils % (Auto) 1.5 % (0.0-7.0); Hematocrit 44.8 % (40.1-51.0); Lymphocytes % (Auto) 16.9 % (15.5-49.0); Mean Cell Volume 98.7 fL (80.0-100.0); Mean Corpuscular HGB Conc 33.5 g/dL (31.0-36.0); Mean Platelet Volume 9.6 fL (8.8-12.5); Monocytes # (Auto) 0.48 K/mcL (0.10-0.90); Monocytes % (Auto) 7.4 % (1.0-12.0); Neutrophils % (Auto) 73.8 % (38.0-78.0); Platelet Count 144 K/mcL (140-440); RBC 4.54 M/mcL (4.63-6.08); Red Cell Distribution Width 12.6 % (11.5-14.5); WBC 6.5 K/mcL (4.5-11.0)
[2023-08-03 06:59] LABS: Estimated Average Glucose(eAG) 137 mg/dL; Hemoglobin A1C 6.4 % Hgb (4.0-6.0)
[2023-08-03 07:07] LABS: ALT/SGPT 19 U/L (<40); AST/SGOT 15 U/L (<40); Albumin 3.3 gm/dL (3.2-5.2); Albumin/Globulin Ratio 1.4 (1.0-2.3); Alkaline Phosphatase 66 U/L (39-117); Bilirubin,Total 1.5 mg/dL (0.1-1.0); Blood Urea Nitrogen 12 mg/dL (8-23); Calcium 8.4 mg/dL (8.6-10.4); Carbon Dioxide 22 mmol/L (22-30); Chloride 106 mmol/L (96-108); Globulin 2.4 gm/dL (2.2-3.7); Glomerular Filtration Rate 91; Glucose 185 mg/dL (70-105)
[2023-08-03] MEDS: PANTOPRAZOLE 40 MG VIAL IV SCH (07:07)
[2023-08-03] MEDS: DEXTROSE 5%-LR 1,000 ML IV SCH ×3 (07:08→16:30)
[2023-08-03] MEDS ORDERED: BUTALB/ACETAMINOPHEN/CAFFEINE 1 TABLET PO PRN (09:19)
[2023-08-03] MEDS: BRIMONIDINE OPHTH DROPS 1 GTT BOTTLE 5ML OS SCH ×2 (09:25→20:59)
[2023-08-03] MEDS: busPIRone 5 MG TABLET PO SCH ×2 (09:25→21:00)
[2023-08-03] MEDS: METRONIDAZOLE 0.75% TOPICAL SCH (09:25)
[2023-08-03] MEDS: prednisoLONE 1% OPHTH DROPS 1ML BOTTLE OS SCH (09:26)
[2023-08-03] MEDS ORDERED: DIATRIZOATE MEGLU/DIATRIZO SOD 120 ML BOTTLE PO ONE (13:01)
[2023-08-04] MEDS: DEXTROSE 5%-LR 1,000 ML IV SCH (02:48)
[2023-08-04] MEDS: 0.9 % SODIUM CHLORIDE 10 ML SYRINGE IV SCH (04:34)
[2023-08-04] MEDS: INSULIN LISPRO 1 UNIT/0.01 ML UNIT SQ SCH (05:24)
[2023-08-04 05:30] VITALS: TEMP 97.7; O2SAT 98
[2023-08-04] MEDS ORDERED: ATORVASTATIN 10 MG TABLET PO SCH (09:00)
[2023-08-04] MEDS ORDERED: ESCITALOPRAM 20 MG TABLET PO SCH (09:00)
[2023-08-04] MEDS: busPIRone 5 MG TABLET PO SCH (09:11)
[2023-08-04] MEDS: ACETAMINOPHEN 325 MG TABLET PO PRN (09:11)
[2023-08-04] MEDS: PANTOPRAZOLE 40 MG VIAL IV SCH (09:12)
[2023-08-04] MEDS: BRIMONIDINE OPHTH DROPS 1 GTT BOTTLE 5ML OS SCH (09:12)
[2023-08-04] MEDS: prednisoLONE 1% OPHTH DROPS 1ML BOTTLE OS SCH (09:13)
[2023-08-04] MEDS: METRONIDAZOLE 0.75% TOPICAL SCH (09:13)
== END 2023-08-04 10:31 | disposition home or self-care (01) | DRG 390 ==
LOC: ED 02:22 → MEDSUR 11:35
PROVIDERS: ADMIT Internal Medicine; ATTEND Internal Medicine

== ENCOUNTER 2023-09-18 23:49 | Inpatient (IN) ==
[2023-09-18] MEDS ORDERED: IOPAMIDOL 100 ML BOTTLE IV ONE (23:50)
[2023-09-18] MEDS ORDERED: 0.9 % SODIUM CHLORIDE 500 ML IV ONE (23:55)
[2023-09-19] MEDS ORDERED: ONDANSETRON 4 MG/2 ML VIAL IV ONE ×2 (00:07→02:24)
[2023-09-19] MEDS ORDERED: morphine 4 MG/ML VIAL IV ONE (00:07)
[2023-09-19 00:14] LABS: POC Calcium, Ionized 1.27 (1.16-1.32); POC Potassium 3.9 (3.3-5.1)
[2023-09-19 00:31] LABS: Basophils # (Auto) 0.01 K/mcL (0.00-0.30); Basophils % (Auto) 0.1 % (0.0-2.0); Eosinophils # (Auto) 0.13 K/mcL (0.00-0.70); Eosinophils % (Auto) 1.2 % (0.0-7.0); Hematocrit 47.9 % (40.1-51.0); Hemoglobin 16.9 g/dL (13.7-17.5); Lymphocytes % (Auto) 17.1 % (15.5-49.0); Mean Cell Volume 95.2 fL (80.0-100.0); Mean Corpuscular HGB Conc 35.3 g/dL (31.0-36.0); Mean Platelet Volume 9.1 fL (8.8-12.5); Monocytes # (Auto) 0.71 K/mcL (0.10-0.90); Monocytes % (Auto) 6.4 % (1.0-12.0); Platelet Count 209 K/mcL (140-440); RBC 5.03 M/mcL (4.63-6.08); Red Cell Distribution Width 12.2 % (11.5-14.5); WBC 11.1 K/mcL (4.5-11.0)
[2023-09-19 00:36] LABS: Appearance,Urine Clear (Clear); Bilirubin,Urine Negative (Negative); Color,Urine Yellow; Culture Indicated,Urine No; Glucose,Urine (UA) Negative (Negative); Ketones,Urine Negative (Negative); Leukocyte Esterase,Urine Negative /uL (Negative); Nitrate,Urine Negative (Negative); Protein,Urine Negative (Negative); Urine Blood Negative ery/mcL (Negative); Urobilinogen,Urine Normal
[2023-09-19 00:41] LABS: ALT/SGPT 26 U/L (<40); AST/SGOT 24 U/L (<40); Albumin 4.5 gm/dL (3.2-5.2); Alkaline Phosphatase 80 U/L (39-117); Bilirubin,Direct 0.3 mg/dL (<0.3); Bilirubin,Total 1.3 mg/dL (0.1-1.0); Globulin 2.8 gm/dL (2.2-3.7)
[2023-09-19] MEDS: 0.9 % SODIUM CHLORIDE 1,000 ML IV SCH ×5 (01:12→17:05)
[2023-09-19] MEDS ORDERED: morphine 4 MG/ML VIAL IV PRN (01:44)
[2023-09-19] MEDS ORDERED: ONDANSETRON 4 MG/2 ML VIAL IV PRN (01:44)
[2023-09-19] MEDS ORDERED: HYDROmorphone 0.5 MG/0.5 ML SYRINGE IV PRN (02:50)
[2023-09-19] MEDS: 0.9 % SODIUM CHLORIDE 10 ML SYRINGE IV SCH ×3 (04:14→20:50)
[2023-09-19] MEDS ORDERED: DEXTROSE 50% 50 ML VIAL IV PRN (12:31)
[2023-09-19] MEDS ORDERED: DEXTROSE 31 GM ORAL.SUSP PO PRN (12:31)
[2023-09-19] MEDS: POLYETHYLENE GLYCOL 3350 17 GM PACKET PO SCH ×3 (12:51→21:13)
[2023-09-19] MEDS: INSULIN LISPRO 1 UNIT/0.01 ML UNIT SQ SCH ×2 (16:48→21:10)
[2023-09-19] MEDS: METOCLOPRAMIDE 10 MG/2 ML VIAL IV SCH (18:33)
[2023-09-20] MEDS: METOCLOPRAMIDE 10 MG/2 ML VIAL IV SCH ×4 (00:23→18:24)
[2023-09-20] MEDS: 0.9 % SODIUM CHLORIDE 1,000 ML IV SCH ×4 (01:55→16:46)
[2023-09-20] MEDS: POLYETHYLENE GLYCOL 3350 17 GM PACKET PO SCH (01:58)
[2023-09-20 06:31] LABS: Basophils # (Auto) 0.02 K/mcL (0.00-0.30); Basophils % (Auto) 0.4 % (0.0-2.0); Eosinophils # (Auto) 0.12 K/mcL (0.00-0.70); Eosinophils % (Auto) 2.2 % (0.0-7.0); Hematocrit 38.1 % (40.1-51.0); Hemoglobin 12.9 g/dL (13.7-17.5); Lymphocytes % (Auto) 20.3 % (15.5-49.0); Mean Cell Volume 98.2 fL (80.0-100.0); Mean Corpuscular HGB Conc 33.9 g/dL (31.0-36.0); Mean Platelet Volume 9.2 fL (8.8-12.5); Monocytes % (Auto) 7.4 % (1.0-12.0); Neutrophils % (Auto) 69.5 % (38.0-78.0); Platelet Count 168 K/mcL (140-440); RBC 3.88 M/mcL (4.63-6.08); Red Cell Distribution Width 12.6 % (11.5-14.5); WBC 5.4 K/mcL (4.5-11.0)
[2023-09-20 07:03] LABS: Blood Urea Nitrogen 13 mg/dL (8-23); Calcium 8.2 mg/dL (8.6-10.4); Carbon Dioxide 24 mmol/L (22-30); Chloride 110 mmol/L (96-108); Glomerular Filtration Rate 91; Glucose 102 mg/dL (70-105)
[2023-09-20] MEDS: 0.9 % SODIUM CHLORIDE 10 ML SYRINGE IV SCH ×3 (07:09→20:47)
[2023-09-20] MEDS: INSULIN LISPRO 1 UNIT/0.01 ML UNIT SQ SCH ×4 (07:10→20:47)
[2023-09-20] MEDS ORDERED: DIATRIZOATE MEGLU/DIATRIZO SOD 120 ML BOTTLE PO ONE ×2 (12:56)
[2023-09-21] MEDS: 0.9 % SODIUM CHLORIDE 1,000 ML IV SCH ×3 (00:07→12:48)
[2023-09-21] MEDS: METOCLOPRAMIDE 10 MG/2 ML VIAL IV SCH ×3 (00:10→12:50)
[2023-09-21] MEDS: 0.9 % SODIUM CHLORIDE 10 ML SYRINGE IV SCH (05:46)
[2023-09-21] MEDS: INSULIN LISPRO 1 UNIT/0.01 ML UNIT SQ SCH ×2 (06:58→12:48)
[2023-09-21 15:41] VITALS: TEMP 98.6; O2SAT 96
== END 2023-09-21 15:05 | disposition home or self-care (01) | DRG 390 ==
LOC: ED 23:49 → MEDSUR 09-19 02:38
PROVIDERS: ADMIT Family Medicine Adult Medicine; ATTEND Family Medicine Adult Medicine

== ENCOUNTER 2024-03-27 20:57 | Inpatient (IN) ==
[2024-03-27] MEDS ORDERED: IOPAMIDOL 100 ML BOTTLE IV ONE (20:58)
[2024-03-27] MEDS ORDERED: morphine 2 MG/ML VIAL IV PRN (21:48)
[2024-03-27] MEDS: KETOROLAC 30 MG/ML VIAL IV ONE (22:04)
[2024-03-27] MEDS: 0.9 % SODIUM CHLORIDE 1,000 ML IV ONE (22:04)
[2024-03-27] MEDS: ONDANSETRON 4 MG/2 ML VIAL IV ONE (22:05)
[2024-03-27 22:12] LABS: Basophils # (Auto) 0.02 K/mcL (0.00-0.30); Basophils % (Auto) 0.2 % (0.0-2.0); Eosinophils # (Auto) 0.15 K/mcL (0.00-0.70); Eosinophils % (Auto) 1.5 % (0.0-7.0); Hematocrit 46.2 % (40.1-51.0); Lymphocytes # (Auto) 1.12 K/mcL (1.50-4.80); Lymphocytes % (Auto) 11.5 % (15.5-49.0); Mean Cell Volume 97.5 fL (80.0-100.0); Mean Corpuscular HGB Conc 34.6 g/dL (31.0-36.0); Mean Platelet Volume 9.2 fL (8.8-12.5); Monocytes # (Auto) 0.37 K/mcL (0.10-0.90); Monocytes % (Auto) 3.8 % (1.0-12.0); Neutrophils % (Auto) 82.8 % (38.0-78.0); Platelet Count 175 K/mcL (140-440); RBC 4.74 M/mcL (4.63-6.08); WBC 9.7 K/mcL (4.5-11.0)
[2024-03-27] MEDS: fentaNYL 100 MCG/2 ML VIAL IV ONE (22:25)
[2024-03-27 22:30] LABS: ALT/SGPT 26 U/L (<40); AST/SGOT 34 U/L (<40); Albumin 4.1 gm/dL (3.2-5.2); Albumin/Globulin Ratio 1.6 (1.0-2.3); Alkaline Phosphatase 123 U/L (39-117); Bilirubin,Total 1.3 mg/dL (0.1-1.0); Blood Urea Nitrogen 12 mg/dL (8-23); Calcium 9.8 mg/dL (8.6-10.4); Carbon Dioxide 25 mmol/L (22-30); Chloride 101 mmol/L (96-108); Globulin 2.6 gm/dL (2.2-3.7); Glomerular Filtration Rate 90; Glucose 227 mg/dL (70-105); Potassium 3.6 mmol/L (3.3-5.1); Sodium 137 mmol/L (133-145)
[2024-03-28] MEDS: PIPERACILLIN SODIUM/TAZOBACTAM 3.375 GM in DEXTROSE 5% IN WATER 50 ML IV ONE (00:18)
[2024-03-28] MEDS ORDERED: ONDANSETRON 4 MG/2 ML VIAL IV PRN (00:34)
[2024-03-28] MEDS: fentaNYL 100 MCG/2 ML VIAL IV PRN (01:46)
[2024-03-28] MEDS: 0.9 % SODIUM CHLORIDE 1,000 ML IV SCH (01:47)
[2024-03-28] MEDS: PIPERACILLIN SODIUM/TAZOBACTAM 3.375 GM in DEXTROSE 5% IN WATER 100 ML IV SCH ×2 (04:27→11:06)
[2024-03-28] MEDS: METOCLOPRAMIDE 10 MG/2 ML VIAL ONE (05:15)
[2024-03-28] MEDS: METOCLOPRAMIDE 10 MG/2 ML VIAL IV SCH (05:16)
[2024-03-29 06:12] LABS: Basophils # (Auto) 0.01 K/mcL (0.00-0.30); Basophils % (Auto) 0.1 % (0.0-2.0); Eosinophils # (Auto) 0.06 K/mcL (0.00-0.70); Eosinophils % (Auto) 0.7 % (0.0-7.0); Hematocrit 39.4 % (40.1-51.0); Hemoglobin 13.6 g/dL (13.7-17.5); Lymphocytes # (Auto) 1.26 K/mcL (1.50-4.80); Lymphocytes % (Auto) 14.9 % (15.5-49.0); Mean Cell Volume 97.8 fL (80.0-100.0); Mean Corpuscular HGB Conc 34.5 g/dL (31.0-36.0); Mean Platelet Volume 9.5 fL (8.8-12.5); Monocytes # (Auto) 0.68 K/mcL (0.10-0.90); Neutrophils % (Auto) 76.1 % (38.0-78.0); Platelet Count 173 K/mcL (140-440); RBC 4.03 M/mcL (4.63-6.08); Red Cell Distribution Width 12.3 % (11.5-14.5); WBC 8.5 K/mcL (4.5-11.0)
[2024-03-29 07:06] LABS: ALT/SGPT 16 U/L (<40); AST/SGOT 17 U/L (<40); Albumin 3.3 gm/dL (3.2-5.2); Albumin/Globulin Ratio 1.6 (1.0-2.3); Alkaline Phosphatase 78 U/L (39-117); Bilirubin,Total 1.9 mg/dL (0.1-1.0); Blood Urea Nitrogen 15 mg/dL (8-23); Calcium 8.5 mg/dL (8.6-10.4); Carbon Dioxide 25 mmol/L (22-30); Chloride 108 mmol/L (96-108); Globulin 2.1 gm/dL (2.2-3.7); Glomerular Filtration Rate 90; Glucose 189 mg/dL (70-105); Potassium 3.4 mmol/L (3.3-5.1); Sodium 141 mmol/L (133-145)
[2024-03-29] MEDS: POLYETHYLENE GLYCOL 3350 17 GM PACKET PO SCH (16:02)
[2024-03-30 11:42] VITALS: TEMP 97.6; O2SAT 98
== END 2024-03-30 14:15 | disposition home or self-care (01) | DRG 390 ==
LOC: ED 20:57 → MEDSUR 03-28 01:14
PROVIDERS: ADMIT Family Medicine Adult Medicine; ATTEND Family Medicine Adult Medicine

== ENCOUNTER 2024-06-10 23:50 | Observation (INO) ==
[2024-06-10] MEDS ORDERED: IOPAMIDOL 100 ML BOTTLE IV ONE (23:51)
[2024-06-11] MEDS: KETOROLAC 30 MG/ML VIAL IV ONE (00:05)
[2024-06-11] MEDS: 0.9 % SODIUM CHLORIDE 1,000 ML IV ONE (00:05)
[2024-06-11] MEDS: ONDANSETRON 4 MG/2 ML VIAL IV ONE (00:06)
[2024-06-11 00:30] LABS: Basophils # (Auto) 0.02 K/mcL (0.00-0.30); Basophils % (Auto) 0.2 % (0.0-2.0); Eosinophils # (Auto) 0.07 K/mcL (0.00-0.70); Eosinophils % (Auto) 0.7 % (0.0-7.0); Hematocrit 49.7 % (40.1-51.0); Hemoglobin 17.5 g/dL (13.7-17.5); Lymphocytes # (Auto) 2.44 K/mcL (1.50-4.80); Lymphocytes % (Auto) 22.7 % (15.5-49.0); Mean Corpuscular HGB Conc 35.2 g/dL (31.0-36.0); Mean Platelet Volume 9.1 fL (8.8-12.5); Monocytes # (Auto) 0.73 K/mcL (0.10-0.90); Monocytes % (Auto) 6.8 % (1.0-12.0); Neutrophils % (Auto) 69.5 % (38.0-78.0); Platelet Count 223 K/mcL (140-440); RBC 5.23 M/mcL (4.63-6.08); WBC 10.7 K/mcL (4.5-11.0)
[2024-06-11 00:49] LABS: ALT/SGPT 28 U/L (<40); AST/SGOT 20 U/L (<40); Albumin 4.3 gm/dL (3.2-5.2); Albumin/Globulin Ratio 1.5 (1.0-2.3); Alkaline Phosphatase 97 U/L (39-117); Bilirubin,Total 0.5 mg/dL (0.1-1.0); Blood Urea Nitrogen 18 mg/dL (8-23); Carbon Dioxide 23 mmol/L (22-30); Chloride 102 mmol/L (96-108); Globulin 2.9 gm/dL (2.2-3.7); Glomerular Filtration Rate 90; Glucose 170 mg/dL (70-105); Potassium 3.9 mmol/L (3.3-5.1); Sodium 140 mmol/L (133-145)
[2024-06-11] MEDS ORDERED: morphine 2 MG/ML VIAL IV PRN (02:36)
[2024-06-11] MEDS ORDERED: ACETAMINOPHEN 325 MG TABLET PO PRN (02:36)
[2024-06-11] MEDS: 0.9 % SODIUM CHLORIDE 1,000 ML IV SCH (02:54)
[2024-06-11] MEDS: ONDANSETRON 4 MG/2 ML VIAL IV PRN (03:05)
[2024-06-11] MEDS: PROCHLORPERAZINE 10 MG/2 ML VIAL IV ONE (03:22)
[2024-06-11] MEDS: fentaNYL 100 MCG/2 ML VIAL IV PRN (03:46)
[2024-06-11] MEDS ORDERED: BUTALB/ACETAMINOPHEN/CAFFEINE 1 TABLET PO PRN (11:05)
[2024-06-11] MEDS: POLYETHYLENE GLYCOL 3350 17 GM PACKET PO SCH (11:42)
[2024-06-11] MEDS: METOCLOPRAMIDE 10 MG/2 ML VIAL IV SCH (11:43)
[2024-06-11] MEDS: metFORMIN 500 MG TABLET PO SCH (17:38)
[2024-06-11] MEDS: busPIRone 5 MG TABLET PO SCH (20:09)
[2024-06-11] MEDS: glipiZIDE 5 MG TAB.XL.24H PO SCH (20:09)
[2024-06-12] MEDS: OMEPRAZOLE 20 MG CAPSULE PO SCH (08:34)
[2024-06-12] MEDS: ESCITALOPRAM 20 MG TABLET PO SCH (08:34)
[2024-06-12] MEDS: buPROPion 150 MG TAB.XL.24H PO SCH (08:34)
[2024-06-12 15:19] VITALS: TEMP 97.4; O2SAT 97
== END 2024-06-12 16:22 | disposition home or self-care (01) ==
LOC: ED 23:50 → INTOOBSV 06-11 05:45 → MEDSUR 06-11 05:45
PROVIDERS: ADMIT Family Medicine Adult Medicine; ATTEND Family Medicine Adult Medicine

== ENCOUNTER 2024-10-10 20:52 | Inpatient (IN) ==
[2024-10-10] MEDS ORDERED: IOPAMIDOL 100 ML BOTTLE IV ONE (20:53)
[2024-10-10] MEDS: KETOROLAC 30 MG/ML VIAL IV ONE (21:20)
[2024-10-10] MEDS: ONDANSETRON 4 MG/2 ML VIAL IV ONE (21:30)
[2024-10-10 21:46] LABS: Basophils # (Auto) 0.02 K/mcL (0.00-0.30); Basophils % (Auto) 0.2 % (0.0-2.0); Eosinophils # (Auto) 0.11 K/mcL (0.00-0.70); Eosinophils % (Auto) 1.3 % (0.0-7.0); Hematocrit 47.3 % (40.1-51.0); Hemoglobin 16.6 g/dL (13.7-17.5); Lymphocytes # (Auto) 1.72 K/mcL (1.50-4.80); Lymphocytes % (Auto) 20.5 % (15.5-49.0); Mean Cell Volume 95.7 fL (80.0-100.0); Mean Corpuscular HGB Conc 35.1 g/dL (31.0-36.0); Monocytes # (Auto) 0.58 K/mcL (0.10-0.90); Monocytes % (Auto) 6.9 % (1.0-12.0); Neutrophils % (Auto) 70.9 % (38.0-78.0); Platelet Count 226 K/mcL (140-440); RBC 4.94 M/mcL (4.63-6.08); Red Cell Distribution Width 12.1 % (11.5-14.5); WBC 8.4 K/mcL (4.5-11.0)
[2024-10-10 22:09] LABS: ALT/SGPT 32 U/L (<40); AST/SGOT 21 U/L (<40); Albumin 4.3 gm/dL (3.2-5.2); Albumin/Globulin Ratio 1.5 (1.0-2.3); Alkaline Phosphatase 95 U/L (39-117); Bilirubin,Total 0.9 mg/dL (0.1-1.0); Blood Urea Nitrogen 16 mg/dL (8-23); Calcium 9.8 mg/dL (8.6-10.4); Carbon Dioxide 25 mmol/L (22-30); Chloride 102 mmol/L (96-108); Globulin 2.8 gm/dL (2.2-3.7); Glomerular Filtration Rate 96; Glucose 140 mg/dL (70-105); Potassium 4.1 mmol/L (3.3-5.1); Sodium 138 mmol/L (133-145)
[2024-10-10] MEDS ORDERED: ONDANSETRON 4 MG/2 ML VIAL IV PRN (23:38)
[2024-10-10] MEDS ORDERED: ACETAMINOPHEN 325 MG TABLET PO PRN (23:43)
[2024-10-10] MEDS ORDERED: morphine 2 MG/ML VIAL IV PRN (23:43)
[2024-10-11] MEDS: 0.9 % SODIUM CHLORIDE 1,000 ML IV SCH (00:35)
[2024-10-11] MEDS: METOCLOPRAMIDE 10 MG/2 ML VIAL IV SCH (00:35)
[2024-10-11] MEDS: POLYETHYLENE GLYCOL 3350 17 GM PACKET PO SCH (20:30)
[2024-10-12 12:04] VITALS: O2SAT 98
[2024-10-12 16:58] VITALS: TEMP 97
== END 2024-10-12 18:00 | disposition home or self-care (01) | DRG 389 ==
LOC: ED 20:52 → MEDSUR 10-11 04:55
PROVIDERS: ADMIT Family Medicine Adult Medicine; ATTEND Family Medicine Adult Medicine

== ENCOUNTER 2025-03-30 20:20 | Observation (INO) ==
[2025-03-30] MEDS ORDERED: IOPAMIDOL 100 ML BOTTLE IV ONE (20:21)
[2025-03-30] MEDS: ONDANSETRON 4 MG/2 ML VIAL IV ONE ×2 (20:45→22:50)
[2025-03-30] MEDS: fentaNYL 100 MCG/2 ML VIAL IV ONE (20:45)
[2025-03-30 20:49] LABS: Basophils # (Auto) 0.02 K/mcL (0.00-0.30); Basophils % (Auto) 0.3 % (0.0-2.0); Eosinophils # (Auto) 0.22 K/mcL (0.00-0.70); Eosinophils % (Auto) 2.9 % (0.0-7.0); Hematocrit 45.8 % (40.1-51.0); Hemoglobin 15.8 g/dL (13.7-17.5); Lymphocytes # (Auto) 1.47 K/mcL (1.50-4.80); Lymphocytes % (Auto) 19.5 % (15.5-49.0); Mean Corpuscular HGB Conc 34.5 g/dL (31.0-36.0); Monocytes # (Auto) 0.63 K/mcL (0.10-0.90); Monocytes % (Auto) 8.4 % (1.0-12.0); Neutrophils % (Auto) 68.4 % (38.0-78.0); Platelet Count 221 K/mcL (140-440); RBC 4.72 M/mcL (4.63-6.08); WBC 7.5 K/mcL (4.5-11.0)
[2025-03-30 21:10] LABS: ALT/SGPT 27 U/L (<40); AST/SGOT 18 U/L (<40); Albumin 4.4 gm/dL (3.2-5.2); Albumin/Globulin Ratio 1.7 (1.0-2.3); Alkaline Phosphatase 84 U/L (39-117); Anion Gap 10.0 (8.0-16.0); Bilirubin,Total 0.7 mg/dL (0.1-1.0); Blood Urea Nitrogen 15 mg/dL (8-23); Calcium 9.8 mg/dL (8.6-10.4); Carbon Dioxide 27 mmol/L (22-30); Chloride 103 mmol/L (96-108); Globulin 2.6 gm/dL (2.2-3.7); Glucose 137 mg/dL (70-105); Potassium 4.0 mmol/L (3.3-5.1); Sodium 140 mmol/L (133-145)
[2025-03-30 21:50] LABS: Bacteria,Urine 0 /hpf (0); Bilirubin,Urine Negative (Negative); Color,Urine Yellow; Glucose,Urine (UA) Negative (Negative); Ketones,Urine Negative (Negative); Leukocyte Esterase,Urine Negative /uL (Negative); PH,Urine 7.0 (5.0-9.0); Protein,Urine Negative (Negative); Specific Gravity,Urine 1.015 (1.000-1.035); Urobilinogen,Urine Normal
[2025-03-30] MEDS: diphenhydrAMINE 50 MG/ML VIAL IV ONE (22:50)
[2025-03-30] MEDS ORDERED: ONDANSETRON 4 MG/2 ML VIAL IV PRN (23:28)
[2025-03-30] MEDS: 0.9 % SODIUM CHLORIDE 1,000 ML IV SCH (23:52)
[2025-03-31] MEDS: fentaNYL 100 MCG/2 ML VIAL IV PRN (00:04)
[2025-03-31] MEDS: METOCLOPRAMIDE 10 MG/2 ML VIAL IV SCH (00:42)
[2025-03-31] MEDS: PYRIDOSTIGMINE BROMIDE 10 MG/2 ML AMPUL IV SCH (08:20)
[2025-03-31] MEDS ORDERED: DEXTROSE 31 GM ORAL.SUSP PO PRN (17:52)
[2025-03-31] MEDS ORDERED: DEXTROSE 50% 50 ML VIAL IV PRN (17:52)
[2025-03-31] MEDS: POLYETHYLENE GLYCOL 3350 17 GM PACKET PO SCH (18:01)
[2025-03-31] MEDS ORDERED: BUTALB/ACETAMINOPHEN/CAFFEINE 1 TABLET PO PRN (18:01)
[2025-03-31] MEDS: INSULIN LISPRO 1 UNIT/0.01 ML UNIT SQ SCH (18:06)
[2025-04-01 06:16] LABS: Basophils # (Auto) 0.02 K/mcL (0.00-0.30); Basophils % (Auto) 0.3 % (0.0-2.0); Eosinophils # (Auto) 0.13 K/mcL (0.00-0.70); Eosinophils % (Auto) 1.8 % (0.0-7.0); Hematocrit 39.9 % (40.1-51.0); Hemoglobin 13.8 g/dL (13.7-17.5); Lymphocytes # (Auto) 1.16 K/mcL (1.50-4.80); Lymphocytes % (Auto) 16.0 % (15.5-49.0); Mean Corpuscular HGB Conc 34.6 g/dL (31.0-36.0); Monocytes # (Auto) 0.55 K/mcL (0.10-0.90); Monocytes % (Auto) 7.6 % (1.0-12.0); Neutrophils % (Auto) 74.0 % (38.0-78.0); Platelet Count 185 K/mcL (140-440); RBC 4.07 M/mcL (4.63-6.08); WBC 7.2 K/mcL (4.5-11.0)
[2025-04-01 06:39] LABS: ALT/SGPT 18 U/L (<40); AST/SGOT 13 U/L (<40); Albumin 3.5 gm/dL (3.2-5.2); Albumin/Globulin Ratio 1.7 (1.0-2.3); Alkaline Phosphatase 62 U/L (39-117); Anion Gap 9.0 (8.0-16.0); Bilirubin,Direct 0.5 mg/dL (<0.3); Bilirubin,Total 1.3 mg/dL (0.1-1.0); Blood Urea Nitrogen 16 mg/dL (8-23); Calcium 8.4 mg/dL (8.6-10.4); Carbon Dioxide 21 mmol/L (22-30); Chloride 109 mmol/L (96-108); Globulin 2.1 gm/dL (2.2-3.7); Glucose 128 mg/dL (70-105); Phosphorous 2.1 mg/dL (2.5-4.5); Potassium 3.6 mmol/L (3.3-5.1); Sodium 139 mmol/L (133-145); Triglycerides 175 mg/dL (<150); Uric Acid 4.6 mg/dL (2.5-8.0)
[2025-04-01] MEDS: ESCITALOPRAM 20 MG TABLET PO SCH (08:14)
[2025-04-01] MEDS: buPROPion 150 MG TAB.XL.24H PO SCH (08:14)
[2025-04-01] MEDS: glipiZIDE 5 MG TAB.XL.24H PO SCH (12:00)
[2025-04-01] MEDS ORDERED: [UNRECOGNIZED DRUG - OTHER] IV SCH (15:30)
[2025-04-01] MEDS ORDERED: MAGNESIUM SULFATE IV SCH (15:30)
[2025-04-01] MEDS ORDERED: SODIUM CHLORIDE IV SCH (15:30)
[2025-04-01] MEDS ORDERED: CALCIUM GLUCONATE IV SCH (15:30)
[2025-04-01] MEDS: POTASSIUM PHOSPHATE 40 MEQ in DEXTROSE 5% IN WATER 500 ML IV SCH (16:51)
[2025-04-01] MEDS: INSULIN LISPRO 1 UNIT/0.01 ML UNIT SQ SCH (20:38)
[2025-04-02 06:13] LABS: Basophils # (Auto) 0.02 K/mcL (0.00-0.30); Basophils % (Auto) 0.3 % (0.0-2.0); Eosinophils # (Auto) 0.15 K/mcL (0.00-0.70); Eosinophils % (Auto) 2.6 % (0.0-7.0); Hematocrit 41.7 % (40.1-51.0); Hemoglobin 14.4 g/dL (13.7-17.5); Lymphocytes # (Auto) 0.97 K/mcL (1.50-4.80); Lymphocytes % (Auto) 16.8 % (15.5-49.0); Mean Corpuscular HGB Conc 34.5 g/dL (31.0-36.0); Monocytes # (Auto) 0.52 K/mcL (0.10-0.90); Monocytes % (Auto) 9.0 % (1.0-12.0); Neutrophils % (Auto) 71.0 % (38.0-78.0); Platelet Count 187 K/mcL (140-440); RBC 4.28 M/mcL (4.63-6.08); WBC 5.8 K/mcL (4.5-11.0)
[2025-04-02 06:36] LABS: ALT/SGPT 29 U/L (<40); AST/SGOT 18 U/L (<40); Albumin 3.8 gm/dL (3.2-5.2); Albumin/Globulin Ratio 1.8 (1.0-2.3); Alkaline Phosphatase 66 U/L (39-117); Anion Gap 11.0 (8.0-16.0); Bilirubin,Direct 0.4 mg/dL (<0.3); Bilirubin,Total 1.1 mg/dL (0.1-1.0); Blood Urea Nitrogen 7 mg/dL (8-23); Calcium 9.0 mg/dL (8.6-10.4); Carbon Dioxide 23 mmol/L (22-30); Chloride 107 mmol/L (96-108); Globulin 2.1 gm/dL (2.2-3.7); Glucose 107 mg/dL (70-105); Phosphorous 3.7 mg/dL (2.5-4.5); Potassium 3.9 mmol/L (3.3-5.1); Sodium 141 mmol/L (133-145); Triglycerides 177 mg/dL (<150); Uric Acid 4.1 mg/dL (2.5-8.0)
[2025-04-02 16:08] VITALS: TEMP 98.4; O2SAT 100
== END 2025-04-02 18:30 | disposition home or self-care (01) ==
LOC: MEDSUR 20:20 → ED 20:20 → MEDSUR 03-31 00:15
PROVIDERS: ADMIT Family Medicine Adult Medicine; ATTEND Family Medicine Adult Medicine